=== PATIENT | male | born 1970 | race Caucasian/White ===

== ENCOUNTER 2017-11-28 20:19 | Emergency (ER) | payer OTHER, SELFPAY ==
[2017-11-28 20:21] VITALS: BP 137/86; PULSE 59; RESP 18; TEMP 36.9; O2SAT 98; BMI 33.5
[2017-11-28] MEDS: Ondansetron 4 MG/2 ML Vial IV (22:06)
[2017-11-28] MEDS: Morphine 4 MG/ML Syringe IV (22:07)
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
[2017-11-29 00:25] VITALS: BP 164/102; PULSE 96; RESP 16; O2SAT 96
== END 2017-11-29 00:26 | disposition home or self-care (01) ==
PROVIDERS: Emergency Provider Emergency Medicine; Family Provider Family Medicine; PCP Family Medicine
DX: S16.1XXA Strain of muscle, fascia and tendon at neck level, initial encounter (principal); S20.219A Contusion of unspecified front wall of thorax, initial encounter; T22.052A Burn of unspecified degree of left shoulder, initial encounter; V89.2XXA Person injured in unspecified motor-vehicle accident, traffic, initial encounter; Y93.9 Activity, unspecified; Y92.9 Unspecified place or not applicable
CPT/HCPCS: 70450; 70498; 71260; 72125; 93005; 96374; 96375; 99283; Q9967

== ENCOUNTER 2020-12-26 15:50 | Outpatient (CLI) | payer BC, SELFPAY ==
[2020-12-26] MEDS: 0.9% Saline Lock 10 ML Syringe IV (16:11)
[2020-12-26 16:13] VITALS: BP 150/84; PULSE 77; RESP 18; TEMP 37.5; O2SAT 97; BMI 36.0
[2020-12-26 16:55] VITALS: BP 147/92; PULSE 73; RESP 16; TEMP 37.9; O2SAT 98
[2020-12-26 17:55] VITALS: BP 151/84; PULSE 75; RESP 16; TEMP 37.4; O2SAT 98
== END 2020-12-26 17:58 | disposition home or self-care (01) ==
LOC: ICUOUT 15:50 → MS2 15:56
PROVIDERS: PCP Family Medicine; Referring Provider Nurse Practitioner Adult Health; Visit Provider Nurse Practitioner Adult Health
DX: Z23 Encounter for immunization (principal); U07.1 COVID-19
CPT/HCPCS: J7050; M0243; A4216; Q0244

== ENCOUNTER 2022-04-03 10:06 | Emergency (ER) | payer BC, SELFPAY ==
[2022-04-03 10:08] VITALS: BP 141/84; PULSE 80; RESP 16; TEMP 36.2; O2SAT 95; BMI 38.0
--- NOTE | 2022-04-03 10:34 | VDLE_ITS ---
Reason For Study: LEG PAIN RIGHT LEFT GSV is normal. CFV is compressible, spontaneous, phasic, CFV is compressible, spontaneous, phasic, competent, and demonstrates normal competent and demonstrates normal augmentation. augmentation. FV is compressible, spontaneous, phasic, competent and demonstrates normal augmentation. POP V is compressible, spontaneous, phasic, competent and demonstrates normal augmentation. T/P Trunk is compressible. PTV is compressible. RT PerV is compressible. Possible hematoma or injury noted in Rt medial gastrocnemius muscle. Procedure This is a venous duplex using B-mode, color flow and spectral Doppler. Exam performed portable in ED. The exam was diagnostic. A preliminary report was called and/or faxed to ED Charge Nurse. VL/Venous Duplex US, Unilateral Interpretation Summary There is no evidence of right lower extremity deep vein thrombosis. Right great saphenous vein appears patent and compressible segmentally. Vague finding right medial gastroc nemius muscle-- undefined, clinical correlation indicated. Normal flow patterns left common femoral vein Ordering Physician: Adolph Saunders Performed By: Yazan Gutierrez RVT
--- NOTE | 2022-04-03 10:35 | ED.VIS.LOWEX ---
HPI History of Present Illness Chief Complaint: Lower Extremity Injury Narrative Narrative: 51-year-old male presenting with right calf pain. He states this started a couple weeks ago. He states there was some bruising in the right medial calf which is slowly getting better. His pain is actually improving, and only hurts sometimes when he is walking.. He does not have any significant edema. Patient has no history of DVT, history of cancer, being bedridden or immobilized, trauma, exogenous hormones. Patient states he is ambulatory. He states his primary care physician wanted him to come to the ER to get an ultrasound to rule out DVT [facility] Medical History HTN (hypertension) Home Medications albuterol sulfate 90 mcg/actuation aerosol inhaler 2 inh inhalation Q4H PRN sob 12/26/20 [History Last Taken Unknown] meloxicam 15 mg tablet 15 mg PO DAILY 12/26/20 [History Last Taken Unknown] Allergy/AdvReac Type Severity Reaction Status Date / Time ampicillin Allergy Rash Verified 04/03/22 10:07 lisinopril AdvReac cough Verified 04/03/22 10:08 Social History Smoking Status: Unknown if ever smoked ROS ROS ED Constitutional Constitutional ED: Denies chills, fever(s) or sweats Eyes Eyes: Denies blurry vision or change in vision ENT ENT ED: Denies ear pain or sore throat Cardiovascular Cardiovascular: Denies chest pain, palpitations or racing heartbeat Respiratory/Chest Respiratory/Chest: Denies cough, dyspnea or sputum Gastrointestinal Gastrointestinal: Denies abdominal pain, constipation, diarrhea, nausea or vomiting Genitourinary Genitourinary ED: Denies dysuria, hematuria or urinary frequency Musculoskeletal Musculoskeletal: Reports other Details: Right medial calf pain ; Denies arthralgias, myalgias or neck pain Integumentary Denies abscess, Abrasions or rash Neurologic Neurologic: Denies headache(s), paresthesias or weakness Psychiatric Psychiatric: Denies anxiety, depression, suicidal ideation or suicidal thoughts Endocrine Endocrinology: Denies polydipsia or polyuria EXAM Physical Exam Const Vital Signs: 04/03/22 10:08 Temperature 97.2 F L Temperature Source Temporal Pulse Rate 80 Respiratory Rate 16 Blood Pressure 141/84 H Blood Pressure Mean 103 Pulse Ox 95 Oxygen Delivery Method Room Air Positive well nourished General Appearance ED: Negative for pallor HEENT Reports normocephalic, head/scalp atraumatic and moist mucous membranes Eyes PERRL and EOMs intact bilaterally Resp normal respiratory effort and no retractions Cardio regular rate and regular rhythm GI normal to inspection, nondistended, normoactive bowel sounds Auscultation: normoactive bowel sounds Palpation: soft Narrative: Deferred Extremity normal to inspection Extremity Narrative: Very mild tenderness right medial calf. No erythema, edema, induration. No cords palpated. General Extremety ED: Negative for edema General Extremity: Negative for edema Neuro oriented x3 and CN's II-XII intact bilaterally Sensorium / Orientation: alert Motor Exam: strength 5/5 throughout Psych mental status grossly normal Attitude: No agitated Skin no rashes or lesions noted and no wounds General Skin Exam: Negative for jaundice or pallor MDM MDM MDM Narrative Medical decision making narrative: Patient presented with right leg pain. He was referred to the emergency room for evaluation of concern for DVT. Venous Doppler was performed today and is negative for acute DVT. Patient counseled on findings. He is to follow-up with his PCP to ensure resolution. Impression: 1. Right leg pain Lab Data Attestation: I reviewed the patient's lab results. Discharge Plan Triage Chief Complaint: Lower Extremity Injury ED Provider: Adolph Saunders Dx/Rx/DC Orders Instructions: ED Leg Spasm Prescriptions: No Action meloxicam 15 mg tablet 15 mg PO DAILY Label Comments: TAKE 1 (ONE) TABLET (15 MG TOTAL) BY MOUTH DAILY . albuterol sulfate 90 mcg/actuation HFA aerosol inhaler 2 inh INHALATION Q4H PRN (Reason: sob) Label Comments: INHALE 2 PUFFS INSTRUCTED EVERY 4 HOURS NEEDED FOR WHEEZING/SHORTNESS OF BREATH. Primary Care Provider: Scooter Esquivel Referrals: Scooter Esquivel MD [Primary Care Provider] - Disposition Disposition: Home, Self Care Discharge Date/Time: 04/03/22 12:06
== END 2022-04-03 12:06 | disposition home or self-care (01) ==
PROVIDERS: Emergency Provider Student in an Organized Health Care Education/Training Program; PCP Family Medicine; Visit Provider Student in an Organized Health Care Education/Training Program
DX: M79.604 Pain in right leg (principal)
CPT/HCPCS: 93971; 99282

== ENCOUNTER → 2022-06-11 | Outpatient (CLI) | payer BC, SELFPAY ==
[2022-06-11 17:44] LABS: Absolute Lymphocyte Count 2.08 X10^3/uL (0.83-4.51); Absolute Neutrophil Count 6.8 X10^3/uL (2.0-7.7); Basophil# 0.06 X10^3/uL; Basophil% 0.6 % (0-1); Eosinophil# 0.16 X10^3/uL; Eosinophils% 1.6 % (0-5); Hematocrit 44.6 % (40-54); Hemoglobin 15.6 g/dL (13.0-16.5); Lymphocyte # 2.08 X10^3/ul (0.83-4.51); Lymphocyte % 21.1 % (19-41); Mean Corpuscular Hgb 30.2 pg (27.0-32.0); Mean Corpuscular Volume 86.4 fL (80-94); Mean Platelet Vol. 9.2 fl (6.2-12.0); Monocyte# 0.69 X10^3/uL; NRBC Flagged by Analyzer 0 % (0-5); Neutrophil # 6.77 X10^3/uL (2.7-7.7); Neutrophil % 68.7 % (47-70); Platelet Count 236 K/mm3 (150-450); RBC Distribution Width CV 12.2 % (11.6-14.6); RBC Distribution Width SD 38.6 fl (35.1-43.9); Red Blood Count 5.16 M/mm3 (4.6-6.2); White Blood Count 9.9 K/mm3 (4.4-11.0)
[2022-06-11 18:13] LABS: ALB/GLOB Ratio 1.1 RATIO (0.9-2.4); AST(SGOT) 23 U/L (15-37); Alanine Aminotransfer ALT/SGPT 47 U/L (16-61); Albumin, Serum 3.9 g/dL (3.2-5.0); Alkaline Phosphatase 85 U/L (45-117); Anion Gap 7 (5-15); BUN 20 mg/dL (7-18); BUN/Creat Ratio 20.8 RATIO (10-20); Calcium,Total 9.1 mg/dL (8.5-10.1); Chloride 105 mmol/L (98-107); Creatinine, Serum 0.96 mg/dL (0.70-1.30); EST Glomerular Filtration Rate 87 mL/min (>60); Est Glom Filt Rate - Afr Amer 106 mL/min (>60); Globulin 3.4 g/dL (2.2-4.2); Glucose 108 mg/dL (74-106); Potassium 3.9 mmol/L (3.5-5.1); Protein, Total 7.3 g/dL (6.4-8.2); Rheumatoid Factor < 10.0 IU/mL (<15); Sodium Level 139 mmol/L (136-145)
[2022-06-11 18:37] LABS: Hepatitis B Surface Antibody Non-Reactive; Hepatitis B Surface Antigen Non-Reactive (Nonreactive); Hepatitis C Antibody Non-Reactive (Nonreactive)
[2022-06-14 18:51] LABS: CCP IgG Antibodies 1 units (0-19)
== END | disposition home or self-care (01) ==
LOC: MTLAB 14:24
PROVIDERS: PCP Family Medicine; Referring Provider Internal Medicine Rheumatology; Visit Provider Internal Medicine Rheumatology
DX: M06.4 Inflammatory polyarthropathy (principal); M79.7 Fibromyalgia; M17.0 Bilateral primary osteoarthritis of knee; M18.0 Bilateral primary osteoarthritis of first carpometacarpal joints
CPT/HCPCS: 36415; 80053; 85025; 86038; 86200; 86431; 86706; 86803; 87340

== ENCOUNTER 2023-05-17 18:48 | Emergency (ER) | payer BC, SELFPAY ==
[2023-05-17 18:49] VITALS: BP 188/96; PULSE 92; RESP 20; TEMP 36.4; O2SAT 96; BMI 42.0
--- NOTE | 2023-05-17 19:35 | US_ITS ---
STUDY: VENOUS DOPPLER ULTRASOUND - RIGHT LOWER EXTREMITY REASON FOR EXAM: Male, 52 years old. RT LEG SWELLING AND ELEV D DIMER TECHNIQUE: Ultrasound evaluation of the deep vein system to include celis-scale imaging and compression was performed. Celis-scale imaging and Doppler sonographic evaluation, including duplex spectral analysis and qualitative color flow sonography, was performed. COMPARISON: None. FINDINGS: Common Femoral Vein: Normal compression, spontaneity and augmentation. Normal color Doppler. Common Femoral Vein/Greater Saphenous Junction: Normal compression, spontaneity and augmentation. Normal color Doppler. Deep Femoral Vein: Normal compression, spontaneity and augmentation. Normal color Doppler. Femoral Proximal: Normal compression, spontaneity and augmentation. Normal color Doppler. Femoral Middle: Normal compression, spontaneity and augmentation. Normal color Doppler. Femoral Distal: Normal compression, spontaneity and augmentation. Normal color Doppler. Popliteal Vein: Normal compression, spontaneity and augmentation. Normal color Doppler. Posterior Tibial Vein: Normal compression, spontaneity and augmentation. Normal color Doppler. Peroneal Vein: Normal compression, spontaneity and augmentation. Normal color Doppler. US/Venous Duplex Imag/Limited/Uni IMPRESSION: No evidence for DVT. Electronically Signed: Asher Reilly MD at 21:17 EST ,
--- OUTSIDE RECORDS SUMMARY | 2023-05-17 20:09 | XMS RPT_ITS | CCD ---
Author Name Unknown Address [address] [place] [address] Organization [facility] Care Team Providers Care Surgical Scrub Technologist Name Role Phone Scooter Esquivel MD Primary Care Provider SCOOTER ESQUIVEL Primary Care Unavailable CORINNE FAIRCHILD Attending Unavailable CORINNE FAIRCHILD Referring Unavailable SCOOTER ESQUIVEL Primary Care Unavailable CORINNE FAIRCHILD Attending Unavailable CORINNE FAIRCHILD Referring Unavailable Scooter Esquivel MD Primary Care Provider Caroline Romo MD Unavailable Scooter Esquivel MD Primary Care Provider Caroline Romo MD Unavailable Scooter Esquivel MD Primary Care Provider Scooter Esquivel MD Primary Care Provider Caroline Romo MD Unavailable Scooter Esquivel MD Primary Care Provider CORINNE FAIRCHILD Admitting Unavailable SCOOTER ESQUIVEL Primary Care Unavailable CORINNE FAIRCHILD Admitting Unavailable CORINNE FAIRCHILD Referring Unavailable SCOOTER ESQUIVEL Primary Care Unavailable SCOOTER ESQUIVEL Primary Care Unavailable CORINNE FAIRCHILD Attending Unavailable SCOOTER ESQUIVEL Primary Care Unavailable CORINNE FAIRCHILD Attending Unavailable KERLINE HANSEN Attending Unavailable SCOOTER ESQUIVEL Primary Care Unavailable CORINNE FAIRCHILD Admitting Unavailable CORINNE FAIRCHILD Referring Unavailable SCOOTER ESQUIVEL Primary Care Unavailable Caroline Romo MD Unavailable SCOOTER ESQUIVEL Primary Care Unavailable TOMASZ WISDOM Attending Unavailable POLIJUAN MELTON Referring Unavailable JUAN, SCOOTER J Primary Care Unavailable TOMASZ WISDOM Attending Unavailable POLITIJUAN Referring Unavailable JUAN, SCOOTER J Primary Care Unavailable TOMASZ WISDOM Attending Unavailable POLITIJUAN Referring Unavailable JUAN, SCOOTER J Primary Care Unavailable TOMASZ WISDOM Attending Unavailable POLITIJUAN Referring Unavailable CAROLINE ROMO M.D. Attending Unavailable JUAN, [facility] Primary Care Unavailable JUAN, [facility] Primary Care Unavailable JUAN, SCOOTER J Referring Unavailable JUAN, [facility] Primary Care Unavailable JUAN, SCOOTER Attending Unavailable JUAN, [facility] Primary Care Unavailable TOMASZ WISDOM Attending Unavailable POLITIJUAN Referring Unavailable JUAN, SCOOTER J Primary Care Unavailable POLITI, JUAN CORTEZ Referring Unavailable JUAN, [facility] Primary Care Unavailable TOMASZ WISDOM Attending Unavailable POLITIJUAN Referring Unavailable JUAN, SCOOTER J Primary Care Unavailable TOMASZ WISDOM Attending Unavailable POLITIJUAN Referring Unavailable JUAN, [facility] Primary Care Unavailable TOMASZ WISDOM Attending Unavailable POLITIJUAN Referring Unavailable JUAN, [facility] Primary Care Unavailable TOMASZ WISDOM Attending Unavailable POLITIJUAN Referring Unavailable JUAN, [facility] Primary Care Unavailable TOMASZ WISDOM Attending Unavailable POLITIJUAN Referring Unavailable JUAN, [facility] Primary Care Unavailable TOMASZ WISDOM Attending Unavailable POLITIJUAN Referring Unavailable JUAN, SCOOTER J Primary Care Unavailable TOMASZ WISDOM Attending Unavailable POLITIJUAN Referring Unavailable JUAN, [facility] Primary Care Unavailable TOMASZ WISDOM Attending Unavailable POLITIJUAN Referring Unavailable JUAN, [facility] Primary Care Unavailable POLITIJUAN Referring Unavailable JUAN, [facility] Primary Care Unavailable TOMASZ WISDOM Attending Unavailable POLITIJUAN Referring Unavailable JUAN, SCOOTER J Primary Care Unavailable JUAN, [facility] Primary Care Unavailable JUAN, SCOOTER J Referring Unavailable JUAN, [facility] Primary Care Unavailable SURAJ KING II Attending Unavailabl e JUAN, S[facility] [place] Primary Care Unavailable JUAN, SCOOTER J Referring Unavailable JUAN, SCOOTER Primary Care Unavailable TOMASZ WISDOM Attending Unavailable POLITIJUAN Referring Unavailable JUAN, [facility] Primary Care Unavailable TOMASZ WISDOM Attending Unavailable POLILINH, JUAN CORTEZ Referring Unavailable JUAN, SCO[place]ER [place] Primary Care Unavailable POLITI, JUAN CORTEZ Referring Unavailable JUAN, S[place] [place] Primary Care Unavailable TOMASZ WISDOM Attending Unavailable POLITI, JUAN CORTEZ Referring Unavailable JUAN, S[place] Primary Care Unavailable TOMASZ WISDOM Attending Unavailable POLITI, JUAN CORTEZ Referring Unavailable JUAN, S[place] [place] Primary Care Unavailable TOMASZ WISDOM Attending Unavailable POLITI, JUAN CORTEZ Referring Unavailable JUAN, S[place] [place] Primary Care Unavailable POLITI, JUAN CORTEZ Referring Unavailable JUAN, SCO[place]ER [place] Primary Care Unavailable POLITI, JUAN CORTEZ Referring Unavailable JUAN, SCO[place]ER [place] Primary Care Unavailable POLITI, JUAN CORTEZ Referring Unavailable JUAN, S[facility] [place] Primary Care Unavailable TOMASZ WISDOM Attending Unavailable POLITI, JUAN CORTEZ Referring Unavailable JUAN, S[place] [place] Primary Care Unavailable TOMASZ WISDOM Attending Unavailable POLITI, JUAN CORTEZ Referring Unavailable JUAN, S[facility] [place] Primary Care Unavailable TOMASZ WISDOM Attending Unavailable POLITI, JUAN CORTEZ Referring Unavailable Allergies Allergy Classification Reported Allergen(s) Allergy Type Date of Onset Reaction(s) Facility Penicillins (antibiotic) (2 sources) Ampicillin; Translations: [AMPICILLIN] Drug Allergy 3 [facility] (20 sources) Ampicillin; Translations: [AMPICILLIN] Drug Allergy 3 [facility] (20 sources) Seasonal allergy; Translations: [SEASONAL ALLERGIES] Propensity to adverse reactions 5 Cough [facility] (20 sources) Lisinopril; Translations: [LISINOPRIL] Drug Allergy 2 Cough, Other (See Comments) [facility] Medications Current Medications Medication Drug Class(es) Dates Sig (Normalized) Sig (Original) cefdinir 300 mg oral capsule (1 source) Cephalosporin Antibacterial Start: 07-23-2021 End: 07-30-2021 take 1 capsule by mouth twice daily cefdinir (OMNICEF) 300 mg capsule Take 1 capsule by mouth twice daily for 7 days. 14 capsule 0 07/23/2021 07/30/2021 Active Completed/Discontinued Medications Medication Drug Class(es) Dates Sig (Normalized) Sig (Original) [id number] 200 actuat albuterol 0.09 mg/actuat metered dose inhaler (20 sources) beta2-Adrenergic Agonist Start: 04-05-2023 take 2 puff(s) by inhalation every four hours as needed for wheezing albuterol HFA (PROVENTIL HFA) 90 mcg/actuation inhaler Indications: Wheezing Inhale 2 Puffs as instructed every 4 hours as needed for wheezing/shortnes s of breath. 8 g 0 04/05/2023 Active Problems Active Problems Problem Classification Problem Date Documented Date Episodic/Chronic Acute myocardial infarction (20 sources) Myocardial infarction; Translations: [Non-ST elevation (NSTEMI) myocardial infarction] Onset: 5 09-24-2020 Chronic Administrative/socia l admission (2 sources) Repeated prescription; Translations: [Encounter for issue of repeat prescription] Episodic Coronary atherosclerosis and other heart disease (20 sources) Coronary arteriosclerosis in [place] artery; Translations: [Atherosclerotic heart disease of [place] coronary artery without angina pectoris] Onset: 5 09-24-2020 Chronic Diabetes mellitus without complication (20 sources) Increased glucose level; Translations: [Other abnormal glucose] Onset: 3 08-05-2012 Episodic Disorders of lipid metabolism (20 sources) Hyperlipidemia; Translations: [Hyperlipidemia, unspecified] Onset: 0 09-24-2020 Chronic Disorders of teeth and jaw (2 sources) Toothache; Translations: [Other specified disorders of teeth and supporting structures] Episodic Esophageal disorders (2 sources) Gastroesophageal reflux disease; Translations: [Gastro-esophageal reflux disease without esophagitis] Chronic Essential hypertension (20 sources) Essential hypertension; Translations: [Essential (primary) hypertension] Onset: 5 09-24-2020 Chronic Osteoarthritis (20 sources) Osteoarthritis of right knee joint; Translations: [Unilateral primary osteoarthritis, right knee] Onset: 2 Chronic Other acquired deformities (20 sources) Equinus contracture of the ankle; Translations: [Contracture, unspecified ankle] Onset: 7 04-28-2016 Chronic Other aftercare (1 source) Other correction (current) drug therapy; Translations: [Long-term (current) use of other medications] Episodic Other connective tissue disease (20 sources) History of total knee arthroplasty; Translations: [Presence of right artificial knee joint] Onset: 3 01-26-2023 Chronic Other connective tissue disease (2 sources) Tendonitis of left wrist; Translations: [Other enthesopathies, not elsewhere classified] Episodic Other connective tissue disease (1 source) Bursitis of unspecified shoulder; Translations: [Disorders of bursae and tendons in shoulder region, unspecified] Episodic Other connective tissue disease (1 source) Capsulitis of metatarsophalangeal joint of right foot; Translations: [Other enthesopathy of right foot and ankle] Episodic Other connective tissue disease (1 source) Foot pain; Translations: [Pain in unspecified foot] Episodic Other connective tissue disease (1 source) Triggering of digit; Translations: [Trigger finger, right middle finger] Episodic Other injuries and conditions due to external causes (1 source) H/O: fracture; Translations: [Personal history of (healed) traumatic fracture] Episodic Other nervous system disorders (1 source) Poor concentration; Translations: [Attention and concentration deficit] Chronic Other non-traumatic joint disorders (1 source) Joint pain; Translations: [Pain in unspecified joint] Episodic Other non-traumatic joint disorders (1 source) Multiple joint pain; Translations: [Pain in unspecified joint] Episodic Other non-traumatic joint disorders (4 sources) Pain in unspecified joint; Translations: [Pain in unspecified joint] Onset: 3 Episodic Other nutritional; endocrine; and metabolic disorders (20 sources) Obesity; Translations: [Obesity, unspecified] Onset: 5 12-06-2014 Chronic Other screening for suspected conditions (not mental disorders or infectious disease) (2 sources) Patient encounter status; Translations: [Encounter for screening for malignant neoplasm of colon] Episodic Other upper respiratory disease (2 sources) Disorder of epiglottis; Translations: [Other diseases of larynx] Episodic Other upper respiratory infections (1 source) Acute frontal sinusitis; Translations: [Acute frontal sinusitis, unspecified] 05-16-2023 Episodic Otitis media and related conditions (1 source) Acute right otitis media; Translations: [Otitis media, unspecified, right ear] Episodic Residual codes; unclassified (20 sources) Obstructive sleep apnea syndrome; Translations: [Obstructive sleep apnea (adult) (pediatric)] Onset: 6 09-24-2020 Chronic Residual codes; unclassified (1 source) Obstructive sleep apnea (adult) (pediatric); Translations: [ANÍBAL (obstructive sleep apnea)] Onset: 7 Chronic Residual codes; unclassified (3 sources) Pain; Translations: [Pain, unspecified] Episodic Residual codes; unclassified (2 sources) Pain, unspecified; Translations: [Pain, unspecified] Onset: 3 Episodic Residual codes; unclassified (1 source) Bilateral lower limb edema; Translations: [Localized edema] 05-16-2023 Episodic Rheumatoid arthritis and related disease (20 sources) Inflammatory polyarthropathy; Translations: [Other specified inflammatory polyarthropathies] Onset: 4 08-05-2003 Chronic Unclassified (20 sources) SUMMARY Onset: 5 02-16-2015 Past or Other Problems Problem Classification Problem Date Documented Da te Episodic/Chronic Blindness and vision defects (20 sources) Presbyopia; Translations: [Presbyopia] Onset: 01-01-2015 01-10-2017 Episodic Immunizations and screening for infectious disease (1 source) Encounter for immunization; Translations: [Encounter for immunization] Onset: 12-27-2022 Episodic Other connective tissue disease (2 sources) Trigger finger, right middle finger; Translations: [Trigger finger, right middle finger] Onset: 09-09-2021 Episodic Other non-traumatic joint disorders (20 sources) Sesamoiditis; Translations: [Other specified joint disorders, unspecified joint] Onset: 12-06-2013 12-06-2013 Episodic Residual codes; unclassified (20 sources) Family history of diabetes mellitus; Translations: [Family history of diabetes mellitus] Onset: 10-24-2009 10-24-2009 Episodic Results Test Name Value Interpretation Reference Range Facil ity Vital Signs Date Time Vital Sign Value Performing Clinician Faci lity 05-16-2023 16:37-0500 Diastolic blood pressure 84 mm[Hg] Catrina Clark APRN.JOINERY MACHINIST Work Phone: [facility] 05-16-2023 16:37-0500 Systolic blood pressure 149 mm[Hg] Catrina Clark APRN.JOINERY MACHINIST Work Phone: [facility] 05-16-2023 16:36-0500 Heart rate 98 /min Catrina Clark APRN.JOINERY MACHINIST Work Phone: [facility] 05-16-2023 16:24-0500 Body temperature 97.81 [degF] Catrina Cabreraan CIGARETTE INSPECTOR.JOINERY MACHINIST Work Phone: [facility] 05-16-2023 16:24-0500 Body weight 114.76 kg Catrina Suppan CIGARETTE INSPECTOR.JOINERY MACHINIST Work Phone: [facility] 05-16-2023 16:24-0500 Respiratory rate 20 /min Catrina Suppan CIGARETTE INSPECTOR.JOINERY MACHINIST Work Phone: [facility] 05-16-2023 16:24-0500 SaO2% (BldA) [Mass fraction] 96 % Catrina Suppan CIGARETTE INSPECTOR.JOINERY MACHINIST Work Phone: [facility] 12-27-2022 17:52-0400 Body weight 110.68 kg Scooter Esquivel MD Work Phone: [facility] 12-27-2022 17:52-0400 Diastolic blood pressure 78 mm[Hg] Scooter Esquivel MD Work Phone: [facility] 12-27-2022 17:52-0400 Heart rate 82 /min Scooter Esquivel MD Work Phone: [facility] 12-27-2022 17:52-0400 SaO2% (BldA) [Mass fraction] 96 % Scooter Esquivel MD Work Phone: [facility] 12-27-2022 17:52-0400 Systolic blood pressure 132 mm[Hg] Scooter Esquivel MD Work Phone: [facility] 10-19-2022 16:19-0400 Body height 168.9 cm Caroline Romo MD Work Phone: [facility] 10-19-2022 16:19-0400 Body weight 108.41 kg Caroline Romo MD Work Phone: [facility] 10-19-2022 16:19-0400 Diastolic blood pressure 88 mm[Hg] Caroline Romo MD Work Phone: [facility] 10-19-2022 16:19-0400 Heart rate 80 /min Caroline Romo MD Work Phone: [facility] 10-19-2022 16:19-0400 Systolic blood pressure 132 mm[Hg] Caroline Romo MD Work Phone: [facility] 10-24-2021 14:25-0400 Body temperature 97.81 [degF] Aime Jansen MD Work Phone: [facility] 10-24-2021 14:25-0400 Body weight 105.69 kg Aime Jansen MD Work Phone: [facility] 10-24-2021 14:25-0400 Diastolic blood pressure 82 mm[Hg] Aime Jansen MD Work Phone: [facility] 10-24-2021 14:25-0400 Heart rate 72 /min Aime Jansen MD Work Phone: [facility] 10-24-2021 14:25-0400 Respiratory rate 16 /min Aime Jansen MD Work Phone: [facility] 10-24-2021 14:25-0400 SaO2% (BldA) [Mass fraction] 96 % Aime Jansen MD Work Phone: [facility] 10-24-2021 14:25-0400 Systolic blood pressure 136 mm[Hg] Aime Jansen MD Work Phone: [facility] 08-25-2021 16:10-0400 Body height 170.2 cm Smiley Tomy PA-C Work Phone: [facility] 08-25-2021 16:10-0400 Body temperature 97.3 [degF] Smiley Hopkins PA-C Work Phone: [facility] 08-25-2021 16:10-0400 Body weight 107.05 kg Smiley Hopkins PA-C Work Phone: [facility] 08-25-2021 16:10-0400 Diastolic blood pressure 82 mm[Hg] Smiley Hopkins PA-C Work Phone: [facility] 08-25-2021 16:10-0400 Heart rate 75 /min Smiley Hopkins PA-C Work Phone: [facility] 08-25-2021 16:10-0400 SaO2% (BldA) [Mass fraction] 96 % Smiley Tomy PA-C Work Phone: [facility] 08-25-2021 16:10-0400 Systolic blood pressure 122 mm[Hg] Smiley Hopkins PA-C Work Phone: [facility] 08-19-2021 11:30-0400 Diastolic blood pressure 72 mm[Hg] Alen Dickerson MD Work Phone: [facility] 08-19-2021 11:30-0400 Heart rate 60 /min Alen Dickerson MD Work Phone: [facility] 08-19-2021 11:30-0400 Respiratory rate 13 /min Alen Dickerson MD Work Phone: [facility] 08-19-2021 11:30-0400 SaO2% (BldA) [Mass fraction] 95 % Alen Dickerson MD Work Phone: [facility] 08-19-2021 11:30-0400 Systolic blood pressure 124 mm[Hg] Alen Dickerson MD Work Phone: [facility] 08-19-2021 11:03-0400 Body temperature 97 [degF] Alen Dickerson MD Work Phone: [facility] 08-14-2021 16:26-0400 Body height 167.6 cm Caroline Romo MD Work Phone: [facility] 08-14-2021 16:26-0400 Body weight 107.96 kg Caroline Romo MD Work Phone: [facility] 08-14-2021 16:26-0400 Diastolic blood pressure 88 mm[Hg] Caroline Romo MD Work Phone: [facility] 08-14-2021 16:26-0400 Heart rate 76 /min Caroline Romo MD Work Phone: [facility] 08-14-2021 16:26-0400 Systolic blood pressure 130 mm[Hg] Caroline Romo MD Work Phone: [facility] 07-23-2021 17:45-0400 Body temperature 97.9 [degF] Malachi Chaudhry CIGARETTE INSPECTOR.SOLE STAPLER WELT Work Phone: [facility] 07-23-2021 17:45-0400 Body weight 110.59 kg Malachi Chaudhry CIGARETTE INSPECTOR.SOLE STAPLER WELT Work Phone: [facility] 07-23-2021 17:45-0400 Diastolic blood pressure 84 mm[Hg] Malachi Chaudhry CIGARETTE INSPECTOR.SOLE STAPLER WELT Work Phone: [facility] 07-23-2021 17:45-0400 Heart rate 76 /min Malachi Chaudhry CIGARETTE INSPECTOR.SOLE STAPLER WELT Work Phone: [facility] 07-23-2021 17:45-0400 Respiratory rate 16 /min Malachi Chaudhry CIGARETTE INSPECTOR.SOLE STAPLER WELT Work Phone: [facility] 07-23-2021 17:45-0400 SaO2% (BldA) [Mass fraction] 97 % Malachi Chaudhry CIGARETTE INSPECTOR.SOLE STAPLER WELT Work Phone: [facility] 07-23-2021 17:45-0400 Systolic blood pressure 138 mm[Hg] Malachi Chaudhry CIGARETTE INSPECTOR.SOLE STAPLER WELT Work Phone: [facility] 09-23-2020 15:16-0400 Body height 170.2 cm Corinne Fairchild SOLE STAPLER WELT Work Phone: [facility] 09-23-2020 15:16-0400 Body mass index (BMI) [Ratio] 35.24 kg/m2 Corinne Fairchild SOLE STAPLER WELT Work Phone: [facility] 09-23-2020 15:16-0400 Body weight 102.06 kg Corinne Fairchild SOLE STAPLER WELT Work Phone: [facility] Encounters Encounter Date Encounter Type Care Provider Facility Start: 05-16-2023 End: 05-16-2023 Office outpatient visit 25 minutes Catrina Clark CIGARETTE INSPECTOR.JOINERY MACHINIST Work Phone: [facility] Procedures Date Procedure Procedure Detail Performing Clinician Start: 12-27-2022 INFLUENZA VACCINE, AGE 6 MO - 64 YR, QUADRIVALENT (AFLURIA, FLULAVAL, FLUZONE) Scooter Esquivel MD Work Phone: Start: 10-19-2022 Ecg routine ecg w/least 12 lds i&r only [facility] Provider Start: 06-01-2022 Arthrocentesis aspir&/inj major jt/bursa w/o us Corinne Fairchild SOLE STAPLER WELT Work Phone: Start: 06-01-2022 Injection 1 tendon sheath/ligament aponeurosis Corinne Fairchild SOLE STAPLER WELT Work Phone: Start: 05-22-2022 Lipid 1996 panel - Serum or Plasma Willi katie Esquivel MD Work Phone: Start: 08-19-2021 Colon ca scrn not hi rsk ind Smiley Huitron PA-C Work Phone: Start: 08-19-2021 Esophagogastroduodenoscopy transoral diagnostic Smiley Huitron PA-C Work Phone: Start: 08-19-2021 Colonoscopy Alen Dickerson MD Work Phone: Start: 09-23-2020 Arthrocentesis aspir&/inj major jt/bursa w/o us Coirnne Fairchild [employer]LE STAP[employer]ER [employer]T Work Phone: Start: 06-08-2018 Adult depression screening assessment Virginia Stevens DPM Work Phone: Plan of Treatment Date Care Activity Detail Author Start: 08-20-2031 Screening for malign ant neoplasm of colon [facility] Start: 05-22-2027 Lipid 1996 panel - S soumya or Plasma Lipid Screening [facility] Start: 05-22-2027 Lipid panel Lipid Screening [facility] Start: 05-22-2027 LIPID SCREEN LIPID SCREEN [facility] Start: 08-19-2026 Colonoscopy COLONOSCOPY [facility] Start: 08-19-2026 COLORECTAL CANCER SCREENING COLORECTAL CANCER SCREENING [facility] Start: 08-19-2026 Screening for malign ant neoplasm of colon [facility] Start: 01-21-2027 LIPID SCREEN LIPID SCREEN [facility] Start: 12-29-2025 Diabetes Screening Diabetes Screenin g [facility] Start: 10-29-2025 Diabetes Screening Diabetes Screenin g [facility] Start: 05-22-2025 DIABETES SCREEN DIABETES SCREEN [facility] Start: 05-01-2024 DIABETES SCREEN DIABETES SCREEN [facility] Start: 02-23-2024 Tetanus vaccination Tetanus: Every 1 0yrs [facility] Start: 02-23-2024 Urine microalbumin profile [facility] Start: 12-28-2023 Annual PCP Team Consultant Internship samuel Disease Visit Annual PCP Team Chronic Disease Visit [facility] Start: 12-28-2023 Covid-19 Vaccine ( season) Covid-19 Vaccine () [facility] Immunizations Immunization Date Immunization Notes Care Provider Angi garza 12-27-2022 influenza, injectabl e, quadrivalent, contains preservative Scooter Esquivel MD Work Phone: [facility] [facility] [place] 02-08-2020 influenza, seasonal, injectable Virginia Hild DPM Work Phone: [facility] [place] 02-20-2019 influenza, injectabl e, quadrivalent, contains preservative Virginia Hild DPM Work Phone: [facility] [place] 02-11-2018 influenza, injectabl e, quadrivalent, contains preservative Virginia Hild DPM Work Phone: [facility] [place] 01-11-2017 influenza, injectabl e, quadrivalent, contains preservative Virginia Hild DPM Work Phone: [facility] [place] 06-01-2016 influenza, injectabl e, quadrivalent, preservative free Virginia Hild DPM Work Phone: [facility] [place] 01-24-2015 influenza, seasonal, injectable Virginia Hild DPM Work Phone: [facility] [place] 02-22-2014 tetanus toxoid, redu marcelino diphtheria toxoid, and acellular pertussis vaccine, adsorbed Virginia Hild DPM Work Phone: [facility] [place] Work Phone: 03-21-2013 influenza virus vaccine, unspecified formulation Virginia Hild DPM Work Phone: [facility] [place] 08-26-2003 tetanus and diphther ia toxoids, adsorbed, preservative free, for adult use (2 Lf of tetanus toxoid and 2 Lf of diphtheria toxoid) Virginia Stevens DPM Work Phone: [facility] [place] Payers Date Payer Category Payer Unknown [id number] 2021 Unknown MIKYDANIELLA ARORA [employer]E SS PPO [id number] 2021-Present [phone] [id number] [place] [address] PPO [id number] 2018 Unknown [id number] 2018 Unknown [id number] 2018 Unknown [id number] 2018 Unknown [id number] 2017 Unknown VISION SERVICE P [facility] VISION [id number] 2017-Present [address] [facility] [id number] [place] [address] Indemnity [id number] 2017 Unknown [id number] 2011 Unknown EYE [employer] PLAN [employer] VISION [id number] 04/11/2011-Present [address] [facility] [id number] [place] [address] Indemnity [id number] 04-11-2011 Unknown [id number] 1970 Unknown [id number] 2 1970 Unknown [id number] 2 1970 Unknown [id number] 3 1970 Unknown [id number] 3 1970 Unknown [id number] 3 1970 Unknown [id number] 3 1970 Unknown [id number] 3 1970 Unknown [id number] 3 Social History Date Type Detail Facility Tobacco smoking stat [facility] Unknown if ever smoked [facility] Start: 1970 Sex Assigned At Not on file O [facility] Start: 07-04-2021 End: 05-31-2022 Exposure to SARS-CoV-2 (event) Not sure [facility] Start: 09-24-2020 End: 12-08-2021 Tobacco smoking status NHIS Former smoker [facility] [place] Start: 09-23-2020 End: 09-24-2020 Tobacco use and exposure Never used [facility] Start: 09-24-2020 End: 05-16-2023 Alcohol intake Current drinker of alcohol (finding) [facility] Start: 09-23-2020 Alcohol Comment 1-4 drinks per week [facility] History of tobacco use Cigarette Smoker [facility] History of tobacco use Current smoker [facility] Start: 12-08-2021 End: 10-19-2022 Cigarettes smoked current (pack per day) - Reported 0.5 [facility] [place] Start: 12-08-2021 Tobacco use and exposure Roseline wright smokeless tobacco user [facility] [place] Start: 03-31-2022 History SDOH Alcohol Frequency 3 [facility] [place] Start: 03-31-2022 History SDOH Alcohol Std Drinks 2 [facility] [place] Start: 03-31-2022 History SDOH Social Connections Phone 5 [facility] [place] Start: 03-31-2022 History SDOH Social Connections Membership 1 [facility] [place] Start: 03-31-2022 History SDOH Physica l Activity MPS 0 [facility] [place] Start: 03-31-2022 History SDOH Financial 4 [facility] [place] Start: 06-01-2022 End: 10-19-2022 Tobacco use panel [facility] [place] Start: 09-23-2020 Gender identity Identifies as male gender (finding) [facility] Start: 09-23-2020 Sexual orientation Heterosexual (fin yessi) [facility] Do you belong to any clubs or organizations such as roman catholic groups, unions, fraternal or athletic groups, or school groups? Yes [facility] [place] Are you now , , , , never or living with a partner? [facility] [place] How often to you hav e a drink containing alcohol? 2-4 times a month [facility] [place] How many standard dr inks containing alcohol do you have on a typical day? 3 or 4 [facility] [place] How often do you hav e 6 or more drinks on 1 occasion? Less than monthly [facility] [place] How hard is it for y ou to pay for the very basics like food, housing, medical care, and heating Not very hard [facility] [place] Adult Depression Scr eening Assessment 0 [facility] [place] Do you feel stress - tense, restless, nervous, or anxious, or unable to sleep at night because your mind is troubled all the time - these days [OSQ] Only a little [facility] [place] (I/We) worried wheth er (my/our) food would run out before (I/we) got money to buy more. Never true [facility] [place] In the past 12 month s, was there a time when you were not able to pay the mortgage or rent on time? No [facility] [place] Clinical Notes 04-28-2016 to 05-16-2023 Patient InstructionsSuCatrina jones APRN.JOINERY MACHINIST - 05/16/2023 4:43 PM Tomasz Godwin, PT - 05/11/2023 5:54 PM Tomasz Godwin, PT - 03/25/2023 1:49 PM ESTPatient Instructions Note Date & Type Note Facility 05-16-2023 Instructions Catrina Clark APRN.JOINERY MACHINIST - 05/16/2023 5:12 PM EST 1) Get labs today 2) No Meloxicam while on steroid 3) Doxycycline 100mg 2 x day for 10 days for sinus infection 4) Keep appt. With Dr. Esquivel next month documented in this encounter [facility] [place] 05-16-2023 History of Present illness Narrative This is a 52 year old male who presents today with: Patient presents with: Edema: Bilateral lower legs Dizziness Shortness of Breath HISTORY OF PRESENT ILLNESS: Gregory Barrera is a 52 year old male. Patient presents with: Edema: Bilateral lower legs Dizziness Shortness of Breath On 6th prescription of dexamethasone to get control of pain. Has not been doing exercises regularly. Back to work as of 05/09/23. Worried about swelling in both lower legs. BP a little elevated. Pain behind knee cap , both sides of patella, and and lateral lower leg. Dizzy this morning for about 5 hours this morning. Short of breath- breathing heavy for awhile. ANÍBAL- wears CPAP every night, using melatonin 30 min before bedtime REVIEW OF SYSTEMS GENERAL: + weight loss of 20 lb since surgery, + tired, no fevers/chills HEENT:More frequent dull headaches, No changes in hearing or vision. Family thinks he can't hear well. NECK: Negative for lumps, goiter, pain and significant neck swelling RESPIRATORY: Negative for cough, hemoptysis, wheezing, some dyspnea or shortness of breath even at rest CARDIOVASCULAR: Negative for chest pain, some sock lines leg swelling, orthopnea, or palpitations GI: No nausea, vomiting, or diarrhea/constipation. No hematochezia/melena. + heartburn or reflux symptoms. : No history of dysuria, frequency or incontinence MUSCULOSKELETAL: Pain in TKA- 04/20, swelling 1+ right, trace left SKIN: Rash medial right leg from ice pack PAST MEDICAL HISTORY: PAST MEDICAL HISTORY Diagnosis Date Acute gastritis Coronary artery disease Hyperlipidemia Hypertension AÍNBAL (obstructive sleep apnea) [facility] in [place] Osteoarthritis of multiple joints Rheumatoid arthritis(714.0) pt states he was misdiagnosed- he has osteoarthritis PAST SURGICAL HISTORY Procedure Laterality Date COLONOSCOPY 08/19/2021 consider repeat in 5 years based on prep EGD W/O [facility] SPEC VARICIES INJ 08/19/2021 epiglottis nodule. GERD and gastritis PAST SURGICAL HISTORY OF Right 04/1994 4th finger repair RPR 1ST INGUN HRNA AGE 6 MO-5 YRS INCARCERATED 09/1975 ALLERGIES Ampicillin, Lisinopril, and Seasonal Allergies MEDICATIONS Current Outpatient Medications Medication Sig albuterol HFA (PROVENTIL HFA) 90 mcg/actuation inhaler Inhale 2 Puffs as instructed every 4 hours as needed for wheezing/shortness of breath. atorvastatin (LIPITOR) 80 mg tablet TAKE ONE TABLET BY MOUTH EVERY NIGHT AT BEDTIME losartan (COZAAR) 50 mg tablet TAKE ONE TABLET BY MOUTH DAILY isosorbide mononitrate ER (IMDUR) 30 mg 24 hr tablet TAKE ONE TABLET BY MOUTH DAILY carvedilol (COREG) 3.125 mg tablet TAKE ONE TABLET BY MOUTH TWICE DAILY WITH MEALS. buPROPion XL (WELLBUTRIN XL) 300 mg 24 hr tablet Take 1 tablet by mouth once daily. omeprazole (PRILOSEC) 20 mg capsule Take 1 capsule by mouth once daily. aspirin 81 mg chewable tablet Take 1 tablet by mouth once daily. CPAP NEW SET UP: Settings 7 - 15 cm H2O, suitable mask per pt preference, chin strap, head gear, humidity, tubing, lifetime supplies. G47.33 ANÍBAL No current facility-administered medications for this visit. FAMILY HISTORY Problem Relation Age of Onset Heart Father other (Heart attack) Father at around 60 years of age Diabetes Mother Hypertension Sister Diabetes Maternal Grandmother Heart Maternal Grandfather several heart attacks Hypertension Paternal Grandfather Social History Tobacco Use Smoking status: Former Packs/day: .5 Types: Cigarettes Smokeless tobacco: Former Vaping Use Vaping Use: Never used Substance Use Topics Alcohol use: Yes Alcohol/week: 2.6 standard drinks of alcohol Types: 2 Mixed Drinks per week Comment: 1 mixed drink a month Drug use: No EXAM: BP 149/84 Pulse 98 Temp 36.6 C (97.8 F) (Left Tympanic) Resp 20 Wt 114.8 kg (253 lb) SpO2 96% BMI 40.23 kg/m PHYSICAL EXAM: General Appearance: Well appearing, alert, in no acute distress, well-hydrated, well nourished. and Obese. Skin: Skin color, texture, turgor normal, no suspicious rashes or lesions, viri red cheks. Head: .normocephalic and atraumatic Nasal: ears buldging, nasal turbinates red & inflamed, right nare w/ erosions Neck: Supple, no adenopathy; thyroid symmetric, normal size, no bruits, thick- full neck. Lungs: Lungs clear to auscultation. No wheezing, rhonchi, rales.. Heart: RRR without murmur, gallop, or rubs. No ectopy. Abdomen: Normal abdominal exam, Abdomen soft, non-tender. Bowel sounds normal. No masses, organomegaly, hypoactive FERNANDEZ. Musculoskeletal: right knee mild swelling, right lower leg with 1+ edema, negative Yusuf's sign; left with trace edema- sock lines. Peripheral Pulses: Normal. Neurologic: Gait normal. Reflexes normal and symmetric. Sensation grossly intact.. ASSESSMENT/PLAN: 1. Status post total knee replacement, right - ICD9: V43.65, ICD10: Z96.651 (primary diagnosis) Patient has been on dexamethasone long tapers since January. His weight has increased by 20 pounds. 2. History of CT (myocardial infarction) - ICD9: 412, ICD10: I25.2 Stable. No chest pain or orthopnea. Blood pressure has increased but patient has been taking high-dose steroids since January. Has an appointment next month, will need blood pressure rechecked. If it remains elevated, medications will need to be adjusted. - COMP METABOLIC PANEL - NT PRO BNP - CBC + DIFF 3. ANÍBAL (obstructive sleep apnea) - ICD9: 327.23, ICD10: G47.33 Wearing CPAP - CBC + DIFF 4. Bilateral lower extremity edema - ICD9: 782.3, ICD10: R60.0 Negative Homans' sign, very doubtful that he has a DVT. Patient has been on long-term steroids and meloxicam. D-dimer as a precaution. If slightly elevated even, will get a venous Doppler. - COMP METABOLIC PANEL - D-DIMER 5. Prediabetes - ICD9: 790.29, ICD10: R73.03 Check hemoglobin A1c. Patient would like to be on Ozempic for weight loss. Discussed the fact that he is not actually diabetic. Although blood sugars may have increase the 20 pound weight gain. - HGB A1C 6. Acute frontal sinusitis, recurrence not specified - ICD9: 461.1, ICD10: J01.10 Likely the source of patient's wheezing as it is upper airway wheezing. - DOXYCYCLINE HYCLATE 100 MG TABLET for 10 days Discussed treatment plan and patient voices understanding. Patient's questions answered appropriately. Medications and potential side effects were discussed and patient voices understanding. Return to the office as scheduled or as needed for worsening/no improvement. The patient indicates understanding of these issues and agrees with the plan. documented in this encounter [facility] [place] 05-11-2023 Note HNO ID: [id number] Author: TOMASZ WISDOM PT Service: ? Author Type: Physical Therapist Type: Progress Notes Filed: 05/12/2023 09:28 Note Text: Episode Visit Count: 7 Therapist That Will Accept/Oversee The Plan Of Care: Tomasz Wisdom PT. Start of Care Date: 01/26/23 Onset Date: 01/24/23 Patient Identified by Name and Date of : Yes REHABILITATION AND SPORTS THERAPY PHYSICAL THERAPY TREATMENT NOTE ASSESSMENT: Gregory Barrera tolerated the session with fatigue and expected muscle soreness. He demonstrated difficulty with compensation of lateral trunk lean with R SLS. The patient will continue to benefit from ongoing skilled physical therapy to progress toward set goals. PLAN FOR NEXT VISIT: Continue LE strengthening, add more core strength. SUBJECTIVE: Pt returned to work this week and states that his knee is swelling due to being on his feet all day. Pt's knee is now back to being sensitive to touch. Pt requests to do some stretching in session due to swelling of his knee. Pain: Pain Pain Level: 3 Pain Location: Knee - Right Description: Tightness (due to swelling) Post Treatment Pain Post Treatment Pain Location: Knee - Right OBJECTIVE MEASURES WITH LEVEL OF FUNCTION: RLE easily fatigued with single leg standing exercises. TREATMENT: Therapeutic Exercise: 1: Stationary Upright Bike Full-Revolutions, Seat Height 5: 6.5 Minutes, level 3.0. (Direct 1:1 throughout, subjective taken.) 2: Prone quad stretch 3x30 seconds 3: Supine hip flexor / quad stretch 3x30 seconds RLE 4: Standing hip stabilization with R SLS with physioball at height of patella against plinth. 2x10 seconds, 2x15 seconds (cues for form) 5: R SLS 5# KB passes 3x5 (difficulty maintaining upright trunk) 6: 1.5 Rep Squats: 2x10. (Half Squats - ascend back up - down to a full squat to chair.) 7: Hoist Pallof Press: 2x[address], 2Plates/2Rounds. 8: Stir the Pot at Hoist 2plates, plus 2 round 1x10 CW and CCW facing each direction 9: Stationary bike at end of session for cool down x 5 minutes Skilled Intervention: Patient was educated in proper exercise technique and purpose for exercises. Skilled judgment was used in selection of appropriate interventions. Correct performance of therapeutic exercises was facilitated with verbal and visual cuing. Billing Therapeutic Exercise Treatment Minutes: 53 Skilled Treatment Time Minutes (timed and untimed codes): 53 Total Session Time (minutes): 53 Session Start Time : 1752 Session Stop Time : 1845 Sidra Yates, GODWIN Wisdom, PT, DPT. [facility] 05-11-2023 History of Present illness Narrative Episode Visit Count: 7 Therapist That Will Accept/Oversee The Plan Of Care: Tomasz Wisdom PT. Start of Care Date: 01/26/23 Onset Date: 01/24/23 Patient Identified by Name and Date of : Yes REHABILITATION AND SPORTS THERAPY PHYSICAL THERAPY TREATMENT NOTE ASSESSMENT: Gregory Barrera tolerated the session with fatigue and expected muscle soreness. He demonstrated difficulty with compensation of lateral trunk lean with R SLS. The patient will continue to benefit from ongoing skilled physical therapy to progress toward set goals. PLAN FOR NEXT VISIT: Continue LE strengthening, add more core strength. SUBJECTIVE: Pt returned to work this week and states that his knee is swelling due to being on his feet all day. Pt's knee is now back to being sensitive to touch. Pt requests to do some stretching in session due to swelling of his knee. Pain: Pain Pain Level: 3 Pain Location: Knee - Right Description: Tightness (due to swelling) Post Treatment Pain Post Treatment Pain Location: Knee - Right OBJECTIVE MEASURES WITH LEVEL OF FUNCTION: RLE easily fatigued with single leg standing exercises. TREATMENT: Therapeutic Exercise: 1: Stationary Upright Bike Full-Revolutions, Seat Height 5: 6.5 Minutes, level 3.0. (Direct 1:1 throughout, subjective taken.) 2: Prone quad stretch 3x30 seconds 3: Supine hip flexor / quad stretch 3x30 seconds RLE 4: Standing hip stabilization with R SLS with physioball at height of patella against plinth. 2x10 seconds, 2x15 seconds (cues for form) 5: R SLS 5# KB passes 3x5 (difficulty maintaining upright trunk) 6: 1.5 Rep Squats: 2x10. (Half Squats - ascend back up - down to a full squat to chair.) 7: Hoist Pallof Press: 2x[address], 2Plates/2Rounds. 8: Stir the Pot at Hoist 2plates, plus 2 round 1x10 CW and CCW facing each direction 9: Stationary bike at end of session for cool down x 5 minutes Skilled Intervention: Patient was educated in proper exercise technique and purpose for exercises. Skilled judgment was used in selection of appropriate interventions. Correct performance of therapeutic exercises was facilitated with verbal and visual cuing. Billing Therapeutic Exercise Treatment Minutes: 53 Skilled Treatment Time Minutes (timed and untimed codes): 53 Total Session Time (minutes): 53 Session Start Time : 175 Session Stop Time : 1845 Sidra Yates, GODWIN Wisdom PT, DPT. documented in this encounter [facility] [place] 05-06-2023 Note HNO ID: [id number] Author: TOMASZ WISDOM PT Service: ? Author Type: Physical Therapist Type: Progress Notes Filed: 05/06/2023 09:58 Note Text: Episode Visit Count: 6 Therapist That Will Accept/Oversee The Plan Of Care: Tomasz Wisdom PT. Start of Care Date: 01/26/23 Onset Date: 01/24/23 Patient Identified by Name and Date of : Yes REHABILITATION AND SPORTS THERAPY PHYSICAL THERAPY TREATMENT NOTE ASSESSMENT: Gregory Barrera tolerated the session with fatigue and expected muscle soreness. He demonstrated improvements in SL control during Hip 4-Way on airex. The patient will continue to benefit from ongoing skilled physical therapy to progress toward set goals. PLAN FOR NEXT VISIT: Continue LE strengthening, trial SL stance KB passes; add more core strength. SUBJECTIVE: Patient states two days of soreness following last session; was more yesterday than Tuesday; arrives with some soreness today but better overall. Pain: Pain Pain Level: 4 Pain Location: Knee - Right Description: Sore Post Treatment Pain Post Treatment Pain Location: Knee - Right Post Treatment Pain Description: Sore OBJECTIVE MEASURES WITH LEVEL OF FUNCTION: Good form demonstrated throughout session. Fatigued with Pallof Press and Deficit Calf Raises. TREATMENT: Therapeutic Exercise: 1: Stationary Upright Bike Full-Revolutions, Seat Height 5: 6.5 Minutes, level 3.0. (Direct 1:1 throughout, subjective taken.) 2: R Prostretch: 3x30 . 3: Dynamic HS Stretch w/ Toes on Elevated Slant: 2x15, 5-sec hold. 4: Hip 4-way on Airex: 2x10 each leg. 5: Hoist Pallof Press: 1x[address], 2Plates/2Rounds. 6: 1.5 Rep Squats: 2x10. (Half Squats - ascend back up - down to a full squat to chair.) 7: DBL Deficit Calf Raise off 4in box: 2x20. Skilled Intervention: Patient was educated in proper exercise technique and purpose for exercises. Reviewed and educated patient on additions/changes for home exercise program as above (*). Skilled judgment was used in selection of appropriate interventions. Provided written instruction for home exercise program to facilitate proper performance and compliance. Correct performance of therapeutic exercises was facilitated with verbal, visual, and tactile cuing. Billing Therapeutic Exercise Treatment Minutes: 40 Skilled Treatment Time Minutes (timed and untimed codes): 40 Total Session Time (minutes): 40 Session Start Time : 916 Session Stop Time : 956 Tomasz Wisdom PT [facility] 05-03-2023 Note HNO ID: [id number] Author: TOMASZ WISDOM PT Service: ? Author Type: Physical Therapist Type: Progress Notes Filed: 05/03/2023 10:13 Note Text: Episode Visit Count: 5 Therapist That Will Accept/Oversee The Plan Of Care: Tomasz Wisdom PT. Start of Care Date: 01/26/23 Onset Date: 01/24/23 Patient Identified by Name and Date of : Yes REHABILITATION AND SPORTS THERAPY PHYSICAL THERAPY TREATMENT NOTE ASSESSMENT: Gregory Barrera tolerated the session with fatigue and expected muscle soreness. He demonstrated difficulty with fatigue from lateral walkouts and reduced tightness in the R Calf. The patient will continue to benefit from ongoing skilled physical therapy to progress toward set goals and to continue with post-operative protocol. PLAN FOR NEXT VISIT: Progress LE ther-ex; add core strengthening. SUBJECTIVE: Patient reports best he felt after in awhile after last session . 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 Pain: Pain Pain Level: 1 Pain Location: Knee - Right Description: Sore Post Treatment Pain Post Treatment Pain Location: Knee - Right Post Treatment Pain Description: Sore Post Treatment Symptoms: Legs Fatigued. OBJECTIVE MEASURES WITH LEVEL OF FUNCTION: Difficulty with L Lateral Lunge on Slideboard compared to R. TREATMENT: Therapeutic Exercise: 1: Stationary Upright Bike Full-Revolutions, Seat Height 5: 7 Minutes, level 3.0. (Direct 1:1 throughout, subjective taken.) 2: R Prostretch: 3x30 . 3: 2-1 R Ankle Deficit Calf Raise Eccentrics: 2x15, 3-5sec decline. 4: DBL Leg Press 80#: 3x15. 5: SL Leg Press: 2x15, 50#. 6: Hip 4-way on Airex: 1x10 each leg. 7: Stool pulls: 2x30 ft. with RLE 8: DBL Leg Hip Thrust off table: 2x10. 9: Slide Board Lateral Lunge w/ Pullback: 2x[address] e[address]. 10: Lateral Walking from Hoist: 1x10, each way. Skilled Intervention: Patient was educated in proper exercise technique and purpose for exercises. Skilled judgment was used in selection of appropriate interventions. Correct performance of therapeutic exercises was facilitated with verbal, visual, and tactile cuing. Manual Therapy: 1: IaSTM to R Distal Quads, and Calf: Push to tolerance. Skilled Intervention: Manual skills to improve joint mobility, ROM, and decrease pain. Utilized anatomy knowledge of the therapist, and assessment of patient's response to intervention. Billing Therapeutic Exercise Treatment Minutes: 47 Manual TherapyTreatment Minutes: 10 Skilled Treatment Time Minutes (timed and untimed codes): 57 Total Session Time (minutes): 57 Session Start Time : 856 Session Stop Time : 09 Tomasz Wisdom PT [facility] 04-29-2023 Note HNO ID: [id number] Author: TOMASZ WISDOM PT Service: ? Author Type: Physical Therapist Type: Progress Notes Filed: 04/29/2023 10:53 Note Text: Episode Visit Count: 4 Therapist That Will Accept/Oversee The Plan Of Care: Tomasz Wisdom PT. Start of Care Date: 01/26/23 Onset Date: 01/24/23 Patient Identified by Name and Date of : Yes REHABILITATION AND SPORTS THERAPY PHYSICAL THERAPY TREATMENT NOTE ASSESSMENT: Gregory Barrera tolerated the session with expected muscle soreness. He demonstrated difficulty with eccentric control of the R Quad. The patient will continue to benefit from ongoing skilled physical therapy to progress toward set goals. PLAN FOR NEXT VISIT: Hip 4-way series on Airex; add core exercises. SUBJECTIVE: Pt. reports he saw Dr. Craig two days ago; surgeon gave steroid taper and NSAID rx; surgeon continues to tell patient to keep working at overall Knee Strength + Motion as tolerated. Goes back to work on the of this month. Pain: Pain Pain Level: 2 Pain Location: Knee - Right Description: Stiffness, Sore Post Treatment Pain Post Treatment Pain Location: Knee - Right Post Treatment Pain Description: Sore Post Treatment Symptoms: B LE Fatigue OBJECTIVE MEASURES WITH LEVEL OF FUNCTION: Decreased SL R Quad control during descend of SL leg press. TREATMENT: Therapeutic Exercise: 1: Stationary Upright Bike Full-Revolutions, Seat Height 5: 6.5 Minutes, level 3.0. (Direct 1:1 throughout, subjective taken.) 2: R FWD Stepup w/ TKE: 2x15, BTB. 3: R Curtsy Step-Down from 10-inch box: 2x15. 4: 1.5 Rep Squats: 2x8. (Half Squats - ascend back up - down to a full squat to chair.) 5: DBL Leg Press 80#: 2x15. 6: SL Leg Press: 2x10, 50#. 7: 2-1 RLE Eccentric Lower 5-sec: 2x10, 40#. 8: DBL Leg Hip Thrust off table: 2x10. 9: Slide Board Lateral Lunge w/ Pullback: 2x[address]. 10: *Education on Hip clocks for addition to HEP. Skilled Intervention: Patient was educated in proper exercise technique and purpose for exercises. Reviewed and educated patient on additions/changes for home exercise program as above (*). Skilled judgment was used in selection of appropriate interventions. Provided written instruction for home exercise program to facilitate proper performance and compliance. Correct performance of therapeutic exercises was facilitated with verbal, visual, and tactile cuing. Billing Therapeutic Exercise Treatment Minutes: 55 Skilled Treatment Time Minutes (timed and untimed codes): 55 Total Session Time (minutes): 55 Session Start Time : 954 Session Stop Time : 1050 Tomasz Widsom PT [facility] 04-26-2023 Note HNO ID: [id number] Author: TOMASZ WISDOM PT Service: ? Author Type: Physical Therapist Type: Progress Notes Filed: 04/26/2023 11:06 Note Text: Episode Visit Count: 3 Therapist That Will Accept/Oversee The Plan Of Care: Tomasz Wisdom PT. Start of Care Date: 01/26/23 Onset Date: 01/24/23 Patient Identified by Name and Date of : Yes REHABILITATION AND SPORTS THERAPY PHYSICAL THERAPY TREATMENT NOTE ASSESSMENT: Gregory Barrera tolerated the session with fatigue and expected muscle soreness. He demonstrated improvements in R knee flexion AAROM. The patient will continue to benefit from ongoing skilled physical therapy to progress toward set goals. PLAN FOR NEXT VISIT: Assess response to leg press and consider single leg. SUBJECTIVE: Pt reports that his knee is stiff today. Pt states soreness after last session. Pt states only being able to stand for 5 minutes before his knee gets really tight and uncomfortable. Pain: Pain Pain Level: 2 Pain Location: Knee - Right Description: Stiffness Post Treatment Pain Post Treatment Pain Location: Knee - Right Post Treatment Symptoms: fatigue OBJECTIVE MEASURES WITH LEVEL OF FUNCTION: LE AROM R Knee Extension: 0 Degrees R Knee Flexion: 121 Degrees (AAROM in supine with strap assist) TREATMENT: Therapeutic Exercise: 1: Stationary Upright Bike Full-Revolutions, Seat Height 5: 6.5 Minutes, level 3.0. (Seated lowered for Knee Motion; Direct 1:1 throughout, subjective taken.) 2: heel slides with strap 2x10 3: Quad sets 1x5 4: Step downs on 4 inch step 1x10 RLE, on 6 inch step 1x15 5: Step ups on 10 inch step 2x15 RLE 6: Standing hip abduction 2x15 B 7: Standing hip extension 2x10 B Skilled Intervention: Patient was educated in proper exercise technique and purpose for exercises. Skilled judgment was used in selection of appropriate interventions. Correct performance of therapeutic exercises was facilitated with verbal and visual cuing. Billing Therapeutic Exercise Treatment Minutes: 40 Skilled Treatment Time Minutes (timed and untimed codes): 40 Total Session Time (minutes): 40 Session Start Time : 929 Session Stop Time : 1010 Sidra YatesGODWIN, PT, DPT. [facility] 04-22-2023 Note HNO ID: [id number] Author: TOMASZ WISDOM PT Service: ? Author Type: Physical Therapist Type: Progress Notes Filed: 04/22/2023 15:32 Note Text: Episode Visit Count: 2 Therapist That Will Accept/Oversee The Plan Of Care: Tomasz Wisdom PT. Start of Care Date: 01/26/23 Onset Date: 01/24/23 Patient Identified by Name and Date of : Yes REHABILITATION AND SPORTS THERAPY PHYSICAL THERAPY TREATMENT NOTE ASSESSMENT: Gregory Barrera tolerated the session with fatigue and expected muscle soreness. He demonstrated difficulty with standing on RLE to perform exercises on LLE. The patient will continue to benefit from ongoing skilled physical therapy to progress toward set goals. PLAN FOR NEXT VISIT: Take measurements for follow up. Continue with strengthening and stabilization of R knee. SUBJECTIVE: Pt reports that a few days ago he knelt down on his R knee for a brief period and now his knee is really hurting. Pt states that he stood for 25 minutes and his knee and hips really hurt. Pain: Pain Pain Level: 4 Pain Location: Knee - Right Description: Stiffness Post Treatment Pain Post Treatment Pain Level: No Change Post Treatment Pain Location: Knee - Right OBJECTIVE MEASURES WITH LEVEL OF FUNCTION: Increased swelling of R knee with exercise TREATMENT: Therapeutic Exercise: 1: Stationary Upright Bike Full-Revolutions, Seat Height 5: 6.5 Minutes, level 3.0. (Seated lowered for Knee Motion; Direct 1:1 throughout, subjective taken.) 2: Wall squats 2x10 3: Lunges on FERNANDEZ 2x10 B 4: *Standing hip abduction 2x15 B (for increased stability in R knee) 5: *Standing hip extension 2x10 B (for increased stability in R knee) 6: *Standing HS curls 7: Stool pulls x 30 ft. with RLE Skilled Intervention: Patient was educated in proper exercise technique and purpose for exercises. Reviewed and educated patient on additions/changes for home exercise program as above (*). Skilled judgment was used in selection of appropriate interventions. Provided written instruction for home exercise program to facilitate proper performance and compliance. Correct performance of therapeutic exercises was facilitated with verbal and visual cuing. Billing Therapeutic Exercise Treatment Minutes: 43 Skilled Treatment Time Minutes (timed and untimed codes): 43 Total Session Time (minutes): 43 Session Start Time : 1354 Session Stop Time : 1437 Sidra Yates, GODWIN Tomasz Wisdom, PT, DPT. [facility] 04-13-2023 Note HNO ID: [id number] Author: TOMASZ WISDOM PT Service: ? Author Type: Physical Therapist Type: Progress Notes Filed: 04/22/2023 15:30 Note Text: Episode Visit Count: 1 Therapist That Will Accept/Oversee The Plan Of Care: Tomasz Wisdom PT. Start of Care Date: 01/26/23 Onset Date: 01/24/23 Patient Identified by Name and Date of : Yes REHABILITATION AND SPORTS THERAPY PHYSICAL THERAPY PROGRESS REPORT PLAN OF CARE UPDATE: Assessment: Gregory Barrera demonstrates improvements in R Knee Strength and Stability, continued progression in R Knee Motion, and improvements in ambulation ability without assistive device. He has progressed toward goals. Patient continues to present with impairments in ADL's, gait, joint mobility, overall function, range of motion, strength, and knee stiffness that interfere with walking in the community, physical activities (Descending Stairs; Knee Flexion Mobility; antalgic gait.) .Current prognosis is Good due to: current objective clinical presentation, positive past response to therapy, within-session changes, good support system/ coping skills .He will benefit from continued skilled therapy services to meet the updated goals for this plan of care as noted below. Goals for Episode of Care: Updated on 02/18/23 AND 04/13/23. Goals for Episode of Care: created on 01/26/23 through 06/08/23/ [place] in home exercise program (MET) 2.Patient will decrease pain rating by 2 points to meet minimal clinical important difference for numeric pain rating scale. (Progressing Towards) Patient will increase active ROM of R knee to 0-135 degrees to allow the patient to improve walking in the community, stair navigation as well as performance of occupation demands. (Progressing Towards, ranges 1116-120 past couple of visits) Patient will demonstrate increase in RLE strength to 5/5 during manual muscle testing in order to improve function for home management tasks, leisure/recreation skills, light to heavy functional tasks, job demands and prior functional tasks. (Progressing Towards) Normal gait without use of an assistive device (Progressing Towards) Reciprocal stair negotiation. (Progressing Towards) Patient will report no pain/symptoms with walking. (Progressing Towards) Patient Goals: Improve motion and strength, decrease pain and return to PLOF. Be able to begin exercising. Planned Interventions, Frequency, and Duration: 1x/week, 10 weeks Total Number of Visits Planned: 10 Patient to be seen for Therapeutic exercise ([id number]), Neuromuscular re-education (52659), Manual therapy (35286), Therapeutic activities (51704), Self-assisted management (98391), Gait Training (17970), Patient/Family/Caregiver Education, Body Mechanics Training, Functional training PLAN FOR NEXT VISIT: Assess how Dr. Craig follow-up went with patient; Knee flexion increases; return to strengthening exercises (wall sits, begin lunge progressions). SUBJECTIVE: Patient sees Dr. Craig tomorrow for procedure follow-up; states continued R Knee Stiffness consistently. Functional Limitations: walking in the community, physical activities (Descending Stairs; Knee Flexion Mobility; antalgic gait.) Pain: Pain Pain Level: 2 Pain Location: Knee - Right Description: Stiffness Post Treatment Pain Post Treatment Pain Level: No Change Post Treatment Pain Location: Knee - Right Post Treatment Pain Description: Sore PROMIS Scales Higher is Better 04/22/2023 03/22/2023 02/11/2023 Phys Func - Score 40 (mild dysfunction) 44 (mild dysfunction) 38 (moderate dysfunction) Phys Func - Percentile 16% 27% 12% Self-Eff Symptom - Score 39 (Low) 48 (Average) 43 (Average) Self-Eff Symptom - Percentile 14% 42% 24% T-scores: mean of general population = 50. 5 points is clinically meaningfully difference Percentiles provide an indication of how the patient's score ranks in relation to the general population. Higher percentile rankings indicate better function/quality of life. 50th percentile is the average of the general population and indicates half of respondents had a worse score. OBJECTIVE MEASURES WITH LEVEL OF FUNCTION: LE AROM R Knee Extension: -1 Degrees R Knee Flexion: 119 Degrees (Wall Slides) LE PROM R Knee Extension: 0 Degrees R Knee Flexion: 121 Degrees LE Strength Lower Extremity Dynamometer Testing : Yes Dynamometer Strength Right Quadriceps Strength (lbs): 34.9 Left Quadriceps Strength (lbs): 39.1 Quad Strength Limb Symmetry Index (%): 89.26 Right Hamstring Strength (lbs): 30.2 Left Hamstring Strength (lbs): 35.1 Hamstring Strength Limb Symmetry Index(%): 86.04 TREATMENT: Therapeutic Exercise: 1: Stationary Upright Bike Full-Revolutions, Seat Height 5: 6.5 Minutes, level 3.0. (Seated lowered for Knee Motion; Direct 1:1 throughout, subjective taken.) 2: R Wall Flexion Slides: 3x12, 1-2 hold. 3: R ProStretch: 3x30 . 4: *Progress Check AND (more content not included)... [facility] 04-08-2023 Note HNO ID: [id number] Author: Tomasz Wisdom PT Service: ? Author Type: Physical Therapist Type: Progress Notes Filed: 04/08/2023 11:04 AM Note Text: Episode Visit Count: 21 Therapist That Will Accept/Oversee The Plan Of Care: Tomasz Wisdom PT. Start of Care Date: 01/26/23 Onset Date: 01/24/23 Patient Identified by Name and Date of : Yes REHABILITATION AND SPORTS THERAPY PHYSICAL THERAPY TREATMENT NOTE ASSESSMENT: Gregory Barrera tolerated the session with expected muscle soreness. He demonstrated difficulty with progressing past measured Knee Flexion ROM due to subjective tightness behind the knee cap. The patient will continue to benefit from ongoing skilled physical therapy to progress toward set goals and to continue with post-operative protocol. PLAN FOR NEXT VISIT: Continue R Knee Flexion Motion Increases; Wall Sits, Lunging. SUBJECTIVE: Pt. reports light stiffness today; had to cancel Surgeons follow-up appt on the due to dealing with sickness; rescheduled for next week. Pain: Pain Pain Level: 1 Pain Location: Knee - Right Description: Stiffness Post Treatment Pain Post Treatment Pain Level: No Change Post Treatment Pain Location: Knee - Right Post Treatment Pain Description: Sore OBJECTIVE MEASURES WITH LEVEL OF FUNCTION: Tenderness at distal quad musculature. LE AROM R Knee Flexion: 117 Degrees LE PROM R Knee Flexion: 119 Degrees TREATMENT: Therapeutic Exercise: 1: Stationary Upright Bike Full-Revolutions, Seat Height 7: 7.5 Minutes, level 3.0. (Seated lowered for Knee Motion; Direct 1:1 throughout, subjective taken.) 2: Prone R HS Curls: 2x10 3: Seated R Knee Flexion w/ LLE assist AAROM: 2x10, 3-5 sec hold. 4: R Heel Slides AAROM w/ Strap: 2x15, 1-3 hold. Skilled Intervention: Patient was educated in proper exercise technique and purpose for exercises. Skilled judgment was used in selection of appropriate interventions. Correct performance of therapeutic exercises was facilitated with verbal, visual, and tactile cuing. Manual Therapy: 1: R Knee Flexion PROM with patient in semi-reclined position w/ PTs arm laced through legs as a lever: 3x10. 2: Prone R Knee Flexion PROM w/ PT Overpressure at end-feel x20. 3: STM w/ Lacrosse Ball to R distal quads and w/ foam roller to R Hamstring. 4: Manual R knee extension w/ tibial external rotation OP: x15. 5: R Patella Med-Lat Mobs: x20. Skilled Intervention: Manual skills to improve joint mobility, ROM, and decrease pain. Utilized anatomy knowledge of the therapist, and assessment of patient's response to intervention. Billing Therapeutic Exercise Treatment Minutes: 15 Manual TherapyTreatment Minutes: 25 Skilled Treatment Time Minutes (timed and untimed codes): 40 Total Session Time (minutes): 40 Session Start Time : 0955 Session Stop Time : 1035 Tomasz Wisdom, PT [facility] 04-05-2023 Note HNO ID: [id number] Author: Aime Jansen MD Service: ? Author Type: Physician Type: Progress Notes Filed: 04/05/2023 9:28 AM Note Text: Patient presents with: Cough: Cough, congestion, KRUGER and diarrhea x 2 days HPI: Feeling sick for 3 days. Positive symptoms: Cough, Headache, sinusitis, Diarrhea, bloated, fever, wheezing, fatigue, vertigo the last week Negative symptoms: Shortness of breath, Sore throat, Vomiting, rhinorrhea OTC: Tylenol PAST MEDICAL HISTORY Diagnosis Date Acute gastritis Coronary artery disease Hyperlipidemia Hypertension ANÍBAL (obstructive sleep apnea) [facility] in [place] Osteoarthritis of multiple joints Rheumatoid arthritis(714.0) pt states he was misdiagnosed- he has osteoarthritis MEDICATIONS: Current Outpatient Medications Medication Sig atorvastatin (LIPITOR) 80 mg tablet TAKE ONE TABLET BY MOUTH EVERY NIGHT AT BEDTIME losartan (COZAAR) 50 mg tablet TAKE ONE TABLET BY MOUTH DAILY isosorbide mononitrate ER (IMDUR) 30 mg 24 hr tablet TAKE ONE TABLET BY MOUTH DAILY carvedilol (COREG) 3.125 mg tablet TAKE ONE TABLET BY MOUTH TWICE DAILY WITH MEALS. buPROPion XL (WELLBUTRIN XL) 300 mg 24 hr tablet Take 1 tablet by mouth once daily. omeprazole (PRILOSEC) 20 mg capsule Take 1 capsule by mouth once daily. CPAP NEW SET UP: Settings 7 - 15 cm H2O, suitable mask per pt preference, chin strap, head gear, humidity, tubing, lifetime supplies. G47.33 ANÍBAL aspirin 81 mg chewable tablet Take 1 tablet by mouth once daily. albuterol HFA (PROVENTIL HFA) 90 mcg/actuation inhaler Inhale 2 Puffs as instructed every 4 hours as needed for wheezing/shortness of breath. (Patient not taking: Reported on 12/30/2022) No current facility-administered medications for this visit. ALLERGIES: ALLERGIES Allergen Reactions Ampicillin hives Lisinopril Cough Seasonal Allergies Cough Patient takes Zyrtec as needed. VITALS: BP 128/84 Pulse 89 Temp 37.1 ?C (98.8 ?F) (Tympanic) Resp 16 Wt 112.9 kg (249 lb) SpO2 96% BMI 39.59 kg/m? PHYSICAL EXAM: GEN: mildly ill appearing HEENT: PERRL, EOMI, conjunctiva lightly injected Ears: canals clear. TMs without erythema, bulge, or effusion. Dull left TM. Sinuses: pressure over sinuses Throat: moist mucous membranes, mild erythema, no exudate Neck: supple, no thyromegaly, no lymphadenopathy HEART: regular rate and rhythm, no murmurs LUNGS: clear to auscultation, no wheezes or crackles, no increased WOB EXT: RAVEN wrap on left wrist after CTS procedure. ASSESSMENT/PLAN: 1. Acute cough - ICD9: 786.2, ICD10: R05.1 (primary diagnosis) 2. Wheezing - ICD9: 786.07, ICD10: R06.2 - suspect viral URI, differential includes COVID-19 and influenza. - Discussed supportive care treatment with home isolation, rest, hydration, cold medicine, and analgesia. Advise canceling physical therapy and orthopedic follow-up tomorrow because of fever today. - Red flags to seek further treatment include chest pain, shortness of breath, and lethargy; in the ER if severe. - COVID AND INFLUENZA A/B NAAT, ROUTINE Refill - ALBUTEROL SULFATE HFA 90 MCG/ACTUATION AEROSOL INHALER Aime Jansen MD [facility] 04-01-2023 Note HNO ID: [id number] Author: Tomasz Wisdom, CESIA Service: ? Author Type: Physical Therapist Type: Progress Notes Filed: 04/01/2023 1:53 PM Note Text: Episode Visit Count: 20 Therapist That Will Accept/Oversee The Plan Of Care: Tomasz Wisdom PT. Start of Care Date: 01/26/23 Onset Date: 01/24/23 Patient Identified by Name and Date of : Yes REHABILITATION AND SPORTS THERAPY PHYSICAL THERAPY TREATMENT NOTE ASSESSMENT: Gregory Barrera tolerated the session with expected muscle soreness. He demonstrated challenged with R Knee Flexion motion ranging between 116-119 actively. Patient with no issues and tolerance to added Knee Flexion exercises. The patient will continue to benefit from ongoing skilled physical therapy to progress toward set goals and to continue with post-operative protocol. PLAN FOR NEXT VISIT: Continue R Knee Flexion Motion Increases; Wall Sits, Lunging. SUBJECTIVE: Patient reports slight stiffness today; felt good following last session; just got his upright stationary at home. Pain: Pain Pain Level: 2 Pain Location: Knee - Right Description: Stiffness Post Treatment Pain Post Treatment Pain Location: Knee - Right Post Treatment Pain Description: Sore OBJECTIVE MEASURES WITH LEVEL OF FUNCTION: LE AROM R Knee Flexion: 119 Degrees (w/ Strap Prone Knee Flexion AAROM.) LE PROM R Knee Flexion: 120 Degrees TREATMENT: Therapeutic Exercise: 1: Stationary Upright Bike Full-Revolutions, Seat Height 7: 7.5 Minutes, level 3.0. (Seated lowered for Knee Motion; Direct 1:1 throughout, subjective taken.) 2: Tibial IR w/ R Knee Flexion on Chair: 2x10. 3: Gapping Knee Flexion from Tall Kneeling: (Mobility Band Behind Knee: 2x10, 3-5 hold.) 4: R Knee Flexion Couch Stretch: 3x30 . 5: *Body Weight on R Knee Flexion PROM from table: 2x10, 5-10 Hold. Skilled Intervention: Patient was educated in proper exercise technique and purpose for exercises. Reviewed and educated patient on additions/changes for home exercise program as above (*). Skilled judgment was used in selection of appropriate interventions. Provided written instruction for home exercise program to facilitate proper performance and compliance. Correct performance of therapeutic exercises was facilitated with verbal, visual, and tactile cuing. Billing Therapeutic Exercise Treatment Minutes: 45 Skilled Treatment Time Minutes (timed and untimed codes): 45 Total Session Time (minutes): 45 Session Start Time : 1300 Session Stop Time : 1345 Tomasz Wisdom PT [facility] 03-29-2023 Note HNO ID: [id number] Author: Tomasz Wisdom PT Service: ? Author Type: Physical Therapist Type: Progress Notes Filed: 03/29/2023 3:43 PM Note Text: Episode Visit Count: 19 Therapist That Will Accept/Oversee The Plan Of Care: Tomasz Wisdom PT. Start of Care Date: 01/26/23 Onset Date: 01/24/23 Patient Identified by Name and Date of : Yes REHABILITATION AND SPORTS THERAPY PHYSICAL THERAPY TREATMENT NOTE ASSESSMENT: Gregory Barrera tolerated the session with expected muscle soreness. He demonstrated improvements in R Knee Flexion motion - was able to achieve a consistent 118-120 w/ AAROM AND PROM. The patient will continue to benefit from ongoing skilled physical therapy to progress toward set goals and to continue with post-operative protocol. PLAN FOR NEXT VISIT: Progress Knee Flexion Motion Interventions as Tolerable; Wall Sits, Lunging. SUBJECTIVE: Patient reports continued stiffness in the Knee; states he felt good after last session, feels good for about 2-3 hours and then the R Knee just gets stiff. States it is the same at home when he works it, after a couples hours it feels stiff again. Pain: Pain Pain Level: 2 Pain Location: Knee - Right Description: Stiffness Post Treatment Pain Post Treatment Pain Location: Knee - Right Post Treatment Pain Description: Sore OBJECTIVE MEASURES WITH LEVEL OF FUNCTION: LE AROM R Knee Flexion: 119 Degrees (w/ Strap Prone Knee Flexion AAROM.) LE PROM R Knee Flexion: 121 Degrees TREATMENT: Therapeutic Exercise: 1: Stationary Upright Bike Full-Revolutions, Seat Height 8: 6 Minutes, level 3.0. (Direct 1:1 throughout, subjective taken.) 2: Prone R Knee Bends w/ Strap Assist: 2x15, 1-2 hold. 3: TRX Squat Holds: 1x10, 15-sec hold. 4: TRX Squats:2x10. 5: Prostretch Gastroc: 3x30 . 6: Heels Elevated Squat Iso Holds: 2x30 . Skilled Intervention: Patient was educated in proper exercise technique and purpose for exercises. Skilled judgment was used in selection of appropriate interventions. Correct performance of therapeutic exercises was facilitated with verbal, visual, and tactile cuing. Manual Therapy: 1: R Knee Flexion PROM with patient in semi-reclined position w/ PTs arm laced through legs as a lever: 2x10. 2: Prone R Knee PROM w/ Tibial IR: x15. 3: Prone R AAROM w/ Strap + PT Overpressure x10. 4: Manual R knee flexion PROM overpressure in [id number]. Skilled Intervention: Manual skills to improve joint mobility, ROM, and decrease pain. Utilized anatomy knowledge of the therapist, and assessment of patient's response to intervention. Billing Therapeutic Exercise Treatment Minutes: 38 Manual TherapyTreatment Minutes: 15 Skilled Treatment Time Minutes (timed and untimed codes): 53 Total Session Time (minutes): 53 Session Start Time : 1445 Session Stop Time : 1538 Tomasz Wisdom PT [facility] 03-25-2023 Note HNO ID: [id number] Author: Tomasz Wisdom PT Service: ? Author Type: Physical Therapist Type: Progress Notes Filed: 03/25/2023 2:54 PM Note Text: Episode Visit Count: 18 Therapist That Will Accept/Oversee The Plan Of Care: Tomasz Wisdom PT. Start of Care Date: 01/26/23 Onset Date: 01/24/23 Patient Identified by Name and Date of : Yes REHABILITATION AND SPORTS THERAPY PHYSICAL THERAPY TREATMENT NOTE ASSESSMENT: Gregory Barrera tolerated the session with expected muscle soreness. He demonstrated difficulty with R Knee Flexion Motion compared to last visit. The patient will continue to benefit from ongoing skilled physical therapy to progress toward set goals and to continue with post-operative protocol. PLAN FOR NEXT VISIT: Progress Knee Flexion Motion Interventions as Tolerable; Wall Sits; Squat Heel Elevated Iso Holds. SUBJECTIVE: Patient reports good session last visit; notes completing the new interventions recently to assist with Knee Flexion gains. Pain: Pain Pain Level: 3 Pain Location: Knee - Right Description: Stiffness Post Treatment Pain Post Treatment Pain Location: Knee - Right Post Treatment Pain Description: Sore OBJECTIVE MEASURES WITH LEVEL OF FUNCTION: Localized Twitch Response appreciated with DN of R Quads. LE AROM R Knee Flexion: 114 Degrees (Wall Slides) TREATMENT: Therapeutic Exercise: 1: Stationary Upright Bike Full-Revolutions, Seat Height 8: 6 Minutes, level 3.0. (Direct 1:1 throughout, subjective taken.) 2: R Wall Flexion Slides: 3x15, 1-2 hold. 3: Prone R Knee Bends w/ Strap Assist: 2x15, 1-2 hold. 4: Quadruped Rock Backs: 2x10, 2-3 hold. 5: R Side Lunge Knee Flexion Mobilization: 2x10, 1-2 hold. 6: Prostretch Gastroc: 2x30 . 7: TRX Squat Holds: 1x10, 10-sec hold. Skilled Intervention: Patient was educated in proper exercise technique and purpose for exercises. Skilled judgment was used in selection of appropriate interventions. Correct performance of therapeutic exercises was facilitated with verbal, visual, and tactile cuing. Manual Therapy: 1: R Knee Flexion PROM with patient in semi-reclined position w/ PTs arm laced through legs as a lever: 2x10. Dry Needling: (1) 50 mm needles to R Vatus Intermedius with pistoning and fanning; (1) 50 mm needle R Vatus Lateralis with pistoning and fanning (pt consent gained, 2 needles in, 2 needles out) Skilled Intervention: Manual skills to improve joint mobility, ROM, and decrease pain. Utilized anatomy knowledge of the therapist, and assessment of patient's response to intervention. Billing Therapeutic Exercise Treatment Minutes: 42 Manual TherapyTreatment Minutes: 12 Skilled Treatment Time Minutes (timed and untimed codes): 54 Total Session Time (minutes): 54 Session Start Time : 1347 Session Stop Time : 1441 Tomasz Wisdom, PT [facility] 03-25-2023 History of Present illness Narrative Episode Visit Count: 18 Therapist That Will Accept/Oversee The Plan Of Care: Tomasz Wisdom PT. Start of Care Date: 01/26/23 Onset Date: 01/24/23 Patient Identified by Name and Date of : Yes REHABILITATION AND SPORTS THERAPY PHYSICAL THERAPY TREATMENT NOTE ASSESSMENT: Gregory Barrera tolerated the session with expected muscle soreness. He demonstrated difficulty with R Knee Flexion Motion compared to last visit. The patient will continue to benefit from ongoing skilled physical therapy to progress toward set goals and to continue with post-operative protocol. PLAN FOR NEXT VISIT: Progress Knee Flexion Motion Interventions as Tolerable; Wall Sits; Squat Heel Elevated Iso Holds. SUBJECTIVE: Patient reports good session last visit; notes completing the new interventions recently to assist with Knee Flexion gains. Pain: Pain Pain Level: 3 Pain Location: Knee - Right Description: Stiffness Post Treatment Pain Post Treatment Pain Location: Knee - Right Post Treatment Pain Description: Sore OBJECTIVE MEASURES WITH LEVEL OF FUNCTION: Localized Twitch Response appreciated with DN of R Quads. LE AROM R Knee Flexion: 114 Degrees (Wall Slides) TREATMENT: Therapeutic Exercise: 1: Stationary Upright Bike Full-Revolutions, Seat Height 8: 6 Minutes, level 3.0. (Direct 1:1 throughout, subjective taken.) 2: R Wall Flexion Slides: 3x15, 1-2 hold. 3: Prone R Knee Bends w/ Strap Assist: 2x15, 1-2 hold. 4: Quadruped Rock Backs: 2x10, 2-3 hold. 5: R Side Lunge Knee Flexion Mobilization: 2x10, 1-2 hold. 6: Prostretch Gastroc: 2x30 . 7: TRX Squat Holds: 1x10, 10-sec hold. Skilled Intervention: Patient was educated in proper exercise technique and purpose for exercises. Skilled judgment was used in selection of appropriate interventions. Correct performance of therapeutic exercises was facilitated with verbal, visual, and tactile cuing. Manual Therapy: 1: R Knee Flexion PROM with patient in semi-reclined position w/ PTs arm laced through legs as a lever: 2x10. Dry Needling: (1) 50 mm needles to R Vatus Intermedius with pistoning and fanning; (1) 50 mm needle R Vatus Lateralis with pistoning and fanning (pt consent gained, 2 needles in, 2 needles out) Skilled Intervention: Manual skills to improve joint mobility, ROM, and decrease pain. Utilized anatomy knowledge of the therapist, and assessment of patient's response to intervention. Billing Therapeutic Exercise Treatment Minutes: 42 Manual TherapyTreatment Minutes: 12 Skilled Treatment Time Minutes (timed and untimed codes): 54 Total Session Time (minutes): 54 Session Start Time : 1347 Session Stop Time : 1441 Tomasz Wisdom, PT documented in this encounter [facility] [place] 03-22-2023 Note HNO ID: [id number] Author: Tomasz Wisdom PT Service: ? Author Type: Physical Therapist Type: Progress Notes Filed: 03/22/2023 10:07 AM Note Text: Episode Visit Count: 17 Therapist That Will Accept/Oversee The Plan Of Care: Tomasz Wisdom PT. Start of Care Date: 01/26/23 Onset Date: 01/24/23 Patient Identified by Name and Date of : Yes REHABILITATION AND SPORTS THERAPY PHYSICAL THERAPY TREATMENT NOTE ASSESSMENT: Gregory Barrera tolerated the session with expected muscle soreness. He demonstrated improvements in R Knee Flexion motion and tolerance to new added flexion interventions. The patient will continue to benefit from ongoing skilled physical therapy to progress toward set goals and to continue with post-operative protocol. PLAN FOR NEXT VISIT: Continue Knee Flexion Motion Routine; Add HeroSquats w/ UE assist. SUBJECTIVE: Pt. reports feeling a little more loose in the R Knee following DN session to Quads; notes slight stiffness this a.m. Follow-up w/ surgeon on 04/06. Pain: Pain Pain Level: 2 Pain Location: Knee - Right Description: Stiffness Post Treatment Pain Post Treatment Pain Location: Knee - Right Post Treatment Symptoms: Less tight, feels good per patient. OBJECTIVE MEASURES WITH LEVEL OF FUNCTION: LE AROM R Knee Flexion: 116 Degrees (Wall Slides.) TREATMENT: Therapeutic Exercise: 1: Stationary Upright Bike Full-Revolutions, Seat Height 10: 6 Minutes. (Direct 1:1 throughout, subjective taken.) 2: R Wall Flexion Slides: 2x15, 1-2 hold. 3: Prone R Knee Bends w/ Strap Assist: 2x10, 1-2 hold. 4: *Quadruped Rock Backs: 2x10, 2-3 hold. 5: R Side Lunge Knee Flexion Mobilization: 2x10, 1-2 hold. 6: TRX Squat Holds: 2x10, 5-sec hold. Skilled Intervention: Patient was educated in proper exercise technique and purpose for exercises. Reviewed and educated patient on additions/changes for home exercise program as above (*). Skilled judgment was used in selection of appropriate interventions. Provided written instruction for home exercise program to facilitate proper performance and compliance. Correct performance of therapeutic exercises was facilitated with verbal, visual, and tactile cuing. Manual Therapy: 1: R Knee Flexion PROM with patient in semi-reclined position w/ PTs arm laced through legs as a lever: 2x10. 2: R Knee A-P Grade III-IV Mobs: x10. Skilled Intervention: Manual skills to improve joint mobility, ROM, and decrease pain. Utilized anatomy knowledge of the therapist, and assessment of patient's response to intervention. Billing Therapeutic Exercise Treatment Minutes: 40 Manual TherapyTreatment Minutes: 6 Skilled Treatment Time Minutes (timed and untimed codes): 46 Total Session Time (minutes): 46 Session Start Time : 725 Session Stop Time : 811 Tomasz Wisdom PT [facility] 03-22-2023 History of Present illness Narrative Program_ID:[id number] Access Code: [email or web address] URL: [email or web address] Date: 03-22-2023 Prepared By: Tomasz Wisdom Program Notes Exercises - Quadruped Rock Back (BKA) - 2 x daily - 7 x weekly - 2 sets - 10 reps Episode Visit Count: 17 Therapist That Will Accept/Oversee The Plan Of Care: Tomasz Wisdom PT. Start of Care Date: 01/26/23 Onset Date: 01/24/23 Patient Identified by Name and Date of : Yes REHABILITATION AND SPORTS THERAPY PHYSICAL THERAPY TREATMENT NOTE ASSESSMENT: Gregory Barrera tolerated the session with expected muscle soreness. He demonstrated improvements in R Knee Flexion motion and tolerance to new added flexion interventions. The patient will continue to benefit from ongoing skilled physical therapy to progress toward set goals and to continue with post-operative protocol. PLAN FOR NEXT VISIT: Continue Knee Flexion Motion Routine; Add HeroSquats w/ UE assist. SUBJECTIVE: Pt. reports feeling a little more loose in the R Knee following DN session to Quads; notes slight stiffness this a.m. Follow-up w/ surgeon on 04/06. Pain: Pain Pain Level: 2 Pain Location: Knee - Right Description: Stiffness Post Treatment Pain Post Treatment Pain Location: Knee - Right Post Treatment Symptoms: Less tight, feels good per patient. OBJECTIVE MEASURES WITH LEVEL OF FUNCTION: LE AROM R Knee Flexion: 116 Degrees (Wall Slides.) TREATMENT: Therapeutic Exercise: 1: Stationary Upright Bike Full-Revolutions, Seat Height 10: 6 Minutes. (Direct 1:1 throughout, subjective taken.) 2: R Wall Flexion Slides: 2x15, 1-2 hold. 3: Prone R Knee Bends w/ Strap Assist: 2x10, 1-2 hold. 4: *Quadruped Rock Backs: 2x10, 2-3 hold. 5: R Side Lunge Knee Flexion Mobilization: 2x10, 1-2 hold. 6: TRX Squat Holds: 2x10, 5-sec hold. Skilled Intervention: Patient was educated in proper exercise technique and purpose for exercises. Reviewed and educated patient on additions/changes for home exercise program as above (*). Skilled judgment was used in selection of appropriate interventions. Provided written instruction for home exercise program to facilitate proper performance and compliance. Correct performance of therapeutic exercises was facilitated with verbal, visual, and tactile cuing. Manual Therapy: 1: R Knee Flexion PROM with patient in semi-reclined position w/ PTs arm laced through legs as a lever: 2x10. 2: R Knee A-P Grade III-IV Mobs: x10. Skilled Intervention: Manual skills to improve joint mobility, ROM, and decrease pain. Utilized anatomy knowledge of the therapist, and assessment of patient's response to intervention. Billing Therapeutic Exercise Treatment Minutes: 40 Manual TherapyTreatment Minutes: 6 Skilled Treatment Time Minutes (timed and untimed codes): 46 Total Session Time (minutes): 46 Session Start Time : 725 Session Stop Time : 811 Tomasz Wisdom PT documented in this encounter [facility] [place] 03-18-2023 Note HNO ID: [id number] Author: Tomasz Wisdom PT Service: ? Author Type: Physical Therapist Type: Progress Notes Filed: 03/18/2023 12:33 PM Note Text: Episode Visit Count: 16 Therapist That Will Accept/Oversee The Plan Of Care: Tomasz Wisdom PT. Start of Care Date: 01/26/23 Onset Date: 01/24/23 Patient Identified by Name and Date of : Yes REHABILITATION AND SPORTS THERAPY PHYSICAL THERAPY TREATMENT NOTE ASSESSMENT: Gregory Barrera tolerated the session with expected muscle soreness. He demonstrated improvements in R Knee Motion and tissue restriction following DN. The patient will continue to benefit from ongoing skilled physical therapy to progress toward set goals and to continue with post-operative protocol. PLAN FOR NEXT VISIT: R Knee flexion PROM/AAROM/AROM; closed chain ther-ex promoting knee flexion SUBJECTIVE: Patient reports increased pain today behind the patella; not as much stiffness more pain; states he has been dealing with increased stiffness lately. Pain: Pain Pain Level: 5 Pain Location: Knee - Right Description: Aching Post Treatment Pain Post Treatment Pain Location: Knee - Right Post Treatment Symptoms: More loose per patient. OBJECTIVE MEASURES WITH LEVEL OF FUNCTION: LE AROM R Knee Flexion: 114 Degrees (Wall Slides AND Strap.) TREATMENT: Therapeutic Exercise: 1: Stationary Upright Bike Full-Revolutions, Seat Height 11: 6 Minutes. (Direct 1:1 throughout, subjective taken.) 2: R Wall Flexion Slides: 3x10, 1-2 hold. 3: R Heel Slides AAROM w/ Strap: 2x15, 1 hold. 4: Prone R Knee Bends w/ Strap Assist: 2x15, 1-2 hold. 5: *HEP Handout Given and discussed: Seated R Knee AROM, Wall Flexion Slides, Gastroc and Soleus Stretch. Skilled Intervention: Patient was educated in proper exercise technique and purpose for exercises. Reviewed and educated patient on additions/changes for home exercise program as above (*). Skilled judgment was used in selection of appropriate interventions. Provided written instruction for home exercise program to facilitate proper performance and compliance. Correct performance of therapeutic exercises was facilitated with verbal, visual, and tactile cuing. Manual Therapy: 1: R Knee Flexion PROM with patient in semi-reclined position w/ PTs arm laced through legs as a lever: 2x10, 5 hold. 2: R Hip FLexor Flexibility Off Table: Push to tolerance. 4x30 . 3: *Patient education on purpose, precautions, safety, and risks regarding dry needling. Dry Needling: (1) 50 mm needles to R Vatus Intermedius with pistoning and fanning; (1) 50 mm needle R Vatus Lateralis with pistoning and fanning (pt consent gained, 2 needles in, 2 needles out) Skilled Intervention: Manual skills to improve joint mobility, ROM, and decrease pain. Utilized anatomy knowledge of the therapist, and assessment of patient's response to intervention. Patient education as noted. Billing Therapeutic Exercise Treatment Minutes: 30 Manual TherapyTreatment Minutes: 25 Skilled Treatment Time Minutes (timed and untimed codes): 55 Total Session Time (minutes): 55 Session Start Time : 1111 Session Stop Time : 1206 Tomasz Wisdom, PT [facility] 03-18-2023 History of Present illness Narrative Program_ID:[id number] Access Code: [email or web address] URL: [email or web address] Date: 03-18-2023 Prepared By: Tomasz Wisdom Program Notes Exercises - Supine Heel Slide with Strap - 2 x daily - 7 x weekly - 2-3 sets - 10-20 reps - Long Sitting Quad Set with Towel Roll Under Heel - 2 x daily - 7 x weekly - 3 sets - 10-20 reps - Supine Short Arc Quad - 2 x daily - 7 x weekly - 3 sets - 10 reps - Seated Long Arc Quad - 2 x daily - 7 x weekly - 2 sets - 6-12 reps - Seated Gluteal Sets - x daily - 7 x weekly - sets - reps - Sit to Stand with Resistance Around Legs - 1-2 x daily - 7 x weekly - 1-2 sets - 10 reps - Standing Heel Raise - 1 x daily - 7 x weekly - 3 sets - 10 reps - Modified Miguel Stretch - 1 x daily - 7 x weekly - 2 sets - 10 reps - Squat with Counter Support - 1 x daily - 7 x weekly - 2 sets - 10 reps - Long Sitting Calf Stretch with Strap - 2 x daily - 7 x weekly - 2-3 sets - reps - Supine Knee Flexion AAROM at Wall - 2 x daily - 7 x weekly - 2 sets - 10 reps - Long Sitting Soleus Stretch on Bolster with Strap - 2 x daily - 7 x weekly - 2-3 sets - reps - Seated Knee Flexion Extension AAROM with Overpressure - 2 x daily - 7 x weekly - 2 sets - 10 reps Program_ID:[id number] Access Code: [email or web address] URL: [email or web address] Date: 03-18-2023 Prepared By: Tomasz Wisdom Program Notes Exercises - Supine Heel Slide with Strap - 2 x daily - 7 x weekly - 2-3 sets - 10-20 reps - Long Sitting Quad Set with Towel Roll Under Heel - 2 x daily - 7 x weekly - 3 sets - 10-20 reps - Supine Short Arc Quad - 2 x daily - 7 x weekly - 3 sets - 10 reps - Seated Long Arc Quad - 2 x daily - 7 x weekly - 2 sets - 6-12 reps - Seated Gluteal Sets - x daily - 7 x weekly - sets - reps - Sit to Stand with Resistance Around Legs - 1-2 x daily - 7 x weekly - 1-2 sets - 10 reps - Standing Heel Raise - 1 x daily - 7 x weekly - 3 sets - 10 reps - Prone Knee Flexion - 1-2 x daily - 7 x weekly - 2 sets - 10 reps - Modified Miguel Stretch - 1 x daily - 7 x weekly - 2 sets - 10 reps - Squat with Counter Support - 1 x daily - 7 x weekly - 2 sets - 10 reps - Long Sitting Calf Stretch with Strap - 2 x daily - 7 x weekly - 2-3 sets - reps - Supine Knee Flexion AAROM at Wall - 2 x daily - 7 x weekly - 2 sets - 10 reps - Long Sitting Soleus Stretch on Bolster with Strap - 2 x daily - 7 x weekly - 2-3 sets - reps - Seated Knee Flexion Extension AAROM with Overpressure - 2 x daily - 7 x weekly - 2 sets - 10 reps Episode Visit Count: 16 Therapist That Will Accept/Oversee The Plan Of Care: Tomasz Wisdom PT. Start of Care Date: 01/26/23 Onset Date: 01/24/23 Patient Identified by Name and Date of : Yes REHABILITATION AND SPORTS THERAPY PHYSICAL THERAPY TREATMENT NOTE ASSESSMENT: Gregory Barrera tolerated the session with expected muscle soreness. He demonstrated improvements in R Knee Motion and tissue restriction following DN. The patient will continue to benefit from ongoing skilled physical therapy to progress toward set goals and to continue with post-operative protocol. PLAN FOR NEXT VISIT: R Knee flexion PROM/AAROM/AROM; closed chain ther-ex promoting knee flexion SUBJECTIVE: Patient reports increased pain today behind the patella; not as much stiffness more pain; states he has been dealing with increased stiffness lately. Pain: Pain Pain Level: 5 Pain Location: Knee - Right Description: Aching Post Treatment Pain Post Treatment Pain Location: Knee - Right Post Treatment Symptoms: More loose per patient. OBJECTIVE MEASURES WITH LEVEL OF FUNCTION: LE AROM R Knee Flexion: 114 Degrees (Wall Slides & Strap.) TREATMENT: Therapeutic Exercise: 1: Stationary Upright Bike Full-Revolutions, Seat Height 11: 6 Minutes. (Direct 1:1 throughout, subjective taken.) 2: R Wall Flexion Slides: 3x10, 1-2 hold. 3: R Heel Slides AAROM w/ Strap: 2x15, 1 hold. 4: Prone R Knee Bends w/ Strap Assist: 2x15, 1-2 hold. 5: *HEP Handout Given and discussed: Seated R Knee AROM, Wall Flexion Slides, Gastroc and Soleus Stretch. Skilled Intervention: Patient was educated in proper exercise technique and purpose for exercises. Reviewed and educated patient on additions/changes for home exercise program as above (*). Skilled judgment was used in selection of appropriate interventions. Provided written instruction for home exercise program to facilitate proper performance and compliance. Correct performance of therapeutic exercises was facilitated with verbal, visual, and tactile cuing. Manual Therapy: 1: R Knee Flexion PROM with patient in semi-reclined position w/ PTs arm laced through legs as a lever: 2x10, 5 hold. 2: R Hip FLexor Flexibility Off Table: Push to tolerance. 4x30 . 3: *Patient education on purpose, precautions, safety, and risks regarding dry needling. Dry Needling: (1) 50 mm needles to R Vatus Intermedius with pistoning and fanning; (1) 50 mm needle R Vatus Lateralis with pistoning and fanning (pt consent gained, 2 needles in, 2 needles out) Skilled Intervention: Manual skills to improve joint mobility, ROM, and decrease pain. Utilized anatomy knowledge of the therapist, and assessment of patient's response to intervention. Patient education as noted. Billing Therapeutic Exercise Treatment Minutes: 30 Manual TherapyTreatment Minutes: 25 Skilled Treatment Time Minutes (timed and untimed codes): 55 Total Session Time (minutes): 55 Session Start Time : 1111 Session Stop Time : 1206 Tomasz Wisdom PT documented in this encounter [facility] [place] 03-15-2023 Note HNO ID: [id number] Author: Tomasz Wisdom PT Service: ? Author Type: Physical Therapist Type: Progress Notes Filed: 03/15/2023 12:16 PM Note Text: Episode Visit Count: 15 Therapist That Will Accept/Oversee The Plan Of Care: Tomasz Wisdom PT. Start of Care Date: 01/26/23 Onset Date: 01/24/23 Patient Identified by Name and Date of : Yes REHABILITATION AND SPORTS THERAPY PHYSICAL THERAPY TREATMENT NOTE ASSESSMENT: Gregory Barrera tolerated the session with fatigue and expected muscle soreness. He demonstrated improvements in R knee flexion AAROM and PROM. The patient will continue to benefit from ongoing skilled physical therapy to progress toward set goals. PLAN FOR NEXT VISIT: Continue with closed chain knee flexion SUBJECTIVE: Pt reports that his L knee is stiff today. Pain: Pain Pain Location: Knee - Right Description: Stiffness Post Treatment Pain Post Treatment Pain Location: Knee - Right Post Treatment Symptoms: At end of session, pt stated I feel like i stretched it, but not painful . OBJECTIVE MEASURES WITH LEVEL OF FUNCTION: LE AROM R Knee Flexion: 110 Degrees (with strap in supine hip flexor stretch) LE PROM R Ankle Dorsiflexion: 114 Degrees TREATMENT: Therapeutic Exercise: 1: Stationary Upright Bike Full-Revolutions, Seat Height 11: 6 Minutes. (Direct 1:1 throughout, subjective taken.) 2: Step stretch 3x30 seconds 3: Stair R Knee Flexion Mobility: 2x10, 2-3 hold. 4: *Supine hip flexor stretch with RLE off edge of table with strap to pull on knee for flexion ROM 5: *Squats at // bars x 5 rounds with 15 second holds 6: R Wall Flexion Slides: 3x12, 1-2 hold. 7: PROM knee flexion at edgeof table x 3 reps Skilled Intervention: Patient was educated in proper exercise technique and purpose for exercises. Reviewed and educated patient on additions/changes for home exercise program as above (*). Skilled judgment was used in selection of appropriate interventions. Provided written instruction for home exercise program to facilitate proper performance and compliance. Correct performance of therapeutic exercises was facilitated with verbal and visual cuing. Billing Therapeutic Exercise Treatment Minutes: 45 Skilled Treatment Time Minutes (timed and untimed codes): 45 Total Session Time (minutes): 45 Session Start Time : 1015 Session Stop Time : 1100 GODWIN Castro, PT, DPT. [facility] 03-15-2023 History of Present illness Narrative Program_ID:[id number] Access Code: [email or web address] URL: [email or web address] Date: 03-15-2023 Prepared By: Tomasz Wisdom Program Notes Exercises - Supine Heel Slide with Strap - 2 x daily - 7 x weekly - 2-3 - 10-20 - Long Sitting Quad Set with Towel Roll Under Heel - 2 x daily - 7 x weekly - 3 - 10-20 - Supine Short Arc Quad - 2 x daily - 7 x weekly - 3 - 10 - Seated Long Arc Quad - 2 x daily - 7 x weekly - 2 - 6-12 - Seated Gluteal Sets - x daily - 7 x weekly - - - Sit to Stand with Resistance Around Legs - 1-2 x daily - 7 x weekly - 1-2 - 10 - Standing Heel Raise - 1 x daily - 7 x weekly - 3 - 10 - Prone Knee Flexion - 1-2 x daily - 7 x weekly - 2 - 10 - Modified Miguel Stretch - 1 x daily - 7 x weekly - 2 - 10 - Squat with Counter Support - 1 x daily - 7 x weekly - 2 - 10 Episode Visit Count: 15 Therapist That Will Accept/Oversee The Plan Of Care: Tomasz Wisdom PT. Start of Care Date: 01/26/23 Onset Date: 01/24/23 Patient Identified by Name and Date of : Yes REHABILITATION AND SPORTS THERAPY PHYSICAL THERAPY TREATMENT NOTE ASSESSMENT: Gregory Barrera tolerated the session with fatigue and expected muscle soreness. He demonstrated improvements in R knee flexion AAROM and PROM. The patient will continue to benefit from ongoing skilled physical therapy to progress toward set goals. PLAN FOR NEXT VISIT: Continue with closed chain knee flexion SUBJECTIVE: Pt reports that his L knee is stiff today. Pain: Pain Pain Location: Knee - Right Description: Stiffness Post Treatment Pain Post Treatment Pain Location: Knee - Right Post Treatment Symptoms: At end of session, pt stated I feel like i stretched it, but not painful . OBJECTIVE MEASURES WITH LEVEL OF FUNCTION: LE AROM R Knee Flexion: 110 Degrees (with strap in supine hip flexor stretch) LE PROM R Ankle Dorsiflexion: 114 Degrees TREATMENT: Therapeutic Exercise: 1: Stationary Upright Bike Full-Revolutions, Seat Height 11: 6 Minutes. (Direct 1:1 throughout, subjective taken.) 2: Step stretch 3x30 seconds 3: Stair R Knee Flexion Mobility: 2x10, 2-3 hold. 4: *Supine hip flexor stretch with RLE off edge of table with strap to pull on knee for flexion ROM 5: *Squats at // bars x 5 rounds with 15 second holds 6: R Wall Flexion Slides: 3x12, 1-2 hold. 7: PROM knee flexion at edgeof table x 3 reps Skilled Intervention: Patient was educated in proper exercise technique and purpose for exercises. Reviewed and educated patient on additions/changes for home exercise program as above (*). Skilled judgment was used in selection of appropriate interventions. Provided written instruction for home exercise program to facilitate proper performance and compliance. Correct performance of therapeutic exercises was facilitated with verbal and visual cuing. Billing Therapeutic Exercise Treatment Minutes: 45 Skilled Treatment Time Minutes (timed and untimed codes): 45 Total Session Time (minutes): 45 Session Start Time : 1015 Session Stop Time : 1100 [facility] Tomasz Wisdom PT, DPT. documented in this encounter [facility] [place] 03-11-2023 Note HNO ID: [id number] Author: Tomasz Wisdom PT Service: ? Author Type: Physical Therapist Type: Progress Notes Filed: 03/11/2023 11:05 AM Note Text: Episode Visit Count: 14 Therapist That Will Accept/Oversee The Plan Of Care: Tomasz Wisdom PT. Start of Care Date: 01/26/23 Onset Date: 01/24/23 Patient Identified by Name and Date of : Yes REHABILITATION AND SPORTS THERAPY PHYSICAL THERAPY TREATMENT NOTE ASSESSMENT: Gregory E Wiltrout tolerated the session with expected muscle soreness. He demonstrated improvements in R Knee Flexion Motion. The patient will continue to benefit from ongoing skilled physical therapy to progress toward set goals and to continue with post-operative protocol. PLAN FOR NEXT VISIT: Progress knee flexion PROM/AAROM/AROM; work on gait without cane; work on closed chain ther-ex promoting knee flexion SUBJECTIVE: Patient reports seeing surgeon yesterday, stated he wanted him to work the bending a little more, he is happy where straightening is currently. Pain: Pain Pain Level: 2 Pain Location: Knee - Right Description: Stiffness Post Treatment Pain Post Treatment Pain Location: Knee - Right Post Treatment Pain Description: Sore OBJECTIVE MEASURES WITH LEVEL OF FUNCTION: LE AROM R Knee Flexion: 109 Degrees (Wall flexion slides.) TREATMENT: Therapeutic Exercise: 1: Stationary Upright Bike Full-Revolutions, Seat Height 11: 6 Minutes. (Direct 1:1 throughout, subjective taken.) 2: Stair R Knee Flexion Mobility: 3x10, 2-3 hold. 3: R Wall Flexion Slides: 3x12, 1-2 hold. 4: R Calf Prostretch: 4x30 . 5: Physioball Wall Squats: 1x12. Skilled Intervention: Patient was educated in proper exercise technique and purpose for exercises. Skilled judgment was used in selection of appropriate interventions. Correct performance of therapeutic exercises was facilitated with verbal, visual, and tactile cuing. Manual Therapy: 1: R Knee Flexion PROM with patient in semi-reclined position w/ PTs arm laced through legs as a lever: 2x10, 5 hold. Skilled Intervention: Manual skills to improve joint mobility, ROM, and decrease pain. Utilized anatomy knowledge of the therapist, and assessment of patient's response to intervention. Billing Therapeutic Exercise Treatment Minutes: 38 Manual TherapyTreatment Minutes: 6 Skilled Treatment Time Minutes (timed and untimed codes): 44 Total Session Time (minutes): 44 Session Start Time : 1001 Session Stop Time : 1045 Tomasz Wisdom PT [facility] 03-11-2023 History of Present illness Narrative Episode Visit Count: 14 Therapist That Will Accept/Oversee The Plan Of Care: Tomasz Wisdom PT. Start of Care Date: 01/26/23 Onset Date: 01/24/23 Patient Identified by Name and Date of : Yes REHABILITATION AND SPORTS THERAPY PHYSICAL THERAPY TREATMENT NOTE ASSESSMENT: Gregory Barrera tolerated the session with expected muscle soreness. He demonstrated improvements in R Knee Flexion Motion. The patient will continue to benefit from ongoing skilled physical therapy to progress toward set goals and to continue with post-operative protocol. PLAN FOR NEXT VISIT: Progress knee flexion PROM/AAROM/AROM; work on gait without cane; work on closed chain ther-ex promoting knee flexion SUBJECTIVE: Patient reports seeing surgeon yesterday, stated he wanted him to work the bending a little more, he is happy where straightening is currently. Pain: Pain Pain Level: 2 Pain Location: Knee - Right Description: Stiffness Post Treatment Pain Post Treatment Pain Location: Knee - Right Post Treatment Pain Description: Sore OBJECTIVE MEASURES WITH LEVEL OF FUNCTION: LE AROM R Knee Flexion: 109 Degrees (Wall flexion slides.) TREATMENT: Therapeutic Exercise: 1: Stationary Upright Bike Full-Revolutions, Seat Height 11: 6 Minutes. (Direct 1:1 throughout, subjective taken.) 2: Stair R Knee Flexion Mobility: 3x10, 2-3 hold. 3: R Wall Flexion Slides: 3x12, 1-2 hold. 4: R Calf Prostretch: 4x30 . 5: Physioball Wall Squats: 1x12. Skilled Intervention: Patient was educated in proper exercise technique and purpose for exercises. Skilled judgment was used in selection of appropriate interventions. Correct performance of therapeutic exercises was facilitated with verbal, visual, and tactile cuing. Manual Therapy: 1: R Knee Flexion PROM with patient in semi-reclined position w/ PTs arm laced through legs as a lever: 2x10, 5 hold. Skilled Intervention: Manual skills to improve joint mobility, ROM, and decrease pain. Utilized anatomy knowledge of the therapist, and assessment of patient's response to intervention. Billing Therapeutic Exercise Treatment Minutes: 38 Manual TherapyTreatment Minutes: 6 Skilled Treatment Time Minutes (timed and untimed codes): 44 Total Session Time (minutes): 44 Session Start Time : 1001 Session Stop Time : 1045 Tomasz Wisdom PT documented in this encounter [facility] [place] 03-08-2023 Note HNO ID: [id number] Author: Tomasz Wisdom PT Service: ? Author Type: Physical Therapist Type: Progress Notes Filed: 03/08/2023 12:24 PM Note Text: Episode Visit Count: 13 Therapist That Will Accept/Oversee The Plan Of Care: Tomasz Wisdom PT. Start of Care Date: 01/26/23 Onset Date: 01/24/23 Patient Identified by Name and Date of : Yes REHABILITATION AND SPORTS THERAPY PHYSICAL THERAPY TREATMENT NOTE ASSESSMENT: Gregory Barrera tolerated the session with fatigue and expected muscle soreness. He demonstrated improvements in R knee flexion AAROM. The patient will continue to benefit from ongoing skilled physical therapy to progress toward set goals. PLAN FOR NEXT VISIT: Progress knee flexion; joint mobs for knee flexion; progress quad and glute strength as able. SUBJECTIVE: Pt reports that his knee is stiff today. Pain: Pain Pain Level: 3 Pain Location: Knee - Right Post Treatment Pain Post Treatment Pain Location: Knee - Right Post Treatment Symptoms: sore OBJECTIVE MEASURES WITH LEVEL OF FUNCTION: LE AROM R Knee Flexion: 106 Degrees (AAROM with strap, 100 without strap) TREATMENT: Therapeutic Exercise: 1: Stationary Upright Bike Rockers/Half-Revolutions, Seat Height 11: 7.5 Minutes. (Direct 1:1 throughout, subjective taken.) 2: R knee flexion stretch on step 5x30 seconds 3: [place] assited knee flexion wiht therapist arm laced throught legs x 3 minutes 4: R Heel Slides AAROM w/ Strap: 2x15, 1 hold. 5: R Fwd Step-ups: 2x10, Green+Blue Box. Skilled Intervention: Patient was educated in proper exercise technique and purpose for exercises. Skilled judgment was used in selection of appropriate interventions. Correct performance of therapeutic exercises was facilitated with verbal and visual cuing. Billing Therapeutic Exercise Treatment Minutes: 44 Skilled Treatment Time Minutes (timed and untimed codes): 44 Total Session Time (minutes): 44 Session Start Time : 1015 Session Stop Time : 1059 GODWIN Castro, PT, DPT. [facility] 03-04-2023 Note HNO ID: [id number] Author: Tomasz Wisdom PT Service: ? Author Type: Physical Therapist Type: Progress Notes Filed: 03/04/2023 11:02 AM Note Text: Episode Visit Count: 12 Therapist That Will Accept/Oversee The Plan Of Care: Tomasz Wisdom PT. Start of Care Date: 01/26/23 Onset Date: 01/24/23 Patient Identified by Name and Date of : Yes REHABILITATION AND SPORTS THERAPY PHYSICAL THERAPY TREATMENT NOTE ASSESSMENT: Gregroy Barrera tolerated the session with expected muscle soreness. He demonstrated trunk compensation with lateral step-ups - control and form improved following verbal and tactile cues. The patient will continue to benefit from ongoing skilled physical therapy to progress toward set goals and to continue with post-operative protocol. PLAN FOR NEXT VISIT: Progress knee flexion; joint mobs for knee flexion; progress quad and glute strength as able. SUBJECTIVE: Patient reports slight ache in the anterior knee; still reports stiffness in the overall knee. [place] good after last visit. Pain: Pain Pain Level: 2 Pain Location: Knee - Right Description: Aching, Stiffness Post Treatment Pain Post Treatment Pain Level: Better Post Treatment Pain Location: Knee - Right Post Treatment Symptoms: Less Stiff. OBJECTIVE MEASURES WITH LEVEL OF FUNCTION: LE AROM R Knee Flexion: 104 Degrees (w/ Stair Mobility.) TREATMENT: Therapeutic Exercise: 1: Stationary Upright Bike Rockers/Half-Revolutions, Seat Height 11: 7.5 Minutes. (Direct 1:1 throughout, subjective taken.) 2: R Fwd Step-ups: 2x15, Green+Blue Box. 3: R Lateral Step-ups: 2x15, Blue Box. 4: Stair Knee Flexion Mobility: 3x10. Skilled Intervention: Patient was educated in proper exercise technique and purpose for exercises. Reviewed and educated patient on additions/changes for home exercise program as above (*). Skilled judgment was used in selection of appropriate interventions. Provided written instruction for home exercise program to facilitate proper performance and compliance. Correct performance of therapeutic exercises was facilitated with verbal, visual, and tactile cuing. Manual Therapy: 1: Passive Tibial IR with patient lunging into R Knee Flexion on stairs: 2x10. 2: Manual prone knee flexion PROM w/ gentle overpressure: 2x10. 3: Anterior AND Posterior Tibial Translations to patient tolerance. (Used to promote knee flexion/extension) Skilled Intervention: Manual skills to improve joint mobility, ROM, and decrease pain. Utilized anatomy knowledge of the therapist, and assessment of patient's response to intervention. Billing Therapeutic Exercise Treatment Minutes: 30 Manual TherapyTreatment Minutes: 13 Skilled Treatment Time Minutes (timed and untimed codes): 43 Total Session Time (minutes): 43 Session Start Time : 914 Session Stop Time : 957 Tomasz Alyx, PT [facility] 03-04-2023 History of Present illness Narrative Episode Visit Count: 12 Therapist That Will Accept/Oversee The Plan Of Care: Tomasz Wisdom PT. Start of Care Date: 01/26/23 Onset Date: 01/24/23 Patient Identified by Name and Date of : Yes REHABILITATION AND SPORTS THERAPY PHYSICAL THERAPY TREATMENT NOTE ASSESSMENT: Gregory Barrera tolerated the session with expected muscle soreness. He demonstrated trunk compensation with lateral step-ups - control and form improved following verbal and tactile cues. The patient will continue to benefit from ongoing skilled physical therapy to progress toward set goals and to continue with post-operative protocol. PLAN FOR NEXT VISIT: Progress knee flexion; joint mobs for knee flexion; progress quad and glute strength as able. SUBJECTIVE: Patient reports slight ache in the anterior knee; still reports stiffness in the overall knee. [place] good after last visit. Pain: Pain Pain Level: 2 Pain Location: Knee - Right Description: Aching, Stiffness Post Treatment Pain Post Treatment Pain Level: Better Post Treatment Pain Location: Knee - Right Post Treatment Symptoms: Less Stiff. OBJECTIVE MEASURES WITH LEVEL OF FUNCTION: LE AROM R Knee Flexion: 104 Degrees (w/ Stair Mobility.) TREATMENT: Therapeutic Exercise: 1: Stationary Upright Bike Rockers/Half-Revolutions, Seat Height 11: 7.5 Minutes. (Direct 1:1 throughout, subjective taken.) 2: R Fwd Step-ups: 2x15, Green+Blue Box. 3: R Lateral Step-ups: 2x15, Blue Box. 4: Stair Knee Flexion Mobility: 3x10. Skilled Intervention: Patient was educated in proper exercise technique and purpose for exercises. Reviewed and educated patient on additions/changes for home exercise program as above (*). Skilled judgment was used in selection of appropriate interventions. Provided written instruction for home exercise program to facilitate proper performance and compliance. Correct performance of therapeutic exercises was facilitated with verbal, visual, and tactile cuing. Manual Therapy: 1: Passive Tibial IR with patient lunging into R Knee Flexion on stairs: 2x10. 2: Manual prone knee flexion PROM w/ gentle overpressure: 2x10. 3: Anterior & Posterior Tibial Translations to patient tolerance. (Used to promote knee flexion/extension) Skilled Intervention: Manual skills to improve joint mobility, ROM, and decrease pain. Utilized anatomy knowledge of the therapist, and assessment of patient's response to intervention. Billing Therapeutic Exercise Treatment Minutes: 30 Manual TherapyTreatment Minutes: 13 Skilled Treatment Time Minutes (timed and untimed codes): 43 Total Session Time (minutes): 43 Session Start Time : 914 Session Stop Time : 957 Tomasz Wisdom PT documented in this encounter [facility] [place] 03-01-2023 Note HNO ID: [id number] Author: Tomasz Wisdom PT Service: ? Author Type: Physical Therapist Type: Progress Notes Filed: 03/01/2023 12:10 PM Note Text: Episode Visit Count: 11 Therapist That Will Accept/Oversee The Plan Of Care: Tomasz Wisdom PT. Start of Care Date: 01/26/23 Onset Date: 01/24/23 Patient Identified by Name and Date of : Yes REHABILITATION AND SPORTS THERAPY PHYSICAL THERAPY TREATMENT NOTE ASSESSMENT: Gregory Barrera tolerated the session with decreased symptoms and expected muscle soreness. He demonstrated understanding of education provided and listed below. Patient with difficulty in right lower extremity Knee Flexion this date. The patient will continue to benefit from ongoing skilled physical therapy to progress toward set goals and to continue with post-operative protocol. PLAN FOR NEXT VISIT: AROM/AAROM/PROM for knee flexion and extension; progress quad and glute strength as able. SUBJECTIVE: Patient reports he was walking in a store not even an hour ago, made a slight turn and felt a pop/sharp ache in the R Knee. Reports he thinks he is doing too much/on his feet to much at home. Pain: Pain Pain Level: 3 Pain Location: Knee - Right Description: Aching, Stiffness Post Treatment Pain Post Treatment Pain Level: Better Post Treatment Pain Location: Knee - Right OBJECTIVE MEASURES WITH LEVEL OF FUNCTION: LE AROM R Knee Flexion: 100 Degrees (w/ strap.) TREATMENT: Therapeutic Exercise: 1: Stationary Upright Bike Rockers/Half-Revolutions, Seat Height 11: 6 Minutes. (Direct 1:1 throughout; subjective taken.) 2: R Knee-Extension Holds: 3 Minutes, 7.5lbs. 3: R Heel Slides AAROM w/ Strap: 3x15, 1 hold. 4: R Quad Sets: 2x15, w/ 4#cuff assist, 5 holds. 5: *Education and discussion throughout completion of ther-ex interventions regarding the patient doing too much at home leading to increased stiffness/pain; education and advised patient on proper recovery and activity reduction for home. Skilled Intervention: Patient was educated in proper exercise technique and purpose for exercises. Skilled judgment was used in selection of appropriate interventions. Correct performance of therapeutic exercises was facilitated with verbal, visual, and tactile cuing. Manual Therapy: 1: Manual prone knee flexion PROM w/ gentle overpressure: 3x10. 2: Manual Tibial Internal/External Rotations: to patient tolerance. (Used to promote knee flexion/extension) 3: Anterior AND Posterior Tibial Translations to patient tolerance. (Used to promote knee flexion/extension) Skilled Intervention: Manual skills to improve joint mobility, ROM, and decrease pain. Utilized anatomy knowledge of the therapist, and assessment of patient's response to intervention. Billing Therapeutic Exercise Treatment Minutes: 30 Manual TherapyTreatment Minutes: 13 Skilled Treatment Time Minutes (timed and untimed codes): 43 Total Session Time (minutes): 43 Session Start Time : 944 Session Stop Time : 1027 Tomasz Wisdom, PT [facility] 03-01-2023 History of Present illness Narrative Episode Visit Count: 11 Therapist That Will Accept/Oversee The Plan Of Care: Tomasz Wisdom PT. Start of Care Date: 01/26/23 Onset Date: 01/24/23 Patient Identified by Name and Date of : Yes REHABILITATION AND SPORTS THERAPY PHYSICAL THERAPY TREATMENT NOTE ASSESSMENT: Gregory Barrera tolerated the session with decreased symptoms and expected muscle soreness. He demonstrated understanding of education provided and listed below. Patient with difficulty in right lower extremity Knee Flexion this date. The patient will continue to benefit from ongoing skilled physical therapy to progress toward set goals and to continue with post-operative protocol. PLAN FOR NEXT VISIT: AROM/AAROM/PROM for knee flexion and extension; progress quad and glute strength as able. SUBJECTIVE: Patient reports he was walking in a store not even an hour ago, made a slight turn and felt a pop/sharp ache in the R Knee. Reports he thinks he is doing too much/on his feet to much at home. Pain: Pain Pain Level: 3 Pain Location: Knee - Right Description: Aching, Stiffness Post Treatment Pain Post Treatment Pain Level: Better Post Treatment Pain Location: Knee - Right OBJECTIVE MEASURES WITH LEVEL OF FUNCTION: LE AROM R Knee Flexion: 100 Degrees (w/ strap.) TREATMENT: Therapeutic Exercise: 1: Stationary Upright Bike Rockers/Half-Revolutions, Seat Height 11: 6 Minutes. (Direct 1:1 throughout; subjective taken.) 2: R Knee-Extension Holds: 3 Minutes, 7.5lbs. 3: R Heel Slides AAROM w/ Strap: 3x15, 1 hold. 4: R Quad Sets: 2x15, w/ 4#cuff assist, 5 holds. 5: *Education and discussion throughout completion of ther-ex interventions regarding the patient doing too much at home leading to increased stiffness/pain; education and advised patient on proper recovery and activity reduction for home. Skilled Intervention: Patient was educated in proper exercise technique and purpose for exercises. Skilled judgment was used in selection of appropriate interventions. Correct performance of therapeutic exercises was facilitated with verbal, visual, and tactile cuing. Manual Therapy: 1: Manual prone knee flexion PROM w/ gentle overpressure: 3x10. 2: Manual Tibial Internal/External Rotations: to patient tolerance. (Used to promote knee flexion/extension) 3: Anterior & Posterior Tibial Translations to patient tolerance. (Used to promote knee flexion/extension) Skilled Intervention: Manual skills to improve joint mobility, ROM, and decrease pain. Utilized anatomy knowledge of the therapist, and assessment of patient's response to intervention. Billing Therapeutic Exercise Treatment Minutes: 30 Manual TherapyTreatment Minutes: 13 Skilled Treatment Time Minutes (timed and untimed codes): 43 Total Session Time (minutes): 43 Session Start Time : 944 Session Stop Time : 1027 Tomasz Wisdom PT documented in this encounter [facility] [place] 02-25-2023 Note HNO ID: [id number] Author: Tomasz Wisdom PT Service: ? Author Type: Physical Therapist Type: Progress Notes Filed: 02/25/2023 10:08 AM Note Text: Episode Visit Count: 10 Therapist That Will Accept/Oversee The Plan Of Care: Tomasz Wisdom PT. Start of Care Date: 01/26/23 Onset Date: 01/24/23 Patient Identified by Name and Date of : Yes REHABILITATION AND SPORTS THERAPY PHYSICAL THERAPY TREATMENT NOTE ASSESSMENT: Gregory Barrera tolerated the session with expected muscle soreness and no issues. He demonstrated difficulty with R Knee Flexion due to stiffness. The patient will continue to benefit from ongoing skilled physical therapy to progress toward set goals. PLAN FOR NEXT VISIT: AROM/AAROM/PROM for knee flexion and extension; progress quad and glute strength as able. SUBJECTIVE: Patient reports soreness following last session; reports working outside yesterday for 1 hour and 45 minutes. Pain: Pain Pain Level: 3 Pain Location: Knee - Right Description: Stiffness Post Treatment Pain Post Treatment Pain Location: Knee - Right Post Treatment Symptoms: Less stiffness and expected soreness in the R Knee. OBJECTIVE MEASURES WITH LEVEL OF FUNCTION: LE AROM R Knee Flexion: 104 Degrees (104 deg w/ strap.) TREATMENT: Therapeutic Exercise: 1: Stationary Upright Bike Rockers/Half-Revolutions, Seat Height 11: 6 Minutes. (Direct 1:1 throughout; subjective taken.) 2: R Knee-Extension Holds: 3 Minutes, 7.5lbs. 3: R Heel Slides AAROM w/ Strap: 3x15, 1 hold. 4: R SLR: 2x15. 5: R SLR over object: 3x8. 6: Prone R HS Curls: 4x10, 3#cuff. 7: R LAQ: 2x15. Skilled Intervention: Patient was educated in proper exercise technique and purpose for exercises. Skilled judgment was used in selection of appropriate interventions. Correct performance of therapeutic exercises was facilitated with verbal, visual, and tactile cuing. Manual Therapy: 1: Manual prone knee flexion PROM w/ gentle overpressure: 3x10. Skilled Intervention: Manual skills to improve joint mobility, ROM, and decrease pain. Utilized anatomy knowledge of the therapist, and assessment of patient's response to intervention. Billing Therapeutic Exercise Treatment Minutes: 40 Manual TherapyTreatment Minutes: 7 Skilled Treatment Time Minutes (timed and untimed codes): 47 Total Session Time (minutes): 47 Session Start Time : 0915 Session Stop Time : 1002 Tomasz Wisdom PT [facility] 02-25-2023 History of Present illness Narrative Episode Visit Count: 10 Therapist That Will Accept/Oversee The Plan Of Care: Tomasz Wisdom PT. Start of Care Date: 01/26/23 Onset Date: 01/24/23 Patient Identified by Name and Date of : Yes REHABILITATION AND SPORTS THERAPY PHYSICAL THERAPY TREATMENT NOTE ASSESSMENT: Gregory Barrera tolerated the session with expected muscle soreness and no issues. He demonstrated difficulty with R Knee Flexion due to stiffness. The patient will continue to benefit from ongoing skilled physical therapy to progress toward set goals. PLAN FOR NEXT VISIT: AROM/AAROM/PROM for knee flexion and extension; progress quad and glute strength as able. SUBJECTIVE: Patient reports soreness following last session; reports working outside yesterday for 1 hour and 45 minutes. Pain: Pain Pain Level: 3 Pain Location: Knee - Right Description: Stiffness Post Treatment Pain Post Treatment Pain Location: Knee - Right Post Treatment Symptoms: Less stiffness and expected soreness in the R Knee. OBJECTIVE MEASURES WITH LEVEL OF FUNCTION: LE AROM R Knee Flexion: 104 Degrees (104 deg w/ strap.) TREATMENT: Therapeutic Exercise: 1: Stationary Upright Bike Rockers/Half-Revolutions, Seat Height 11: 6 Minutes. (Direct 1:1 throughout; subjective taken.) 2: R Knee-Extension Holds: 3 Minutes, 7.5lbs. 3: R Heel Slides AAROM w/ Strap: 3x15, 1 hold. 4: R SLR: 2x15. 5: R SLR over object: 3x8. 6: Prone R HS Curls: 4x10, 3#cuff. 7: R LAQ: 2x15. Skilled Intervention: Patient was educated in proper exercise technique and purpose for exercises. Skilled judgment was used in selection of appropriate interventions. Correct performance of therapeutic exercises was facilitated with verbal, visual, and tactile cuing. Manual Therapy: 1: Manual prone knee flexion PROM w/ gentle overpressure: 3x10. Skilled Intervention: Manual skills to improve joint mobility, ROM, and decrease pain. Utilized anatomy knowledge of the therapist, and assessment of patient's response to intervention. Billing Therapeutic Exercise Treatment Minutes: 40 Manual TherapyTreatment Minutes: 7 Skilled Treatment Time Minutes (timed and untimed codes): 47 Total Session Time (minutes): 47 Session Start Time : 914 Session Stop Time : 1001 Tomasz Wisdom PT documented in this encounter [facility] [place] 02-23-2023 Note HNO ID: [id number] Author: Tomasz Wisdom PT Service: ? Author Type: Physical Therapist Type: Progress Notes Filed: 02/25/2023 9:21 AM Note Text: Episode Visit Count: 9 Therapist That Will Accept/Oversee The Plan Of Care: Tomasz Wisdom PT. Start of Care Date: 01/26/23 Onset Date: 01/24/23 Patient Identified by Name and Date of : Yes REHABILITATION AND SPORTS THERAPY PHYSICAL THERAPY TREATMENT NOTE ASSESSMENT: Gregory Barrera tolerated the session with expected muscle soreness. He demonstrated improvements in R Knee Flexion AROM and decreased quad lag with SLR. The patient will continue to benefit from ongoing skilled physical therapy to progress toward set goals. PLAN FOR NEXT VISIT: Continue upright bike revolutions; manual PROM for knee flexion and extension; progress quad and glute strength as able. SUBJECTIVE: Patient reports feeling good after last session; has been working the R Knee at home, was on and off his feet yesterday for about 6 hours. Pain: Pain Pain Level: 3 Pain Location: Knee - Right Description: Stiffness Post Treatment Pain Post Treatment Pain Location: Knee - Right Post Treatment Symptoms: Good workout per patient. OBJECTIVE MEASURES WITH LEVEL OF FUNCTION: LE AROM R Knee Flexion: 105 Degrees (100 deg. wall slides; 105deg w/ strap.) TREATMENT: Therapeutic Exercise: 1: Stationary Upright Bike Rockers/Half-Revolutions, Seat Height 11: 6 Minutes. (Direct 1:1 throughout; subjective taken.) 2: R Heel Slides AAROM w/ Strap: 2x20, 1 hold. 3: RLE Wall Flexion Slides: 2x20. 4: R SLR: 3x12. 5: *Prone R Knee Curls: 2x10. 6: R Fwd Step-ups: 2x10, Blue Box. 7: R Lateral Step-ups: 2x10, Blue Box. Skilled Intervention: Patient was educated in proper exercise technique and purpose for exercises. Reviewed and educated patient on additions/changes for home exercise program as above (*). Skilled judgment was used in selection of appropriate interventions. Provided written instruction for home exercise program to facilitate proper performance and compliance. Correct performance of therapeutic exercises was facilitated with verbal, visual, and tactile cuing. Manual Therapy: 1: Manual prone knee flexion PROM w/ gentle overpressure: 3x10. Skilled Intervention: Manual skills to improve joint mobility, ROM, and decrease pain. Utilized anatomy knowledge of the therapist, and assessment of patient's response to intervention. Billing Therapeutic Exercise Treatment Minutes: 35 Manual TherapyTreatment Minutes: 8 Skilled Treatment Time Minutes (timed and untimed codes): 43 Total Session Time (minutes): 43 Session Start Time : 1302 Session Stop Time : 1345 Tomasz Wisdom PT [facility] 02-23-2023 History of Present illness Narrative Program_ID:[id number] Access Code: [email or web address] URL: [email or web address] Date: 02-23-2023 Prepared By: Tomasz Wisdom Program Notes Exercises - Supine Heel Slide with Strap - 2 x daily - 7 x weekly - 2-3 - 10-20 - Long Sitting Quad Set with Towel Roll Under Heel - 2 x daily - 7 x weekly - 3 - 10-20 - Supine Short Arc Quad - 2 x daily - 7 x weekly - 3 - 10 - Seated Long Arc Quad - 2 x daily - 7 x weekly - 2 - 6-12 - Seated Gluteal Sets - x daily - 7 x weekly - - - Sit to Stand with Resistance Around Legs - 1-2 x daily - 7 x weekly - 1-2 - 10 - Standing Heel Raise - 1 x daily - 7 x weekly - 3 - 10 - Prone Knee Flexion - 1-2 x daily - 7 x weekly - 2 - 10 Episode Visit Count: 9 Therapist That Will Accept/Oversee The Plan Of Care: Tomasz Wisdom PT. Start of Care Date: 01/26/23 Onset Date: 01/24/23 Patient Identified by Name and Date of : Yes REHABILITATION AND SPORTS THERAPY PHYSICAL THERAPY TREATMENT NOTE ASSESSMENT: Gregory Barrera tolerated the session with expected muscle soreness. He demonstrated improvements in R Knee Flexion AROM and decreased quad lag with SLR. The patient will continue to benefit from ongoing skilled physical therapy to progress toward set goals. PLAN FOR NEXT VISIT: Continue upright bike revolutions; manual PROM for knee flexion and extension; progress quad and glute strength as able. SUBJECTIVE: Patient reports feeling good after last session; has been working the R Knee at home, was on and off his feet yesterday for about 6 hours. Pain: Pain Pain Location: Knee - Right Post Treatment Pain Post Treatment Pain Location: Knee - Right Post Treatment Symptoms: Good workout per patient. OBJECTIVE MEASURES WITH LEVEL OF FUNCTION: LE AROM R Knee Flexion: 105 Degrees (100 deg. wall slides; 105deg w/ strap.) TREATMENT: Therapeutic Exercise: 1: Stationary Upright Bike Rockers/Half-Revolutions, Seat Height 11: 6 Minutes. (Direct 1:1 throughout; subjective taken.) 2: R Heel Slides AAROM w/ Strap: 2x20, 1 hold. 3: RLE Wall Flexion Slides: 2x20. 4: R SLR: 3x12. 5: *Prone R Knee Curls: 2x10. 6: R Fwd Step-ups: 2x10, Blue Box. 7: R Lateral Step-ups: 2x10, Blue Box. Skilled Intervention: Patient was educated in proper exercise technique and purpose for exercises. Reviewed and educated patient on additions/changes for home exercise program as above (*). Skilled judgment was used in selection of appropriate interventions. Provided written instruction for home exercise program to facilitate proper performance and compliance. Correct performance of therapeutic exercises was facilitated with verbal, visual, and tactile cuing. Manual Therapy: 1: Manual prone knee flexion PROM w/ gentle overpressure: 3x10. Skilled Intervention: Manual skills to improve joint mobility, ROM, and decrease pain. Utilized anatomy knowledge of the therapist, and assessment of patient's response to intervention. Billing Therapeutic Exercise Treatment Minutes: 35 Manual TherapyTreatment Minutes: 8 Skilled Treatment Time Minutes (timed and untimed codes): 43 Total Session Time (minutes): 43 Session Start Time : 1302 Session Stop Time : 1345 Tomasz Wisdom PT documented in this encounter [facility] [place] 02-18-2023 Note HNO ID: [id number] Author: Tomasz Wisdom PT Service: ? Author Type: Physical Therapist Type: Progress Notes Filed: 02/18/2023 3:17 PM Note Text: Episode Visit Count: 8 Therapist That Will Accept/Oversee The Plan Of Care: Tomasz Wisdom PT. Start of Care Date: 01/26/23 Onset Date: 01/24/23 Patient Identified by Name and Date of : Yes REHABILITATION AND SPORTS THERAPY PHYSICAL THERAPY PROGRESS REPORT PLAN OF CARE UPDATE: Assessment: Gregory Barrera demonstrates continued improvement in R Knee range of motion, strength, stability, and ambulation ability and reduction of gait deviations. He has progressed toward goals. Patient continues to present with impairments in ADL's, gait, joint mobility, overall function, range of motion, strength, symptom management, and tissue tenderness that interfere with . Current prognosis is Good due to: current objective clinical presentation, positive past response to therapy, within-session changes, good support system/ coping skills .He will benefit from continued skilled therapy services to meet the updated goals for this plan of care as noted below. Goals for Episode of Care: Updated on 02/18/23. Goals for Episode of Care: created on 01/26/23 through 04/06/23 [place] in home exercise program (MET) 2.Patient will decrease pain rating by 2 points to meet minimal clinical important difference for numeric pain rating scale. (Progressing Towards) Patient will increase active ROM of R knee to 0-135 degrees to allow the patient to improve walking in the community, stair navigation as well as performance of occupation demands. (Progressing Towards) Patient will demonstrate increase in RLE strength to 5/5 during manual muscle testing in order to improve function for home management tasks, leisure/recreation skills, light to heavy functional tasks, job demands and prior functional tasks. (Progressing Towards) Normal gait without use of an assistive device (Progressing Towards) Reciprocal stair negotiation. (Progressing Towards) Patient will report no pain/symptoms with walking. (Progressing Towards) Patient Goals: Improve motion and strength, decrease pain and return to PLOF. Be able to begin exercising. Planned Interventions, Frequency, and Duration: 2x/week, 4 weeks Total Number of Visits Planned: 8 (Patient with 8 scheduled visits currently left in POC. Will update and add more after progression through the scheduled visits.) Patient to be seen for Therapeutic exercise (90942), Neuromuscular re-education ([id number]), Manual therapy (78002), Therapeutic activities (21246), Self-assisted management (75991), Gait Training (64524), Patient/Family/Caregiver Education, Body Mechanics Training, Functional training SUBJECTIVE: Patient reports R Knee Stiffness today; was doing really good following last session and the day after. Patient reports continued improvement overall, every time following PT patient reports feeling the best, notes continued progress. Pain: Pain Pain Level: 4 Pain Location: Knee - Right Description: Stiffness Post Treatment Pain Post Treatment Pain Location: Knee - Right Post Treatment Symptoms: Less stiffness, RLE sore following. PROMIS Scales Higher is Better 02/11/2023 Phys Func - Score 38 (moderate dysfunction) Phys Func - Percentile 12 % Self-Eff Symptom - Score 43 (Average) Self-Eff Symptom - Percentile 24 % T-scores: mean of general population = 50. 5 points is clinically meaningfully difference Percentiles provide an indication of how the patient's score ranks in relation to the general population. Higher percentile rankings indicate better function/quality of life. 50th percentile is the average of the general population and indicates half of respondents had a worse score. OBJECTIVE MEASURES WITH LEVEL OF FUNCTION: LE AROM R Knee Flexion: 103 Degrees (103 during wall slides; 102 w/ strap.) LE PROM R Knee Flexion: 106 Degrees LE Strength R LE Strength: Grossly 4/5. (Will objectively assess handheld dynamomter strength at a later date.) TREATMENT: Therapeutic Exercise: 1: Stationary Upright Bike Rockers/Half-Revolutions, Seat Height 11: 6 Minutes. (Direct 1:1 throughout; subjective taken.) 2: R Heel Slides AAROM w/ Strap: 2x20, 1 hold. 3: R Wall Flexion Slides: 2x20. 4: R LAQ: 2x15. 5: R Fwd Step-ups: 3x10, Blue Box. 6: R Lateral Step-ups: 2x10, Blue Box. Skilled Intervention: Patient was educated in proper exercise technique and purpose for exercises. Skilled judgment was used in selection of appropriate interventions. Correct performance of therapeutic exercises was facilitated with verbal, visual, and tactile cuing. Billing Therapeutic Exercise Treatment Minutes: 42 Skilled Treatment Time Minutes (timed and untimed codes): 42 Total Session Time (minutes): 42 Session Start Time : 1430 Session Stop Time : 1512 Tomasz Wisdom PT [facility] 02-15-2023 Note HNO ID: [id number] Author: Tomasz Wisdom PT Service: ? Author Type: Physical Therapist Type: Progress Notes Filed: 02/23/2023 1:12 PM Note Text: Episode Visit Count: 7 Therapist That Will Accept/Oversee The Plan Of Care: Tomasz Wisdom PT. Start of Care Date: 01/26/23 Onset Date: 01/24/23 Patient Identified by Name and Date of : Yes REHABILITATION AND SPORTS THERAPY PHYSICAL THERAPY TREATMENT NOTE ASSESSMENT: Gregory Barrera tolerated the session with expected muscle soreness. He demonstrated improvements in R Knee AAROM. The patient will continue to benefit from ongoing skilled physical therapy to progress toward set goals and to continue with post-operative protocol. PLAN FOR NEXT VISIT: Continue upright bike revolutions; Trial step-ups; progress ther-ex as able. SUBJECTIVE: Patient reports less soreness in the R Knee; stiffness continues; felt good following last session. Continued compliance with HEP. Pain: Pain Pain Level: 5 Pain Location: Knee - Right Description: Stiffness Post Treatment Pain Post Treatment Pain Location: Knee - Right Post Treatment Pain Description: Sore OBJECTIVE MEASURES WITH LEVEL OF FUNCTION: LE AROM R Knee Flexion: 104 Degrees (AAROM w/ strap 104.) TREATMENT: Therapeutic Exercise: 1: Stationary Upright Bike Rockers/Half-Revolutions, Seat Height 11: 10 Minutes. (Subjective taken, direct 1:1 throughout, answered questions about sleeping position and elevation of RLE.) 2: R Heel Slides AAROM w/ Strap: 2x15, 1 hold. 3: R Quad Sets: 2x10, 10 hold. 4: Bench Bridge w/ slight knee flexion: 3x10 5: DBL Calf Raise: 2x15. 6: [id number]-zrmnpf: 2x8, GTB arounds knees. 7: Seated R Knee Flexion Foot Slide: 2x10. Skilled Intervention: Patient was educated in proper exercise technique and purpose for exercises. Reviewed and educated patient on additions/changes for home exercise program as above (*). Skilled judgment was used in selection of appropriate interventions. Provided written instruction for home exercise program to facilitate proper performance and compliance. Correct performance of therapeutic exercises was facilitated with verbal, visual, and tactile cuing. Manual Therapy: 1: Manual knee flexion/extension PROM gentle overpressure in sittin Sets of 12 w/ light overpressure. Skilled Intervention: Manual skills to improve joint mobility, ROM, and decrease pain. Utilized anatomy knowledge of the therapist, and assessment of patient's response to intervention. Billing Therapeutic Exercise Treatment Minutes: 38 Manual TherapyTreatment Minutes: 6 Skilled Treatment Time Minutes (timed and untimed codes): 44 Total Session Time (minutes): 44 Session Start Time : 1313 Session Stop Time : 1357 Tomasz Wisdom PT [facility] 02-11-2023 Note HNO ID: [id number] Author: Tomasz Wisdom, CESIA Service: ? Author Type: Physical Therapist Type: Progress Notes Filed: 02/11/2023 2:30 PM Note Text: Episode Visit Count: 6 Therapist That Will Accept/Oversee The Plan Of Care: Tomasz Wisdom PT. Start of Care Date: 01/26/23 Onset Date: 01/24/23 Patient Identified by Name and Date of : Yes REHABILITATION AND SPORTS THERAPY PHYSICAL THERAPY TREATMENT NOTE ASSESSMENT: Gregory Barrera tolerated the session with expected muscle soreness and no issues. He demonstrated difficulty with R Knee flexion. The patient will continue to benefit from ongoing skilled physical therapy to progress toward set goals and to continue with post-operative protocol. PLAN FOR NEXT VISIT: Continue R Knee ROM; progress ther-ex as able. SUBJECTIVE: Patient reports increased stiffness and pain today; walked a lot yesterday and RLE was in dependent position for an hour for carpal tunnel PT; had follow-up with PA-C of surgeon, no more ICD and compression stockings. [place] good following last session. Pain: Pain Pain Level: 6 Pain Location: Knee - Right Description: Stiffness Post Treatment Pain Post Treatment Pain Location: Knee - Right Post Treatment Pain Description: Sore Post Treatment Symptoms: Feels a lot better . OBJECTIVE MEASURES WITH LEVEL OF FUNCTION: LE AROM R Knee Flexion: 90 Degrees (AAROM w/ Strap.) LE PROM R Knee Flexion: 95 Degrees TREATMENT: Therapeutic Exercise: 1: Sci-Fit x 5 minutes. (Direct 1:1 throughout; subjective taken.) 2: R Heel Slides AAROM w/ Strap: 2x15, 1 hold. 3: R Quad Sets: 2x15, 5 holds. 4: *Education on completing home incisional cross-friction massage as able for incision elasticity. Skilled Intervention: Patient was educated in proper exercise technique and purpose for exercises. Skilled judgment was used in selection of appropriate interventions. Correct performance of therapeutic exercises was facilitated with verbal, visual, and tactile cuing. Manual Therapy: 1: Manual knee flexion/extension PROM gentle overpressure in sittinx15 w/ 3-5 sec hold. 2: Manual CFM to R Knee Incision. 3: Manual Med-Lateral Patella Mobs. Skilled Intervention: Manual skills to improve joint mobility, ROM, and decrease pain. Utilized anatomy knowledge of the therapist, and assessment of patient's response to intervention. Billing Therapeutic Exercise Treatment Minutes: 18 Manual TherapyTreatment Minutes: 23 Skilled Treatment Time Minutes (timed and untimed codes): 41 Total Session Time (minutes): 41 Session Start Time : 1300 Session Stop Time : 1341 Tomasz Wisdom PT [facility] 02-11-2023 History of Present illness Narrative Episode Visit Count: 6 Therapist That Will Accept/Oversee The Plan Of Care: Tomasz Wisdom PT. Start of Care Date: 01/26/23 Onset Date: 01/24/23 Patient Identified by Name and Date of : Yes REHABILITATION AND SPORTS THERAPY PHYSICAL THERAPY TREATMENT NOTE ASSESSMENT: Gregory Barrera tolerated the session with expected muscle soreness and no issues. He demonstrated difficulty with R Knee flexion. The patient will continue to benefit from ongoing skilled physical therapy to progress toward set goals and to continue with post-operative protocol. PLAN FOR NEXT VISIT: Continue R Knee ROM; progress ther-ex as able. SUBJECTIVE: Patient reports increased stiffness and pain today; walked a lot yesterday and RLE was in dependent position for an hour for carpal tunnel PT; had follow-up with [place] of surgeon, no more ICD and compression stockings. [place] good following last session. Pain: Pain Pain Level: 6 Pain Location: Knee - Right Description: Stiffness Post Treatment Pain Post Treatment Pain Location: Knee - Right Post Treatment Pain Description: Sore Post Treatment Symptoms: Feels a lot better . OBJECTIVE MEASURES WITH LEVEL OF FUNCTION: LE AROM R Knee Flexion: 90 Degrees (AAROM w/ Strap.) LE PROM R Knee Flexion: 95 Degrees TREATMENT: Therapeutic Exercise: 1: Sci-Fit x 5 minutes. (Direct 1:1 throughout; subjective taken.) 2: R Heel Slides AAROM w/ Strap: 2x15, 1 hold. 3: R Quad Sets: 2x15, 5 holds. 4: *Education on completing home incisional cross-friction massage as able for incision elasticity. Skilled Intervention: Patient was educated in proper exercise technique and purpose for exercises. Skilled judgment was used in selection of appropriate interventions. Correct performance of therapeutic exercises was facilitated with verbal, visual, and tactile cuing. Manual Therapy: 1: Manual knee flexion/extension PROM gentle overpressure in sittinx15 w/ 3-5 sec hold. 2: Manual CFM to R Knee Incision. 3: Manual Med-Lateral Patella Mobs. Skilled Intervention: Manual skills to improve joint mobility, ROM, and decrease pain. Utilized anatomy knowledge of the therapist, and assessment of patient's response to intervention. Billing Therapeutic Exercise Treatment Minutes: 18 Manual TherapyTreatment Minutes: 23 Skilled Treatment Time Minutes (timed and untimed codes): 41 Total Session Time (minutes): 41 Session Start Time : 1300 Session Stop Time : 1341 Tomasz Wisdom PT documented in this encounter [facility] [place] 02-08-2023 Note HNO ID: [id number] Author: Tomasz Wisdom PT Service: ? Author Type: Physical Therapist Type: Progress Notes Filed: 02/08/2023 9:11 AM Note Text: Episode Visit Count: 5 Therapist That Will Accept/Oversee The Plan Of Care: Tomasz Wisdom PT. Start of Care Date: 01/26/23 Onset Date: 01/24/23 Patient Identified by Name and Date of : Yes REHABILITATION AND SPORTS THERAPY PHYSICAL THERAPY TREATMENT NOTE ASSESSMENT: Gregory Barrera tolerated the session with expected muscle soreness and no issues. He demonstrated improvements in R Knee AAROM. The patient will continue to benefit from ongoing skilled physical therapy to progress toward set goals and to continue with post-operative protocol. PLAN FOR NEXT VISIT: Continue R Knee ROM; possibly add seated knee flex/ext iso's. SUBJECTIVE: Pt. reports stiffness in the incision and quad with supine heel slides at home; post-op appointment 02/10/23 and before next PT session. Pain: Pain Pain Level: 8 Pain Location: Knee - Right Description: Sore, Stiffness Post Treatment Pain Post Treatment Pain Location: Knee - Right Post Treatment Pain Description: Sore OBJECTIVE MEASURES WITH LEVEL OF FUNCTION: LE AROM R Knee Flexion: 98 Degrees (AAROM w/ Strap.) TREATMENT: Therapeutic Exercise: 1: Seated stepper x 5 minutes. (1:1 throughout and subjective taken.) 2: R Heel Slides AAROM w/ Strap: 2x15, 1 hold. 3: R Quad Sets: 2x15, 5 holds. 4: *Seated Hip ABD, GTB: 1x10, 5 hold. 5: *Seated Hip ADD Ball Squeeze: 1x10, 5 hold. 6: R SAQ: 2x15. Skilled Intervention: Patient was educated in proper exercise technique and purpose for exercises. Reviewed and educated patient on additions/changes for home exercise program as above (*). Skilled judgment was used in selection of appropriate interventions. Provided written instruction for home exercise program to facilitate proper performance and compliance. Correct performance of therapeutic exercises was facilitated with verbal, visual, and tactile cuing. Gait Trainin: 4 Laps of 40 Feet Gait/Standard Cane Training with step-to pattern, cane in LUE opposite of involved RLE/Knee. Emphasis on safe angelic and stability throughout gait pattern. Skilled Intervention: Patient was provided supervision during pre-gait/gait training to prevent falls and insure safety. Facilitated proper gait cycle with the use of verbal and visual cues for correction of gait deviations identified in the objective section above. Skilled judgment used to assess selection, proper sizing, and proper use of assistive device. Billing Therapeutic Exercise Treatment Minutes: 36 Gait Training Treatment Minutes: 8 Skilled Treatment Time Minutes (timed and untimed codes): 44 Total Session Time (minutes): 44 Session Start Time : 814 Session Stop Time : 0859 Tomasz Wisdom, PT [facility] 02-08-2023 History of Present illness Narrative Episode Visit Count: 5 Therapist That Will Accept/Oversee The Plan Of Care: Tomasz Wisdom PT. Start of Care Date: 01/26/23 Onset Date: 01/24/23 Patient Identified by Name and Date of : Yes REHABILITATION AND SPORTS THERAPY PHYSICAL THERAPY TREATMENT NOTE ASSESSMENT: Gregory Leo Bruce tolerated the session with expected muscle soreness and no issues. He demonstrated improvements in R Knee AAROM. The patient will continue to benefit from ongoing skilled physical therapy to progress toward set goals and to continue with post-operative protocol. PLAN FOR NEXT VISIT: Continue R Knee ROM; possibly add seated knee flex/ext iso's. SUBJECTIVE: Pt. reports stiffness in the incision and quad with supine heel slides at home; post-op appointment 02/10/23 and before next PT session. Pain: Pain Pain Level: 8 Pain Location: Knee - Right Description: Sore, Stiffness Post Treatment Pain Post Treatment Pain Location: Knee - Right Post Treatment Pain Description: Sore OBJECTIVE MEASURES WITH LEVEL OF FUNCTION: LE AROM R Knee Flexion: 98 Degrees (AAROM w/ Strap.) TREATMENT: Therapeutic Exercise: 1: Seated stepper x 5 minutes. (1:1 throughout and subjective taken.) 2: R Heel Slides AAROM w/ Strap: 2x15, 1 hold. 3: R Quad Sets: 2x15, 5 holds. 4: *Seated Hip ABD, GTB: 1x10, 5 hold. 5: *Seated Hip ADD Ball Squeeze: 1x10, 5 hold. 6: R SAQ: 2x15. Skilled Intervention: Patient was educated in proper exercise technique and purpose for exercises. Reviewed and educated patient on additions/changes for home exercise program as above (*). Skilled judgment was used in selection of appropriate interventions. Provided written instruction for home exercise program to facilitate proper performance and compliance. Correct performance of therapeutic exercises was facilitated with verbal, visual, and tactile cuing. Gait Trainin: 4 Laps of 40 Feet Gait/Standard Cane Training with step-to pattern, cane in LUE opposite of involved RLE/Knee. Emphasis on safe angelic and stability throughout gait pattern. Skilled Intervention: Patient was provided supervision during pre-gait/gait training to prevent falls and insure safety. Facilitated proper gait cycle with the use of verbal and visual cues for correction of gait deviations identified in the objective section above. Skilled judgment used to assess selection, proper sizing, and proper use of assistive device. Billing Therapeutic Exercise Treatment Minutes: 36 Gait Training Treatment Minutes: 8 Skilled Treatment Time Minutes (timed and untimed codes): 44 Total Session Time (minutes): 44 Session Start Time : 814 Session Stop Time : 858 Tomasz Wisdom PT documented in this encounter [facility] [place] 02-04-2023 Note HNO ID: [id number] Author: Tomasz Wisdom PT Service: ? Author Type: Physical Therapist Type: Progress Notes Filed: 02/07/2023 9:06 AM Note Text: Episode Visit Count: 4 Therapist That Will Accept/Oversee The Plan Of Care: Tomasz Wisdom PT. Start of Care Date: 01/26/23 Onset Date: 01/24/23 Patient Identified by Name and Date of : Yes REHABILITATION AND SPORTS THERAPY PHYSICAL THERAPY TREATMENT NOTE ASSESSMENT: Gregory Leo Chavaheidiyovany tolerated the session with fatigue and expected muscle soreness. He demonstrated improvements in R knee AAROM flexion and AROM extension. The patient will continue to benefit from ongoing skilled physical therapy to progress toward set goals. PLAN FOR NEXT VISIT: Continue with R knee ROM. SUBJECTIVE: Pt reports that his pain is different intervals at different times of the day. Pt reports that his knee stiffened up the other day. Pt pushed himself with exercises ysterday. Pain: Pain Pain Level: 7 Pain Location: Knee - Right Description: Sore Post Treatment Pain Post Treatment Pain Location: Knee - Right OBJECTIVE MEASURES WITH LEVEL OF FUNCTION: LE AROM R Knee Extension: -2 Degrees R Knee Flexion: 94 Degrees (AAROM with strap) Decreased toe off on RLE with ambulation. TREATMENT: Therapeutic Exercise: 1: Seated stepper x 5 minutes. (1:1 throughout, discussed current HEP and keeping ahead of the pain.) 2: R heel slides with strap 2x10 3: R Quad Sets: 2x10, 5 holds. 4: R heel slides in sitting 1x10 Skilled Intervention: Patient was educated in proper exercise technique and purpose for exercises. Skilled judgment was used in selection of appropriate interventions. Correct performance of therapeutic exercises was facilitated with verbal and visual cuing. Gait Trainin: Gait trainging with emphasis on heel to toe pattern to normalize gait pattern. Skilled Intervention: Patient was provided stand by assist during pre-gait/gait training to prevent falls and insure safety. Facilitated proper gait cycle with the use of verbal and visual cues for correction of gait deviations identified in the objective section above. Billing Therapeutic Exercise Treatment Minutes: 38 Gait Training Treatment Minutes: 8 Skilled Treatment Time Minutes (timed and untimed codes): 46 Total Session Time (minutes): 46 Session Start Time : 1314 Session Stop Time : 1400 Sidra Yates, GODWIN Wisdom, CESIA [facility] 02-04-2023 History of Present illness Narrative Episode Visit Count: 4 Therapist That Will Accept/Oversee The Plan Of Care: Tomasz Wisdom PT. Start of Care Date: 01/26/23 Onset Date: 01/24/23 Patient Identified by Name and Date of : Yes REHABILITATION AND SPORTS THERAPY PHYSICAL THERAPY TREATMENT NOTE ASSESSMENT: Gregory Barrera tolerated the session with fatigue and expected muscle soreness. He demonstrated improvements in R knee AAROM flexion and AROM extension. The patient will continue to benefit from ongoing skilled physical therapy to progress toward set goals. PLAN FOR NEXT VISIT: Continue with R knee ROM. SUBJECTIVE: Pt reports that his pain is different intervals at different times of the day. Pt reports that his knee stiffened up the other day. Pt pushed himself with exercises ysterday. Pain: Pain Pain Level: 7 Pain Location: Knee - Right Description: Sore Post Treatment Pain Post Treatment Pain Location: Knee - Right OBJECTIVE MEASURES WITH LEVEL OF FUNCTION: LE AROM R Knee Extension: -2 Degrees R Knee Flexion: 94 Degrees (AAROM with strap) Decreased toe off on RLE with ambulation. TREATMENT: Therapeutic Exercise: 1: Seated stepper x 5 minutes. (1:1 throughout, discussed current HEP and keeping ahead of the pain.) 2: R heel slides with strap 2x10 3: R Quad Sets: 2x10, 5 holds. 4: R heel slides in sitting 1x10 Skilled Intervention: Patient was educated in proper exercise technique and purpose for exercises. Skilled judgment was used in selection of appropriate interventions. Correct performance of therapeutic exercises was facilitated with verbal and visual cuing. Gait Trainin: Gait trainging with emphasis on heel to toe pattern to normalize gait pattern. Skilled Intervention: Patient was provided stand by assist during pre-gait/gait training to prevent falls and insure safety. Facilitated proper gait cycle with the use of verbal and visual cues for correction of gait deviations identified in the objective section above. Billing Therapeutic Exercise Treatment Minutes: 38 Gait Training Treatment Minutes: 8 Skilled Treatment Time Minutes (timed and untimed codes): 46 Total Session Time (minutes): 46 Session Start Time : 1314 Session Stop Time : 1400 GODWIN Castro PT documented in this encounter [facility] [place] 01-31-2023 Note HNO ID: [id number] Author: Tomasz Wisdom PT Service: ? Author Type: Physical Therapist Type: Progress Notes Filed: 01/31/2023 1:39 PM Note Text: Episode Visit Count: 3 Therapist That Will Accept/Oversee The Plan Of Care: Tomasz Wisdom PT. Start of Care Date: 01/26/23 Onset Date: 01/24/23 Patient Identified by Name and Date of : Yes REHABILITATION AND SPORTS THERAPY PHYSICAL THERAPY TREATMENT NOTE ASSESSMENT: Gregory Barrera tolerated the session with fatigue, expected muscle soreness, and no issues. He demonstrated improvements in R Knee Flexion AAROM AND PROM. The patient will continue to benefit from ongoing skilled physical therapy to progress toward set goals and to continue with post-operative protocol. PLAN FOR NEXT VISIT: Knee Flexion and Extension AROM/AAROM/PROM; quad strengthening. Continued ther-ex progression as able. SUBJECTIVE: Patient reports feeling good after last visit, however soreness a couple hours after. States it was hard to bend yesterday due to soreness; feels stiff today. Pain: Pain Pain Level: 6 Pain Location: Knee - Right Description: Sore Post Treatment Pain Post Treatment Pain Location: Knee - Right Post Treatment Pain Description: Sore OBJECTIVE MEASURES WITH LEVEL OF FUNCTION: Knee Observations R Swelling: RLE Pitting Edema R Ecchymosis : Posterior thigh brusing; decreased Lateral R Knee Bruising R Incision: Appropriate healing, well-approximated, no drainage. LE AROM R Knee Extension: -4 Degrees R Knee Flexion: 90 Degrees (AAROM w/ strap.) LE PROM R Knee Extension: -2 Degrees R Knee Flexion: 93 Degrees TREATMENT: Therapeutic Exercise: 1: R Quad Sets: 3x10, 5 holds. 2: R Heel Slides AAROM w/ Strap: 2x15, 1 hold. 3: R SAQ: 3x10. 4: R Knee-Extension Holds: 4 Minutes, with prop under ankle. 5: *Educated patient regarding his concern on R posterior thigh bruising following TKA; discussed how he is still very acute from procedure, gradually the bruising should improve as blood is reabsorbed and how the extent of bruising is unique for each patient. Discussed how structually his R TKA is fine; advised on continued elevation and ice application as well as to reach out to surgical team if continued concerns. Skilled Intervention: Patient was educated in proper exercise technique and purpose for exercises. Skilled judgment was used in selection of appropriate interventions. Correct performance of therapeutic exercises was facilitated with verbal, visual, and tactile cuing. Patient education as noted * Manual Therapy: 1: Manual knee flexion/extension PROM gentle overpressure in sittinx15 w/ 3-5 sec hold. 2: Supine R Knee Ext OP PROM: 1x10 3: Manual Med-Lateral Patella Mobs. Skilled Intervention: Manual skills to improve joint mobility, ROM, and decrease pain. Utilized anatomy knowledge of the therapist, and assessment of patient's response to intervention. Billing Therapeutic Exercise Treatment Minutes: 28 Manual TherapyTreatment Minutes: 14 Skilled Treatment Time Minutes (timed and untimed codes): 42 Total Session Time (minutes): 42 Session Start Time : 1018 Session Stop Time : 1100 Tomasz Wisdom PT [facility] 01-28-2023 Note HNO ID: [id number] Author: Tomasz Wisdom PT Service: ? Author Type: Physical Therapist Type: Progress Notes Filed: 01/28/2023 12:08 PM Note Text: Episode Visit Count: 2 Therapist That Will Accept/Oversee The Plan Of Care: Tomasz Wisdom PT. Start of Care Date: 01/26/23 Onset Date: 01/24/23 Patient Identified by Name and Date of : Yes REHABILITATION AND SPORTS THERAPY PHYSICAL THERAPY TREATMENT NOTE ASSESSMENT: Gregory Barrera tolerated the session with fatigue, expected muscle soreness, and decreased R Knee Stiffness. He demonstrated slight improvements in R Knee PROM. The patient will continue to benefit from ongoing skilled physical therapy to progress toward set goals and to continue with post-operative protocol. PLAN FOR NEXT VISIT: Knee Flexion and Extension AROM/AAROM/PROM; quad strengthening. possible manual patella mobs. SUBJECTIVE: Patient reports increased anterior/lateral pain today in R Knee; 4 days post-op today; patient reports really fatigued/sore from HEP, however completing them 1-2x a day. Continued ambulation with FWW. Pain: Pain Pain Level: 10 Pain Location: Knee - Right Description: Aching, Sore Frequency: Continuous Post Treatment Pain Post Treatment Pain Location: Knee - Right Post Treatment Pain Description: Sore Post Treatment Symptoms: Feels less stiff. OBJECTIVE MEASURES WITH LEVEL OF FUNCTION: Knee Observations R Ecchymosis : Lateral R Knee Bruising R Incision: Appropriate healing, well-approximated, no drainage. LE AROM R Knee Extension: -4 Degrees R Knee Flexion: 82 Degrees LE PROM R Knee Extension: -2 Degrees R Knee Flexion: 92 Degrees TREATMENT: Therapeutic Exercise: 1: R Quad Sets: 3x10, 5 holds. 2: R Heel Slides AAROM w/ Strap: 2x15, 1 hold. 3: R Knee-Extension Holds: 4 Minutes, with prop under ankle. 4: R Ankle Circles: 2x10 Cw/Ccw. 5: R Ankle Pumps: 2x20. 6: R Ankle Circles: 2x10 Cw/Ccw. 7: Reviewed HEP; advised patient to lay off LAQ AND SAQ currently till seen Tuesday/in 3 days in PT; patient advised to rest AND recover the rest of the night. Skilled Intervention: Patient was educated in proper exercise technique and purpose for exercises. Skilled judgment was used in selection of appropriate interventions. Correct performance of therapeutic exercises was facilitated with verbal, visual, and tactile cuing. Patient education as noted. Manual Therapy: 1: Manual knee flexion/extension PROM gentle overpressure in sittinx12 w/ 3-5 sec hold. Skilled Intervention: Manual skills to improve joint mobility, ROM, and decrease pain. Utilized anatomy knowledge of the therapist, and assessment of patient's response to intervention. Modalities: E-Stim Attended/TENS (Direct 1:1 contact, educated to patient purpose of modality following his R TKA; edcuated on HEP, and what is considered normal/not normal following his procedure.) Body Region Treated - E-Stim Attended/TENS: L Knee Patient Position: Supine Current: On/Off = 10/50; Frq: 40pps; Phase Duration 250uS; Ramp 2-sec. Channels: 1 Intensity: 20.0mA Minutes: 12 Skilled Intervention: Proper administration and selection of modality based on clinical presentation, deficits, and needs. Patient response monitored throughout treatment. Billing Therapeutic Exercise Treatment Minutes: 34 Manual TherapyTreatment Minutes: 10 E- Stim Attended/TENS Treatment Minutes: 10 Skilled Treatment Time Minutes (timed and untimed codes): 54 Total Session Time (minutes): 54 Session Start Time : 1016 Session Stop Time : 1110 Tomasz Wisdom, PT [facility] 01-28-2023 History of Present illness Narrative Episode Visit Count: 2 Therapist That Will Accept/Oversee The Plan Of Care: Tomasz Wsidom PT. Start of Care Date: 01/26/23 Onset Date: 01/24/23 Patient Identified by Name and Date of : Yes REHABILITATION AND SPORTS THERAPY PHYSICAL THERAPY TREATMENT NOTE ASSESSMENT: Gregory Barrera tolerated the session with fatigue, expected muscle soreness, and decreased R Knee Stiffness. He demonstrated slight improvements in R Knee PROM. The patient will continue to benefit from ongoing skilled physical therapy to progress toward set goals and to continue with post-operative protocol. PLAN FOR NEXT VISIT: Knee Flexion and Extension AROM/AAROM/PROM; quad strengthening. possible manual patella mobs. SUBJECTIVE: Patient reports increased anterior/lateral pain today in R Knee; 4 days post-op today; patient reports really fatigued/sore from HEP, however completing them 1-2x a day. Continued ambulation with FWW. Pain: Pain Pain Level: 10 Pain Location: Knee - Right Description: Aching, Sore Frequency: Continuous Post Treatment Pain Post Treatment Pain Location: Knee - Right Post Treatment Pain Description: Sore Post Treatment Symptoms: Feels less stiff. OBJECTIVE MEASURES WITH LEVEL OF FUNCTION: Knee Observations R Ecchymosis : Lateral R Knee Bruising R Incision: Appropriate healing, well-approximated, no drainage. LE AROM R Knee Extension: -4 Degrees R Knee Flexion: 82 Degrees LE PROM R Knee Extension: -2 Degrees R Knee Flexion: 92 Degrees TREATMENT: Therapeutic Exercise: 1: R Quad Sets: 3x10, 5 holds. 2: R Heel Slides AAROM w/ Strap: 2x15, 1 hold. 3: R Knee-Extension Holds: 4 Minutes, with prop under ankle. 4: R Ankle Circles: 2x10 Cw/Ccw. 5: R Ankle Pumps: 2x20. 6: R Ankle Circles: 2x10 Cw/Ccw. 7: Reviewed HEP; advised patient to lay off LAQ & SAQ currently till seen Tuesday/in 3 days in PT; patient advised to rest & recover the rest of the night. Skilled Intervention: Patient was educated in proper exercise technique and purpose for exercises. Skilled judgment was used in selection of appropriate interventions. Correct performance of therapeutic exercises was facilitated with verbal, visual, and tactile cuing. Patient education as noted. Manual Therapy: 1: Manual knee flexion/extension PROM gentle overpressure in sittinx12 w/ 3-5 sec hold. Skilled Intervention: Manual skills to improve joint mobility, ROM, and decrease pain. Utilized anatomy knowledge of the therapist, and assessment of patient's response to intervention. Modalities: E-Stim Attended/TENS (Direct 1:1 contact, educated to patient purpose of modality following his R TKA; edcuated on HEP, and what is considered normal/not normal following his procedure.) Body Region Treated - E-Stim Attended/TENS: L Knee Patient Position: Supine Current: On/Off = 10/50; Frq: 40pps; Phase Duration 250uS; Ramp 2-sec. Channels: 1 Intensity: 20.0mA Minutes: 12 Skilled Intervention: Proper administration and selection of modality based on clinical presentation, deficits, and needs. Patient response monitored throughout treatment. Billing Therapeutic Exercise Treatment Minutes: 34 Manual TherapyTreatment Minutes: 10 E- Stim Attended/TENS Treatment Minutes: 10 Skilled Treatment Time Minutes (timed and untimed codes): 54 Total Session Time (minutes): 54 Session Start Time : 1016 Session Stop Time : 1110 Tomasz Wisdom PT documented in this encounter [facility] [place] 01-26-2023 Note HNO ID: [id number] Author: Tomasz Wisdom PT Service: ? Author Type: Physical Therapist Type: Progress Notes Filed: 01/26/2023 3:16 PM Note Text: Episode Visit Count: 1 Therapist That Will Accept/Oversee The Plan Of Care: Tomasz Wisdom PT. Start of Care Date: 01/26/23 Onset Date: 01/24/23 Patient Identified by Name and Date of : Yes REHABILITATION AND SPORTS THERAPY PHYSICAL THERAPY EVALUATION PLAN OF CARE: Assessment: Gregory Barrera presents with post-op status of R TKA on 01/24/23 (2 days ago) with surgeon Dr. Craig. Patient with impairments and deficits that currently interfere with rising from a chair, standing, walking, walking in the community, stair negotiation, physical activities, recreational activities, squatting, working .He presents with impairments in ADL's, gait, independence in exercise, joint mobility, overall function, range of motion, soft tissue healing, strength, symptom management, and tissue tenderness. Patient did not complete the PROMIS? (Patient Reported Outcome Measures Information System). Prognosis for therapy is Good due to: current objective clinical presentation, within-session changes, good support system/ coping skills . He will benefit from skilled therapy services to meet the goals established for this plan of care as noted below. Goals for Episode of Care: created on 01/26/23 through 04/06/23 [place] in home exercise program 2.Patient will decrease pain rating by 2 points to meet minimal clinical important difference for numeric pain rating scale. Patient will increase active ROM of R knee to 0-135 degrees to allow the patient to improve walking in the community, stair navigation as well as performance of occupation demands. Patient will demonstrate increase in RLE strength to 5/5 during manual muscle testing in order to improve function for home management tasks, leisure/recreation skills, light to heavy functional tasks, job demands and prior functional tasks. Normal gait without use of an assistive device Reciprocal stair negotiation. Patient will report no pain/symptoms with walking. Patient Goals: Improve motion and strength, decrease pain and return to PLOF. Be able to begin exercising. Planned Interventions, Frequency, and Duration: Current Frequency: 2x/week Duration: 8 weeks Total Number of Visits Planned: 16 Planned Treatment Interventions: Therapeutic exercise (98362), Neuromuscular re-education (85548), Manual therapy (42484), Therapeutic activities (93655), Self-assisted management (38105), Gait Training (63186), Patient/Family/Caregiver Education, Body Mechanics Training, Functional training PLAN FOR NEXT VISIT: Knee Flexion and Extension AROM/AAROM/PROM; quad strengthening. Manual patella mobs. Patient demonstrates good understanding of plan of care and treatment. The above goals and plan of care were discussed and agreed upon by patient/family. SUBJECTIVE: Patient with R TKA [address] Craig; states he has been dealing with pain in the R Knee for the last 20 years, worse in the last 5-6 years; has had multiple injections without relief, denies issue with L Knee; currently has been doing ankle pumps, glute sets, quad set and heel slides. Reports currently pain 6/10 pain in the anterior knee. Post-op appointment on 02/10/23. Patient Goals: Improve motion and strength, decrease pain and return to PLOF. Be able to begin exercising. Functional Limitations: rising from a chair, standing, walking, walking in the community, stair negotiation, physical activities, recreational activities, squatting, working Prior Level of Function: Independent without limitations Relevant History Past Relevant Medical Conditions: Hypertension, Comments Relevant Medical Conditions Comments: CAD, HLD, RA. 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 Recreation / Current Exercise: None currently. Hobbies / Interests: Golfing. Home Environment Patient Lives With: Family Assistance Available: PRN Home Type: [place] Entry To Home: Stairs, With Rail Number Of Stairs Into Home: 3 Tub/Shower Type: Walk-in with seat. Laundry: Spouse to complete. Equipment Owned: Cane, Walker- Wheeled Intake Information: Prescription present Previous Treatment: NSAIDs , Injections Falls Interview: No positive findings with falls interview Pain: Pain Pain Level: 7 Pain Location: Knee - Right Description: Aching, Sore Frequency: Continuous Post Treatment Pain Post Treatment Pain Level: No Change Post Treatment Pain Location: Knee - Right Post Treatment Pain Description: Sore Post Treatment Symptoms: Increased soreness following increased activity. PROMIS Scales T-scores: mean of general population = 50. 5 points is clinically meaningfully difference Percentiles provide an indication of how the patient's score ranks in rel (more content not included)... [facility] 01-26-2023 History of Present illness Narrative Episode Visit Count: 1 Therapist That Will Accept/Oversee The Plan Of Care: Tomasz Wisdom PT. Start of Care Date: 01/26/23 Onset Date: 01/24/23 Patient Identified by Name and Date of : Yes REHABILITATION AND SPORTS THERAPY PHYSICAL THERAPY EVALUATION PLAN OF CARE: Assessment: Gregory Barrera presents with post-op status of R TKA on 01/24/23 (2 days ago) with surgeon Dr. Craig. Patient with impairments and deficits that currently interfere with rising from a chair, standing, walking, walking in the community, stair negotiation, physical activities, recreational activities, squatting, working .He presents with impairments in ADL's, gait, independence in exercise, joint mobility, overall function, range of motion, soft tissue healing, strength, symptom management, and tissue tenderness. Patient did not complete the PROMIS (Patient Reported Outcome Measures Information System). Prognosis for therapy is Good due to: current objective clinical presentation, within-session changes, good support system/ coping skills . He will benefit from skilled therapy services to meet the goals established for this plan of care as noted below. Goals for Episode of Care: created on 01/26/23 through 04/06/23 [place] in home exercise program 2.Patient will decrease pain rating by 2 points to meet minimal clinical important difference for numeric pain rating scale. Patient will increase active ROM of R knee to 0-135 degrees to allow the patient to improve walking in the community, stair navigation as well as performance of occupation demands. Patient will demonstrate increase in RLE strength to 5/5 during manual muscle testing in order to improve function for home management tasks, leisure/recreation skills, light to heavy functional tasks, job demands and prior functional tasks. Normal gait without use of an assistive device Reciprocal stair negotiation. Patient will report no pain/symptoms with walking. Patient Goals: Improve motion and strength, decrease pain and return to PLOF. Be able to begin exercising. Planned Interventions, Frequency, and Duration: Current Frequency: 2x/week Duration: 8 weeks Total Number of Visits Planned: 16 Planned Treatment Interventions: Therapeutic exercise (66152), Neuromuscular re-education (16012), Manual therapy (01445), Therapeutic activities (22741), Self-assisted management (15813), Gait Training (94213), Patient/Family/Caregiver Education, Body Mechanics Training, Functional training PLAN FOR NEXT VISIT: Knee Flexion and Extension AROM/AAROM/PROM; quad strengthening. Manual patella mobs. Patient demonstrates good understanding of plan of care and treatment. The above goals and plan of care were discussed and agreed upon by patient/family. SUBJECTIVE: Patient with R TKA [address] Craig; states he has been dealing with pain in the R Knee for the last 20 years, worse in the last 5-6 years; has had multiple injections without relief, denies issue with L Knee; currently has been doing ankle pumps, glute sets, quad set and heel slides. Reports currently pain 6/10 pain in the anterior knee. Post-op appointment on 02/10/23. Patient Goals: Improve motion and strength, decrease pain and return to PLOF. Be able to begin exercising. Functional Limitations: rising from a chair, standing, walking, walking in the community, stair negotiation, physical activities, recreational activities, squatting, working Prior Level of Function: Independent without limitations Relevant History Past Relevant Medical Conditions: Hypertension, Comments Relevant Medical Conditions Comments: CAD, HLD, RA. 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 Recreation / Current Exercise: None currently. Hobbies / Interests: Golfing. Home Environment Patient Lives With: Family Assistance Available: PRN Home Type: [place] Entry To Home: Stairs, With Rail Number Of Stairs Into Home: 3 Tub/Shower Type: Walk-in with seat. Laundry: Spouse to complete. Equipment Owned: Cane, Walker- Wheeled Intake Information: Prescription present Previous Treatment: NSAIDs , Injections Falls Interview: No positive findings with falls interview Pain: Pain Pain Level: 7 Pain Location: Knee - Right Description: Aching, Sore Frequency: Continuous Post Treatment Pain Post Treatment Pain Level: No Change Post Treatment Pain Location: Knee - Right Post Treatment Pain Description: Sore Post Treatment Symptoms: Increased soreness following increased activity. PROMIS Scales T-scores: mean of general population = 50. 5 points is clinically meaningfully difference Percentiles provide an indication of how the patient's score ranks in relation to the general population. Higher percentile rankings indicate better function/quality of life. 50th percentile is the average of the general population and indicates half of respondents had a worse score. OBJECTIVE MEASURES WITH LEVEL OF FUNCTION: Knee Observations R Knee Presents with: Swelling, Ecchymosis, Incision R Swelling: Global R Knee Swelling due to 2-day post-op status. R Ecchymosis : Lateral R Knee Bruising R Incision: Appropriate healing, well-approximated, no drainage. R Circumference 6 inches above mid-patella (inches): 21.75 inches R Circumference mid patella (inches): 17 inches R Circumference 6 inches below mid-patella (inches): 16 inches L Circumference 6 inches above mid-patella (inches): 21 inches L Circumference mid patella (inches): 16 inches L Circumference 6 inches below mid-patella (inches): 16 inches R Knee Palpation Tenderness: (Anterior Knee.) LE AROM R Knee Extension: -4 Degrees R Knee Flexion: 80 Degrees LE PROM R Knee Extension: -1 Degrees R Knee Flexion: 90 Degrees LE Strength R LE Strength: Not Measured Objectively due to Acute Post-Op status. L LE Strength: Grossly 5/5 Gait Weight Bearing Status: FWB Gait: Independent Gait Device: Wheeled Walker Gait Observation: Patient with antalgic gait, decreased angelic and gait speed, decreased R knee flexion during stance and swing phase, decreased time in stance phase on R. Education: Education Learning/educational needs: Procedure / Surgery, Health promotion, Safety, Home exercise program, Plan of Care, Gait Training TREATMENT: PT Treatment Interventions: Therapeutic Exercise, Self-Detention Management, Manual Therapy Evaluation Therapeutic Exercise: 1: *R Quad Sets: 2x10, 5 holds. (1/2 bolster under ankle) 2: *R Heel Slides AAROM w/ Strap: 1x15, 1 hold. 3: *R SAQ: 1x12. 4: *R LAQ: 1x10. 5: *R Ankle Pumps: 2x20. 6: *Education in ankle circles, ankle alphabets, glute sets for continued circulation and clot prevention. Education in knee-ext gravity holds as well. 7: *Discussed exercises with patient and spouse, educated on positioning during exercises, parameters and purpose of. Handout provided. Skilled Intervention: Patient was educated in proper exercise technique and purpose for exercises. Reviewed and educated patient on additions/changes for home exercise program as above (*). Skilled judgment was used in selection of appropriate interventions. Provided written instruction for home exercise program to facilitate proper performance and compliance. Correct performance of therapeutic exercises was facilitated with verbal, visual, and tactile cuing. Manual Therapy: 1: Manual knee flexion/extension PROM gentle overpressure in [id number] w/ 3-5 sec hold. Skilled Intervention: Manual skills to improve joint mobility, ROM, and decrease pain. Utilized anatomy knowledge of the therapist, and assessment of patient's response to intervention. Self-Detention Management: 1: *Direct education to the patient and his spouse on the plan of care, prognosis, HEP and importance of exercises in helping patient reach his goals. 2: *Education to not prop anything under the R Knee unless completing R SAQ exercise. Explanation of why not to put anything under the knee due to it going against achieving complete extension/felxion contractures. 3: *Discussion and education regarding continued compression and icing of the R Knee for inflammation control. Skilled Intervention: Skilled judgment in the selection of proper modification for activity of daily living/home management based on clinical presentation, deficits, and needs. Reviewed patient specific diagnosis in relation to activities of daily living/home management. Activity progression based on professional judgement. Billing * Evaluation Low Complexity: 1 Unit Therapeutic Exercise Treatment Minutes: 20 Manual TherapyTreatment Minutes: 10 Self-Care/Home Management Treatment Minutes: 10 Skilled Treatment Time Minutes (timed and untimed codes): 55 Total Session Time (minutes): 55 Session Start Time : 1030 Session Stop Time : 1125 Tomasz Wisdom PT documented in this encounter [facility] [place] 12-30-2022 Note HNO ID: [id number] Author: Suraj King II, OD Service: ? 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 Stable glasses power. Recheck in 1 year. I have confirmed and edited as necessary the relevant ophthalmic history, ROS, and the neuro exam findings as obtained by others. I have seen and examined Gregory Barrera. I have discussed the case and the management of this patient's care with the Resident/Fellow, if applicable. I also have reviewed and agree with the assessment and plan as stated above and agree with all of its relevant components. Suraj King II, OD [facility] 12-30-2022 History of Present illness Narrative Assessment and Plan H52.4 Presbyopia (primary encounter diagnosis) H52.222 Regular astigmatism, left eye Comment: Good ocular health. Stable glasses power. Recheck in 1 year. I have confirmed and edited as necessary the relevant ophthalmic history, ROS, and the neuro exam findings as obtained by others. I have seen and examined Gregory Barrera. I have discussed the case and the management of this patient's care with the Resident/Fellow, if applicable. I also have reviewed and agree with the assessment and plan as stated above and agree with all of its relevant components. Suraj King II, OD documented in this encounter [facility] [place] 12-30-2022 Instructions Suraj King II, OD - 12/30/2022 9:49 AM EDT Assessment and Plan H52.4 Presbyopia (primary encounter diagnosis) H52.223 Regular astigmatism, bilateral Comment: Shift in glasses power. Update to maximize visual performance. Otherwise good ocular health. Recheck in one year. I have confirmed and edited as necessary the relevant ophthalmic history, ROS, and the neuro exam findings as obtained by others. I have seen and examined Gregory Barrera. I have discussed the case and the management of this patient's care with the Resident/Fellow, if applicable. I also have reviewed and agree with the assessment and plan as stated above and agree with all of its relevant components. Suraj King II OD documented in this encounter [facility] [place] 12-27-2022 Note HNO ID: [id number] Author: Scooter Esquivel MD Service: ? Author Type: Physician Type: Progress Notes Filed: 12/27/2022 7:45 PM Note Text: Patient presents with: Pre-Op Exam HPI: Patient presents today for office visit for preop clearance. Patient presents for preop clearance. Upcoming surgery for: right total knee. Hx of previous anesthesia problems: No. Family hx of anesthesia problems: No. Current signs of infection: No. Chest pain: No. Was cleared recently by cardiology for surgery. Shortness of breath: No. Known sleep apnea: yes, wears cpap. . Hx of clotting issues: No. Current bleeding or bruising: No. Mobic is stopped. Is still on asa. MEDICATIONS: Current Outpatient Medications Medication Sig atorvastatin (LIPITOR) 80 mg tablet TAKE ONE TABLET BY MOUTH EVERY NIGHT AT BEDTIME losartan (COZAAR) 50 mg tablet TAKE ONE TABLET BY MOUTH DAILY isosorbide mononitrate ER (IMDUR) 30 mg 24 hr tablet TAKE ONE TABLET BY MOUTH DAILY carvedilol (COREG) 3.125 mg tablet TAKE ONE TABLET BY MOUTH TWICE DAILY WITH MEALS. buPROPion XL (WELLBUTRIN XL) 300 mg 24 hr tablet Take 1 tablet by mouth once daily. omeprazole (PRILOSEC) 20 mg capsule Take 1 capsule by mouth once daily. CPAP NEW SET UP: Settings 7 - 15 cm H2O, suitable mask per pt preference, chin strap, head gear, humidity, tubing, lifetime supplies. G47.33 ANÍBAL aspirin 81 mg chewable tablet Take 1 tablet by mouth once daily. meloxicam (MOBIC) 15 mg tablet Take 15 mg by mouth once daily. (Patient not taking: Reported on 12/27/2022) albuterol HFA (PROVENTIL HFA) 90 mcg/actuation inhaler Inhale 2 Puffs as instructed every 4 hours as needed for wheezing/shortness of breath. GLUCOSAM AND CHONDROIT-MV AND MIN3 (GLUCOSAMINE [id number] ORAL) Take 2 tablets by mouth once daily. (Patient not taking: Reported on 12/27/2022) No current facility-administered medications for this visit. ALLERGIES: ALLERGIES Allergen Reactions Ampicillin hives Lisinopril Cough Seasonal Allergies Cough Patient takes Zyrtec as needed. PAST MEDICAL HISTORY Diagnosis Date Acute gastritis Coronary artery disease Hyperlipidemia Hypertension ANÍBAL (obstructive sleep apnea) [facility] in [place] Rheumatoid arthritis([id number]) PAST SURGICAL HISTORY Procedure Laterality Date COLONOSCOPY 08/19/2021 consider repeat in 5 years based on prep EGD W/O [facility] SPEC VARICIES INJ 08/19/2021 epiglottis nodule. GERD and gastritis PAST SURGICAL HISTORY OF Right 04/1994 4th finger repair RPR 1ST INGUN HRNA AGE 6 MO-5 YRS INCARCERATED 09/1975 FAMILY HISTORY Problem Relation Age of Onset Heart Father other (Heart attack) Father at around 60 years of age Diabetes Mother Hypertension Sister Diabetes Maternal Grandmother Heart Maternal Grandfather several heart attacks Hypertension Paternal Grandfather Social History Tobacco Use Smoking status: Former Packs/day: .5 Types: Cigarettes Smokeless tobacco: Former Vaping Use Vaping Use: Never used Substance Use Topics Alcohol use: Yes Alcohol/week: 2.6 standard drinks of alcohol Types: 2 Mixed Drinks per week Comment: 1 mixed drink a month Drug use: No Reviewed current medications, allergies, past medical history, surgical history, family history and social history today. REVIEW OF SYSTEMS All other reviewed and negative other than HPI. HEALTH MAINTENANCE: Reviewed health maintenance issues today and recommended the following in detail. Hepatitis B Vaccine(1 of 3 - 3-dose series) Never done HIV Screening Never done BP Controlled (<130/80) Never done Shingrix Vaccine(1 of 2) Never done Covid-19 Vaccine(3 - Pfizer series) due on 05/22/2021 Depression Assessment Never done Influenza Vaccine(1) due on 12/10/2022 VITALS: Wt 110.7 kg (244 lb) BMI 38.80 kg/m? Last 4 Encounter Wt Readings: Date: Wt: 12/27/2022 110.7 kg (244 lb) 10/19/2022 108.4 kg (239 lb) 04/03/2022 110.2 kg (243 lb) 10/26/2021 106.6 kg (235 lb) PHYSICAL EXAMINATION: General appearance: Well appearing, alert, in no acute distress, well-hydrated, well nourished. Skin: Skin color, texture, turgor normal, no suspicious rashes or lesions Head: Normocephalic, no masses, lesions, tenderness or abnormalities Neck: Supple, no adenopathy; thyroid symmetric, normal size, no bruitsLungs: Lungs clear to auscultation. No wheezing, rhonchi, rales Heart: RRR without murmur, gallop, or rubs. No ectopy Abdomen: Normal abdominal exam, Abdomen soft, non-tender. Bowel sounds normal. No masses, organomegaly Extremities: No deformities, edema, skin discoloration, clubbing or cyanosis. Good capillary refill. ASSESSMENT/PLAN: 1. Primary osteoarthritis of right knee - ICD9: 715.16, ICD10: M17.11 (primary diagnosis) - has already had cardiac clearance and ekg. Check labs. Has aníbal. Dvt prevention per ortho. Medically is maximized for surgery. Ok to have done from my sta (more content not included)... [facility] 12-27-2022 History of Present illness Narrative Patient presents with: Pre-Op Exam HPI: Patient presents today for office visit for preop clearance. Patient presents for preop clearance. Upcoming surgery for: right total knee. Hx of previous anesthesia problems: No. Family hx of anesthesia problems: No. Current signs of infection: No. Chest pain: No. Was cleared recently by cardiology for surgery. Shortness of breath: No. Known sleep apnea: yes, wears cpap. . Hx of clotting issues: No. Current bleeding or bruising: No. Mobic is stopped. Is still on asa. MEDICATIONS: Current Outpatient Medications Medication Sig atorvastatin (LIPITOR) 80 mg tablet TAKE ONE TABLET BY MOUTH EVERY NIGHT AT BEDTIME losartan (COZAAR) 50 mg tablet TAKE ONE TABLET BY MOUTH DAILY isosorbide mononitrate ER (IMDUR) 30 mg 24 hr tablet TAKE ONE TABLET BY MOUTH DAILY carvedilol (COREG) 3.125 mg tablet TAKE ONE TABLET BY MOUTH TWICE DAILY WITH MEALS. buPROPion XL (WELLBUTRIN XL) 300 mg 24 hr tablet Take 1 tablet by mouth once daily. omeprazole (PRILOSEC) 20 mg capsule Take 1 capsule by mouth once daily. CPAP NEW SET UP: Settings 7 - 15 cm H2O, suitable mask per pt preference, chin strap, head gear, humidity, tubing, lifetime supplies. G47.33 ANÍBAL aspirin 81 mg chewable tablet Take 1 tablet by mouth once daily. meloxicam (MOBIC) 15 mg tablet Take 15 mg by mouth once daily. (Patient not taking: Reported on 12/27/2022) albuterol HFA (PROVENTIL HFA) 90 mcg/actuation inhaler Inhale 2 Puffs as instructed every 4 hours as needed for wheezing/shortness of breath. GLUCOSAM & CHONDROIT-MV & MIN3 (GLUCOSAMINE &[id number] ORAL) Take 2 tablets by mouth once daily. (Patient not taking: Reported on 12/27/2022) No current facility-administered medications for this visit. ALLERGIES: ALLERGIES Allergen Reactions Ampicillin hives Lisinopril Cough Seasonal Allergies Cough Patient takes Zyrtec as needed. PAST MEDICAL HISTORY Diagnosis Date Acute gastritis Coronary artery disease Hyperlipidemia Hypertension ANÍBAL (obstructive sleep apnea) [facility] in [place] Rheumatoid arthritis([id number]) PAST SURGICAL HISTORY Procedure Laterality Date COLONOSCOPY 08/19/2021 consider repeat in 5 years based on prep EGD W/O [facility] SPEC VARICIES INJ 08/19/2021 epiglottis nodule. GERD and gastritis PAST SURGICAL HISTORY OF Right 04/1994 4th finger repair RPR 1ST INGUN HRNA AGE 6 MO-5 YRS INCARCERATED 09/1975 FAMILY HISTORY Problem Relation Age of Onset Heart Father other (Heart attack) Father at around 60 years of age Diabetes Mother Hypertension Sister Diabetes Maternal Grandmother Heart Maternal Grandfather several heart attacks Hypertension Paternal Grandfather Social History Tobacco Use Smoking status: Former Packs/day: .5 Types: Cigarettes Smokeless tobacco: Former Vaping Use Vaping Use: Never used Substance Use Topics Alcohol use: Yes Alcohol/week: 2.6 standard drinks of alcohol Types: 2 Mixed Drinks per week Comment: 1 mixed drink a month Drug use: No Reviewed current medications, allergies, past medical history, surgical history, family history and social history today. REVIEW OF SYSTEMS All other reviewed and negative other than HPI. HEALTH MAINTENANCE: Reviewed health maintenance issues today and recommended the following in detail. Hepatitis B Vaccine(1 of 3 - 3-dose series) Never done HIV Screening Never done BP Controlled (<130/80) Never done Shingrix Vaccine(1 of 2) Never done Covid-19 Vaccine(3 - Pfizer series) due on 05/22/2021 Depression Assessment Never done Influenza Vaccine(1) due on 12/10/2022 VITALS: Wt 110.7 kg (244 lb) BMI 38.80 kg/m Last 4 Encounter Wt Readings: Date: Wt: 12/27/2022 110.7 kg (244 lb) 10/19/2022 108.4 kg (239 lb) 04/03/2022 110.2 kg (243 lb) 10/26/2021 106.6 kg (235 lb) PHYSICAL EXAMINATION: General appearance: Well appearing, alert, in no acute distress, well-hydrated, well nourished. Skin: Skin color, texture, turgor normal, no suspicious rashes or lesions Head: Normocephalic, no masses, lesions, tenderness or abnormalities Neck: Supple, no adenopathy; thyroid symmetric, normal size, no bruitsLungs: Lungs clear to auscultation. No wheezing, rhonchi, rales Heart: RRR without murmur, gallop, or rubs. No ectopy Abdomen: Normal abdominal exam, Abdomen soft, non-tender. Bowel sounds normal. No masses, organomegaly Extremities: No deformities, edema, skin discoloration, clubbing or cyanosis. Good capillary refill. ASSESSMENT/PLAN: 1. Primary osteoarthritis of right knee - ICD9: 715.16, ICD10: M17.11 (primary diagnosis) - has already had cardiac clearance and ekg. Check labs. Has aníbal. Dvt prevention per ortho. Medically is maximized for surgery. Ok to have done from my standpoint. - BASIC METABOLIC PNL - CBC + DIFF 2. Encounter for immunization - ICD9: V03.89, ICD10: Z23 - INFLUENZA VACCINE, AGE 6 MO - 64 YR, QUADRIVALENT (AFLURIA, FLULAVAL, FLUZONE) 3. Hyperlipidemia, unspecified hyperlipidemia type - ICD9: 272.4, ICD10: E78.5 - stable. - BASIC METABOLIC PNL - CBC + DIFF 4. Primary hypertension - ICD9: 401.9, ICD10: I10 - Controlled - Continue current medications - BASIC METABOLIC PNL - CBC + DIFF 5. ANÍBAL (obstructive sleep apnea) - ICD9: 327.23, ICD10: G47.33 - continue cpap. 6. Hyperglycemia - ICD9: 790.29, ICD10: R73.9 - recheck labs. - HGB A1C Scooter Esquivel RTO in six months and prn. documented in this encounter [facility] [place] 10-19-2022 Note HNO ID: [id number] Author: Caroline Romo MD Service: ? Author Type: Physician Type: Progress Notes Filed: 10/19/2022 4:46 PM Note Text: SUBJECTIVE: Gregory Barrera is a 51 year old male. Patient presents with: [facility] Follow Up: Stress test Gregory Barrera was referred by Caroline Romo HPI: Mr. Barrera is a 51 year old male with PMH of HTN, Dyslipidemia, Prediabetes, ANÍBAL, presented February 2015, [facility] with chest pain, pressure, tightness, radiated to jaw area, left arm, occurred while exercising on the Ellipitcal, duration of less than an hour, improved with nitro paste, ASA, Associated symptoms of diaphoresis, nausea, difficulty taking a deep breath, Denies palpitations, lightheadedness, dizziness, pre/syncopal episode, MASON, SOB, edema, fever, chills, abnormal bleeding. Patient states chest pain started last week but symptoms were not has significant. He has been experiencing chest pain intermittently while admitted at [facility]. DIAGNOSIS: 1. Chest Pain/R/O ACS: 2. Hypertension: 3. Dyslipidemia: -Lipid panel: 02-01-15: Tri, Chol:205, HDL:46, LDL: 134 4. ANÍBAL 5. Prediabetes: 6. H/O Gastritis: 7. H/O Tobacco Use. Patient evaluated/examined personally. Clinical cardiac exam unremarkable. Classical description of progressive exertional/crescendo angina, progressing to NSTEMI, in 47 year old male with moderate cardiac risk factor profile. Will proceed with catheter based evaluation. All risks, benefits, outcomes, approaches and alternatives discussed - agrees to proceed. Planned Procedure: Left Heart Catheterization with Possible PCI Primary Indication for Procedure: Angina, Unstable and Non-STEMI High Risk Features: History of Prior CABG: No History of Prior PCI: No Cardiomyopathy: No Anti-ischemic Meds in Past 2 Weeks: Beta blockers and Nitrates Ejection Fraction: None Risk Appropriateness: Angina Class in Past 2 Weeks: Class IV - Unable to carry on any physical activity without discomfort Stress Test Results: No stress test performed Cardiogenic Shock: No CHF in Past 2 Weeks: No Informed consent obtained. PROCEDURES: Left heart catheterization, selective coronary arteriogram and left ventriculogram. HEMODYNAMICS: LV pressure: 125/EDP 20. Aortic pressure: 119/72 mean 92. COMMENT: There was no gradient demonstrated from LV to aorta pullback. CORONARY ARTERIES: 1. LEFT MAIN: This is a large caliber, medium length, normal vessel. 2. LEFT ANTERIOR DESCENDING: This is a large caliber normal vessel, advancing to the apex with evidence of minimal intramuscular bridging. 3. CIRCUMFLEX: This is a large caliber vessel with evidence of a long segment of 60-80% stenosis from proximal to mid segment of the second small caliber obtuse marginal branch, with minimal change in segment caliber after 100 mcg of intracoronary nitroglycerin. 4. RIGHT CORONARY ARTERY: This is a large caliber, dominant normal vessel. LEFT VENTRICULOGRAM: This was obtained in the [place] projection only. The left ventricle does not appear dilated. There are no discrete regional wall motion abnormalities. Left ventricular ejection fraction is normal, estimated at 60%. The ascending aorta is normal in caliber. The aortic valve appears trileaflet. There is no evidence of mitral regurgitation. IN SUMMARY: 1. Moderate to severe long segment narrowing of proximal to mid second small obtuse marginal branch with minimal change with intra coronary nitroglycerin. 2. Normal left ventricular function with ejection fraction estimated at 60%. The patient underwent provocative nuclear testing, February 2015, to check the functional significance of the obtuse marginal stenosis. CONCLUSIONS: 1. Perfusion study: Abnormal. 2. There is mild (3% of LV mass) ischemia in the territory of the LCX (mid anterolateral and basal anterolateral segments). 3. No findings to suggest myocardial scar or hibernation. 4. Average functional capacity for age and gender. 5. Left ventricle is normal in size. The left ventricle systolic function is normal. 6. Right ventricle is normal in size. The right ventricle systolic function is normal. 7. The Stress LVEF is 61 %. 8. This is a low risk scan. On this basis, a medical/conservative management strategy was adopted. The patient underwent non-imaging maximal stress test, February 2017 and was able to achieve 12.2 METs, stage IV of the standard Lam protocol, with good functional capacity for age and gender. There were no ischemic electrocardiographic changes noted and the patient experienced no symptoms. Nuclear stress testing, March 2019, there was no evidence for provokable ischemia or previous myocardial scarring, with an ejection fraction of 60%. CARDIAC HISTORY: SYMPTOMS: Chest pain/discomfort: No, Palpitations:No, Arrhythmia: No Dyspnea: No, Dyspnea at rest: No, Nocturnal dyspnea: No Or (more content not included)... [facility] 10-19-2022 History of Present illness Narrative SUBJECTIVE: Gregory Barrera is a 51 year old male. Patient presents with: [facility] Follow Up: Stress test Gregory Barrera was referred by Caroline Romo HPI: Mr. Barrera is a 51 year old male with PMH of HTN, Dyslipidemia, Prediabetes, ANÍBAL, presented February 2015, [facility] with chest pain, pressure, tightness, radiated to jaw area, left arm, occurred while exercising on the Ellipitcal, duration of less than an hour, improved with nitro paste, ASA, Associated symptoms of diaphoresis, nausea, difficulty taking a deep breath, Denies palpitations, lightheadedness, dizziness, pre/syncopal episode, MASON, SOB, edema, fever, chills, abnormal bleeding. Patient states chest pain started last week but symptoms were not has significant. He has been experiencing chest pain intermittently while admitted at [facility]. DIAGNOSIS: 1. Chest Pain/R/O ACS: 2. Hypertension: 3. Dyslipidemia: -Lipid panel: 02-01-15: Tri, Chol:205, HDL:46, LDL: 134 4. ANÍBAL 5. Prediabetes: 6. H/O Gastritis: 7. H/O Tobacco Use. Patient evaluated/examined personally. Clinical cardiac exam unremarkable. Classical description of progressive exertional/crescendo angina, progressing to NSTEMI, in 47 year old male with moderate cardiac risk factor profile. Will proceed with catheter based evaluation. All risks, benefits, outcomes, approaches and alternatives discussed - agrees to proceed. Planned Procedure: Left Heart Catheterization with Possible PCI Primary Indication for Procedure: Angina, Unstable and Non-STEMI High Risk Features: History of Prior CABG: No History of Prior PCI: No Cardiomyopathy: No Anti-ischemic Meds in Past 2 Weeks: Beta blockers and Nitrates Ejection Fraction: None Risk Appropriateness: Angina Class in Past 2 Weeks: Class IV - Unable to carry on any physical activity without discomfort Stress Test Results: No stress test performed Cardiogenic Shock: No CHF in Past 2 Weeks: No Informed consent obtained. PROCEDURES: Left heart catheterization, selective coronary arteriogram and left ventriculogram. HEMODYNAMICS: LV pressure: 125/EDP 20. Aortic pressure: 119/72 mean 92. COMMENT: There was no gradient demonstrated from LV to aorta pullback. CORONARY ARTERIES: 1. LEFT MAIN: This is a large caliber, medium length, normal vessel. 2. LEFT ANTERIOR DESCENDING: This is a large caliber normal vessel, advancing to the apex with evidence of minimal intramuscular bridging. 3. CIRCUMFLEX: This is a large caliber vessel with evidence of a long segment of 60-80% stenosis from proximal to mid segment of the second small caliber obtuse marginal branch, with minimal change in segment caliber after 100 mcg of intracoronary nitroglycerin. 4. RIGHT CORONARY ARTERY: This is a large caliber, dominant normal vessel. LEFT VENTRICULOGRAM: This was obtained in the [place] projection only. The left ventricle does not appear dilated. There are no discrete regional wall motion abnormalities. Left ventricular ejection fraction is normal, estimated at 60%. The ascending aorta is normal in caliber. The aortic valve appears trileaflet. There is no evidence of mitral regurgitation. IN SUMMARY: 1. Moderate to severe long segment narrowing of proximal to mid second small obtuse marginal branch with minimal change with intra coronary nitroglycerin. 2. Normal left ventricular function with ejection fraction estimated at 60%. The patient underwent provocative nuclear testing, February 2015, to check the functional significance of the obtuse marginal stenosis. CONCLUSIONS: 1. Perfusion study: Abnormal. 2. There is mild (3% of LV mass) ischemia in the territory of the LCX (mid anterolateral and basal anterolateral segments). 3. No findings to suggest myocardial scar or hibernation. 4. Average functional capacity for age and gender. 5. Left ventricle is normal in size. The left ventricle systolic function is normal. 6. Right ventricle is normal in size. The right ventricle systolic function is normal. 7. The Stress LVEF is 61 %. 8. This is a low risk scan. On this basis, a medical/conservative management strategy was adopted. The patient underwent non-imaging maximal stress test, February 2017 and was able to achieve 12.2 METs, stage IV of the standard Lam protocol, with good functional capacity for age and gender. There were no ischemic electrocardiographic changes noted and the patient experienced no symptoms. Nuclear stress testing, March 2019, there was no evidence for provokable ischemia or previous myocardial scarring, with an ejection fraction of 60%. CARDIAC HISTORY: SYMPTOMS: Chest pain/discomfort: No, Palpitations:No, Arrhythmia: No Dyspnea: No, Dyspnea at rest: No, Nocturnal dyspnea: No Orthopnea: No, Diaphoresis: No, Dizziness: No, Syncope: No, Edema: No, Nocturia: No, Impaired exercise tolerance: No, Claudication:No CONDITIONS: Hypertension: Yes, Heart failure:No, [place] Heart Association Functional Classification: Class I, Atrial fibrillation:No, History of myocardial infarction/angina: Yes, History of CABG/PCI:No, Valvular heart disease: No, Cardiomyopathy: No, Aortic diseases: No, Peripheral vascular disease: No, History of cerebrovascular accident: No, History of pulmonary embolism No, History of DVT No. History of rheumatic fever: No, History of transient ischemic attacks: No, Congenital heart disease: No, Pericarditis: No, Pericardial Effusion: No CORONARY RISK FACTORS: Family history of coronary artery disease Yes: Family history CAD in a first degree relative father Premature onset: No, Tobacco use Yes:Tobacco use details: / ppd, Sedentary lifestyle Yes, Hypertension Yes, Hyperlipidemia Yes, Diabetes mellitus No, Obesity Yes, Peripheral vascular disease No. HISTORIES: FAMILY HISTORY Mother: Diabetes Father: other (Heart attack; at around 60 years of age) Maternal Grandmother: Diabetes Maternal Grandfather: Heart (several heart attacks) Paternal Grandfather: Hypertension PAST MEDICAL HISTORY Rheumatoid Arthritis(714.0) (Hcc) Acute Gastritis Hypertension Hyperlipidemia Aníbal (Obstructive Sleep Apnea) PAST SURGICAL HISTORY Repair Ing Hernia,6mo-5yr,[place] - 09/1975 Past Surgical History of - 04/1994 (4th finger repair) Tobacco Use: .5 packs/day Types: Cigarettes (wearing patch, quit 12/29/08) Alcohol Use: Yes (1 mixed drink a month) Occupation: [employer] ALLERGIES Ampicillin; Seasonal Allergies REVIEW OF SYSTEMS: Constitutional: Fatigue: No, Weight loss: No, Weight gain: No, Fever: No, Chills: No Eyes: Blurred or Reduced Vision:No Ears: Hearing Loss:No Nose,Throat: Epistaxis:No, Bleeding gums:No Respiratory: Dyspnea:No, Cough:No, Hemoptysis:No, Wheezing:No, Pleuritic pain:No, Sleep Apnea:No, COPD:No, Asthma:No Gastrointestinal: Hematemesis:No, Blood in stool:No, Abdominal pain:No, Nausea and/or vomiting:No Genitourinary: Dysuria:No, Hematuria:No, Renal insufficiency:No, Pregnancies:No, BPH:No Hematologic: Anemia:No, Bruises easily:No, Bleeds easily:No History of Cancer: No Musculoskeletal: Muscle pain:No, Arthritis/Arthralgia:No Skin: Rash:No, Pruritus:No Neurologic: Headache:No, Dizziness:No, Seizures:No, Dementia:No Psychiatric: Anxiety:No, Depression:No, Over the past 2 weeks have you felt down, depressed or hopeless?:No, Over the past 2 weeks have you felt little interest or pleasure in doing things?:No Endocrine: Polyphagia:No, Polydipsia:No, Polyuria:No, Goiter:No, Hyper/hypothyroidism:No, Dyslipidemia:No Allergic, Immunology: Urticaria:No, Collagen vascular disease:No Other: The rest of the review of systems is unremarkable and negative or non-contributory. OBJECTIVE: VITALS: Blood pressure 132/88, pulse 80, height 168.9 cm (5' 6.5 ), weight 108.4 kg (239 lb). PHYSICAL EXAMINATION: Physical examination unchanged from previous, see below. GENERAL APPEARANCE: Appears Healthy:Yes, Obese:Yes, Acute distress:No, Appearance consistent with age:Yes, Responds appropriately: Yes MENTAL STATUS: Alert:Yes, Cooperative:Yes, Pleasant:Yes, Affect: normal EYES: Conjunctiva/corneas normal:Yes, PERRL:Yes, Scleral icterus:No, Xanthelasma:No HEAD, NECK: Good oral hygiene:Yes, Oral mucosa normal:Yes, Jugular venous distention:No, Hepatojugular reflux:No, Thyromegaly:No, Carotid endarterectomy:No,Thyroidectomy :No RESPIRATORY:Chest movement symmetrical:Yes, Respiratory effort normal:Yes, Percussion of chest normal:Yes, Breath sounds normal:Yes, Crackles:No, Rales:No, Rhonchi:No, Wheezing:No, Pleural friction rub:No, Evidence of pacemaker/ICD:No, Median sternotomy scar:No, Sternal instability:No CARDIAC: [place] beat not localized, Cardiac thrill:No, Heart rate normal:Yes, Heart rhythm normal:Yes, S1 normal:Yes, S2 normal:Yes, S3 ausculated:No, S4 ausculated:No, Gallop ausculated:No, Heart murmur:No, Prosthetic valve click:No, Pericardial friction rub:No ABDOMINAL:Abdomen soft, non-tender. BS normal. No masses or organomegaly. and positive findings: Moderate obese VASCULAR/EXTREMITIES:Radial pulse normal:Yes, Carotid pulse normal:Yes, Carotid bruit:No, Abdominal aorta palpable:No, Abdominal aortic bruit:No, Femoral pulse normal:Yes, Femoral bruit:No, Dorsalis pedis pulse present:Yes, Posterior tibial pulse present:Yes, Popliteal pulse:Yes, Varicose veins:No, Leg edema:No, Pedal edema:No NEUROLOGIC: Grossly non-focal:Yes MUSCULOSKELETAL: Muscle strength normal:Yes, Joint range of motion normal:Yes SKIN: Clubbing:No, Cyanosis:No, Pallor:No, Diaphoresis:No, Stasis dermatitis/post phlebitic changes:No, Cutaneous xanthoma:No REVIEWED: ECG: No Echo: No Cath: YES As above Stress: YES as above PREVENTATIVE CARE: GENERAL: Advised to quit smoking. Provided tobacco use smoking cessation counseling. Discussed aspirin treatment. DIET/EXERCISE: Recommended weight loss. Discussed weight management stratagies. Recommended regular physical activity. Discussed low sodium diet. Discussed low cholesterol diet. PATIENT EDUCATION: Continue with medications as directed. Prescription risks and side effects discussed. Instructed on chest pain. ASSESSMENT/PLAN/RECOMMENDATIONS: The patient remained stable at today's visit, from a cardiac standpoint, with no suggestion of recurrent symptomatology. After reviewing his current medication regimen, in the setting of an excellent lipid profile, I see no reason to make any changes. The patient will follow with me in the office in 8 months and then in February 2024. The patient is scheduled to undergo both carpal tunnel surgery and total knee replacement surgery and may proceed with a low cardiac risk. Portions of the encounter note have been copied from a previous note, dated 08/14/2021, which has been updated where appropriate and reflects my current medical decision making from today. I spent a total of 35 minutes on the date of the service which included preparing to see the patient, [id number] patient care, completing clinical documentation, performing a medically appropriate examination, counseling and educating the patient/family/caregiver, and ordering medications, tests, or procedures. Nstemi (non-st elevated myocardial infarction) (hcc) (primary encounter diagnosis) Aníbal (obstructive sleep apnea) Essential hypertension, benign Coronary artery disease involving [place] coronary artery of [place] heart without angina pectoris Pre-op evaluation Caroline Romo MD documented in this encounter [facility] [place] 10-01-2022 Miscellaneous Notes Requested Prescriptions Signed Prescriptions Disp Refills atorvastatin (LIPITOR) 80 mg tablet 90 tablet 3 Sig: TAKE ONE TABLET BY MOUTH EVERY NIGHT AT BEDTIME Authorizing Provider: TIERRA BANEGAS losartan (COZAAR) 50 mg tablet 90 tablet 3 Sig: TAKE ONE TABLET BY MOUTH DAILY Authorizing Provider: TIERRA BANEGAS isosorbide mononitrate ER (IMDUR) 30 mg 24 hr tablet 90 tablet 3 Sig: TAKE ONE TABLET BY MOUTH DAILY Authorizing Provider: TIERRA BANEGAS carvedilol (COREG) 3.125 mg tablet 180 tablet 3 Sig: TAKE ONE TABLET BY MOUTH TWICE DAILY WITH MEALS. Authorizing Provider: TIERRA BANEGAS APRN.CNP October 01, 2022 7:35 AM Received request for refill of the following medications: Requested Prescriptions Pending Prescriptions Disp Refills atorvastatin (LIPITOR) 80 mg tablet [Pharmacy Med Name: Atorvastatin Calcium Oral Tablet 80 MG 80 MG Tablet] 30 tablet 0 Sig: TAKE ONE TABLET BY MOUTH EVERY NIGHT AT BEDTIME losartan (COZAAR) 50 mg tablet [Pharmacy Med Name: Losartan Potassium Oral Tablet 50 MG 50 MG Tablet] 30 tablet 0 Sig: TAKE ONE TABLET BY MOUTH DAILY isosorbide mononitrate ER (IMDUR) 30 mg 24 hr tablet [Pharmacy Med Name: Isosorbide Mononitrate ER Oral 30 MG Tablet Extended Release 24 Hour] 30 tablet 0 Sig: TAKE ONE TABLET BY MOUTH DAILY carvedilol (COREG) 3.125 mg tablet [Pharmacy Med Name: Carvedilol Oral Tablet 3.125 MG 3.125 MG Tablet] 90 tablet 0 Sig: TAKE ONE TABLET BY MOUTH TWICE DAILY WITH MEALS. Patient requested a 90 day refill. Pharmacy verified and updated accordingly. Patient was last seen in cardiology office: 08/14/2021. Upcoming appointment scheduled: 10/19/2022. Labs: Hemoglobin (g/dL) Date Value 05/22/2022 15.9 05/01/2021 15.3 Hematocrit (%) Date Value 05/22/2022 45.2 05/01/2021 43.9 WBC (k/uL) Date Value 05/22/2022 6.22 05/01/2021 6.61 Platelet Count (k/uL) Date Value 05/22/2022 244 05/01/2021 198 Creatinine Date Value Ref Range Status 05/22/2022 1.01 0.73 - 1.22 mg/dL Final 05/01/2021 0.94 0.73 - 1.22 mg/dL Final documented in this encounter [facility] [place] 09-17-2022 Miscellaneous Notes Received form from [facility] (Dr. Craig[facility]) requesting cardiac clearance from Dr. Romo for pt's upcoming total knee R arthroplasty on 11/15/2022. Pt was last seen by Dr. Romo 08/14/2021. Has upcoming appt 10/19/2022. Since it has been over a year since last appt, will present to Dr. Romo on the date of the upcoming appt to be addressed at that time. documented in this encounter [facility] [place] 07-16-2022 History of Present illness Narrative Gregory called today requesting all xray's and office notes. He will be seeing a primary care physician in [place]- Dr John Almodovar at the [facility] on 07-28-22 documented in this encounter [facility] 06-03-2022 History of Present illness Narrative Referral faxed to DR Garcia office in [place] documented in this encounter [facility] 06-01-2022 History of Present illness Narrative Associated Order(s): Tendon Sheath Injection: Flexor Tendon Sheath; LG Jt Injection/Arthrocentesis: R knee Post-Procedure Diagnose(s): Trigger middle finger of right hand; Primary osteoarthritis of right knee [facility] [address] [facility] [address] [facility] [id number] Chief Complaint Patient presents with Right Hand - Pain Right Knee - Pain Gregory Barrera returns to the office today for an injection to the right knee as well as the right hand, middle finger. I last saw him in September 2021 and injected both the middle finger right knee. Today he reports increased pain in the right knee over the last couple of months. He did report the injection did seem to give him good pain relief. He also reports that the injection for the middle finger also provided him with good pain relief. He denies any injury to either of these 2 areas. He is also complaining of multiple joint pains. He reports shoulder pain other joints of the right hand are painful. During discussion he had commented that he had been previously diagnosed with rheumatoid arthritis from the [facility] about 19 years ago. He also states that he was placed on some medications for this but did not like the way that they made him feel so he had stopped taking them. He has not received any type of treatment for this since. He continues to take oral anti-inflammatory medications, OTC pain medications but they are not providing him with adequate relief for his polyarthralgia. The patient's past medical history, surgical history, social history, family history, medications and allergies were reviewed with the patient today and are available in the chart for further review. Allergies Allergen Reactions Ampicillin hives Lisinopril Other (See Comments) Current Outpatient Medications: aspirin 81 mg chewable tablet, Chew and Swallow 1 (one) tablet (81 mg total) daily ., Disp: , Rfl: atorvastatin (LIPITOR) 80 MG tablet, TAKE ONE TABLET BY MOUTH DAILY AT BEDTIME., Disp: , Rfl: carvediloL (COREG) 3.125 MG tablet, Take 1 (one) tablet (3.125 mg total) by mouth 2 (two) times a day with meals ., Disp: , Rfl: isosorbide mononitrate (IMDUR) 30 MG 24 hr tablet, TAKE ONE TABLET BY MOUTH ONCE DAILY., Disp: , Rfl: losartan (COZAAR) 50 MG tablet, Take 1 (one) tablet (50 mg total) by mouth daily ., Disp: , Rfl: meloxicam (MOBIC) 15 MG tablet, Take 1 (one) tablet (15 mg total) by mouth daily ., Disp: 90 tablet, Rfl: 1 nitroGLYCERIN (NITROSTAT) 0.4 MG SL tablet, Place 1 (one) tablet (0.4 mg total) under the tongue every 5 (five) minutes as needed ., Disp: , Rfl: omeprazole (PRILOSEC) 20 MG capsule, Take 1 (one) capsule (20 mg total) by mouth daily ., Disp: , Rfl: Past Medical History: Diagnosis Date GERD (gastroesophageal reflux disease) Heart attack (HCC) High cholesterol Hypertension Past Surgical History: Procedure Laterality Date HERNIA REPAIR Social History Socioeconomic History Marital status: Tobacco Use Smoking status: Former Smokeless tobacco: Never Substance and Sexual Activity Alcohol use: Yes Comment: 1-4 drinks per week Drug use: Not Currently Imaging: R Hand: No acute fracture or dislocation. There is mild to moderate degenerative changes in the middle finger MCP joint. There is also moderate degenerative changes in the ring finger PIP joint spaces. Mild degenerative changes throughout the hand. Right knee: No acute fracture or dislocation. Mild tricompartmental degenerative changes. Assessment/Plan: After reviewing of the patient x-ray images I did offer him injections to both the right knee and the right middle finger which she gladly excepted. I did this without complications and he tolerated this well. I am placing some orders for the some lab work to be done. I am also placing a referral for rheumatology for the patient to be further evaluated for his RA type symptoms and polyarthralgia. He is to continue with his OTC pain medications as needed. I am more than happy to see him back as needed. He does verbalize understanding and is in agreement the treatment plan. Tendon Sheath Injection: Flexor Tendon Sheath Performed by: Corinne Fairchild CNP Authorized by: Corinne Fairchild CNP Consent given by: Patient Time out: Immediately prior to the procedure a time out was called Physician or proceduralist has discussed critical or nonroutine steps, procedure duration and anticipated blood loss: Yes Indications: Diagnostic evaluation and pain Location: Long finger Laterality: Right Prep: patient was prepped and draped in usual sterile fashion Needle size: 25 G Medications: 20 mg triamcinolone acetonide 40 mg/mL Anesthetic used: Lidocaine 1% Anesthetic amount (mL): 1 Patient tolerance: Patient tolerated the procedure well with no immediate complications LG Jt Injection/Arthrocentesis: R knee Performed by: Corinne Fairchild CNP Authorized by: Corinne Fairchild CNP CPT 80954 - Large Joint Arthrocentesis: Consent given by: Patient Time out: Immediately prior to the procedure a time out was called Physician or proceduralist has discussed critical or nonroutine steps, procedure duration and anticipated blood loss: Yes Supporting Documentation: Indications: Pain, joint swelling and diagnostic evaluation Procedure Details: Location: Knee Site: R knee Prep: patient was prepped and draped in usual sterile fashion Needle size: 22 G Approach: Anterolateral Medications: 40 mg triamcinolone acetonide 40 mg/mL Anesthetic used: Lidocaine 1% Anesthetic amount (mL): 2 Patient tolerance: Patient tolerated the procedure well with no immediate complications documented in this encounter [facility] 05-24-2022 Miscellaneous Notes Spoke with David from client lab services @ [phone]. They are able to add on A1c to most recent draw. Patient does not need to come back in. Patient informed of glucose level and informed we were adding on A1c and would call him with results. Thais Sugey Glucose was elevated. Can we please see if lab can add on an A1C. If unable to, he will probably need to return for the additional lab. Jaja Kirby APRN.SAI documented in this encounter [facility] [place] 12-08-2021 Instructions Suraj King II, OD - 12/08/2021 5:12 PM EDT Assessment and Plan H52.4 Presbyopia (primary encounter diagnosis) H52.223 Regular astigmatism, bilateral Comment: Shift in glasses power. Update to maximize visual performance. Otherwise good ocular health. Recheck in one year. I have confirmed and edited as necessary the relevant ophthalmic history, ROS, and the neuro exam findings as obtained by others. I have seen and examined Gregory Barrera. I have discussed the case and the management of this patient's care with the Resident/Fellow, if applicable. I also have reviewed and agree with the assessment and plan as stated above and agree with all of its relevant components. Suraj King II, OD documented in this encounter [facility] [place] 12-08-2021 History of Present illness Narrative Assessment and Plan H52.4 Presbyopia (primary encounter diagnosis) H52.223 Regular astigmatism, bilateral Comment: Shift in glasses power. Update to maximize visual performance. Otherwise good ocular health. Recheck in one year. I have confirmed and edited as necessary the relevant ophthalmic history, ROS, and the neuro exam findings as obtained by others. I have seen and examined Gregory Barrera. I have discussed the case and the management of this patient's care with the Resident/Fellow, if applicable. I also have reviewed and agree with the assessment and plan as stated above and agree with all of its relevant components. Suraj King II, OD documented in this encounter [facility] [place] 10-24-2021 History of Present illness Narrative Patient presents with: Ear Pain: right side ear and jaw pain, right side gland and teeth pain x 2 days HPI: Right ear/jaw pain: Duration: Right lower molars were hurting 2 days ago; now jaw, ear, and teeth Location: Right jaw Character: Mostly aching, intense at times, has been waxing and waning Radiation: No. Aggravating: Touching. Not bothered by chewing or biting. Not bothered by exertion or neck movement. Relieving: nothing Pain relievers: Advil Positive symptoms: Earache, tinnitus last night, uses qtips after showers, salivating while waiting to be seen. Negative symptoms: Cough, Shortness of breath, Chest pain, Sore throat, Nasal Congestion, Rhinorrhea, Fever, Body Aches, Headache, dizziness, palpations PAST MEDICAL HISTORY Diagnosis Date Acute gastritis Coronary artery disease Hyperlipidemia Hypertension ANÍBAL (obstructive sleep apnea) [facility] in [place] Rheumatoid arthritis(684.0) MEDICATIONS: Current Outpatient Medications Medication Sig atorvastatin (LIPITOR) 80 mg tablet Take 1 tablet by mouth daily at bedtime. isosorbide mononitrate ER (IMDUR) 30 mg 24 hr tablet Take 1 tablet by mouth once daily. losartan (COZAAR) 50 mg tablet Take 1 tablet by mouth once daily. carvedilol (COREG) 3.125 mg tablet Take 1 tablet by mouth twice daily with meals. buPROPion XL (WELLBUTRIN XL) 300 mg 24 hr tablet Take 1 tablet by mouth once daily. omeprazole (PRILOSEC) 20 mg capsule Take 1 capsule by mouth once daily. meloxicam (MOBIC) 15 mg tablet Take 15 mg by mouth once daily. albuterol HFA (PROVENTIL HFA) 90 mcg/actuation inhaler Inhale 2 Puffs as instructed every 4 hours as needed for wheezing/shortness of breath. CPAP Pressure change: CPAP 8 cmH2O, mask, tubing, filters, heated humidity, lifetime supplies. Please fax 30 day compliance download to [phone] (Nikunj). Dx: ANÍBAL, [facility] aspirin 81 mg chewable tablet Take 1 tablet by mouth once daily. GLUCOSAM & CHONDROIT-MV & MIN3 (GLUCOSAMINE &[id number] ORAL) Take 2 tablets by mouth once daily. No current facility-administered medications for this visit. ALLERGIES: ALLERGIES Allergen Reactions Ampicillin hives Seasonal Allergies Cough Patient takes Zyrtec as needed. VITALS: BP 136/82 Pulse 72 Temp 36.6 C (97.8 F) Resp 16 Wt 105.7 kg (233 lb) SpO2 96% BMI 36.49 kg/m PHYSICAL EXAM: GEN: Pleasant, in no acute distress. HEENT: PERRL, EOMI, conjunctiva clear Ears: Right ear uncomfortable with exam. canals clear. TMs without erythema, bulge, or effusion. No TMJ pain with ROM Sinuses: non-tender frontal sinus, non-tender maxillary sinuses JAW: Tender entire right lateral mandible, most tender near the angle of the jaw. Trace swelling over the right jaw compared to the left. Throat: moist mucous membranes, no erythema, no exudate, right lower molars are non-tender to palpation. Neck: supple, no thyromegaly, no lymphadenopathy, tender below the lateral right mandible HEART: regular rate and rhythm, no murmurs LUNGS: clear to auscultation, no wheezes or crackles, no increased WOB ASSESSMENT/PLAN: 1. Jaw pain, non-TMJ - ICD9: 784.92, ICD10: R68.84 Parotid area swelling and tenderness. Parotitis/duct obstruction vs mandibular dental pain. TMJ movement does not induce pain and ear exam is normal aside from pain with manipulation for exam. Tenderness of the jaw would not be a symptom of angina. Start Keflex to cover infection. Use warm compress and OTC analgesia. Follow up with ENT if not improving by Tuesday. He admits to having a laryngoscope this year for plugged salivary gland. Has dentist appointment in 2 weeks for filling on a right lower tooth. Aime Jansen MD documented in this encounter [facility] [place] 09-04-2021 History of Present illness Narrative Images from the original note were not included. NEW PODIATRIC OFFICE VISIT Chief Complaint: This 50 year old male who presents for follow up: capsulitis and chronic foot pain. Orthotics really help her. Patient has been doing the following since last visit: custom insoles. Has been over 3 years since we last saw him. PAIN EVALUATION 09/03/2021 1508 Pain Level: 3 Pain Location: bilateral foot Duration Units: Years Frequency: Intermittent Hemoglobin A1C Date Value Ref Range Status 05/01/2021 5.6 4.3 - 5.6 % Final Comment: [place] [employer] guidelines indicate that patients with HgbA1c in the range 5.7-6.4% are at increased risk for development of diabetes, and intervention by lifestyle modification may be beneficial. HgbA1c greater or equal to 6.5% is considered diagnostic of diabetes. PCP: Scooter Esquivel MD PAST MEDICAL HISTORY Diagnosis Date Acute gastritis Coronary artery disease Hyperlipidemia Hypertension ANÍBAL (obstructive sleep apnea) [facility] in [place] Rheumatoid arthritis(714.0) Current Outpatient Medications Medication Sig atorvastatin (LIPITOR) 80 mg tablet Take 1 tablet by mouth daily at bedtime. isosorbide mononitrate ER (IMDUR) 30 mg 24 hr tablet Take 1 tablet by mouth once daily. losartan (COZAAR) 50 mg tablet Take 1 tablet by mouth once daily. carvedilol (COREG) 3.125 mg tablet Take 1 tablet by mouth twice daily with meals. buPROPion XL (WELLBUTRIN XL) 300 mg 24 hr tablet Take 1 tablet by mouth once daily. omeprazole (PRILOSEC) 20 mg capsule Take 1 capsule by mouth once daily. meloxicam (MOBIC) 15 mg tablet Take 15 mg by mouth once daily. albuterol HFA (PROVENTIL HFA) 90 mcg/actuation inhaler Inhale 2 Puffs as instructed every 4 hours as needed for wheezing/shortness of breath. CPAP Pressure change: CPAP 8 cmH2O, mask, tubing, filters, heated humidity, lifetime supplies. Please fax 30 day compliance download to [phone] ([place]). Dx: ANÍBAL, [facility] aspirin 81 mg chewable tablet Take 1 tablet by mouth once daily. GLUCOSAM & CHONDROIT-MV & MIN3 (GLUCOSAMINE &[id number] ORAL) Take 2 tablets by mouth once daily. No current facility-administered medications for this visit. ALLERGIES Allergen Reactions Ampicillin hives Seasonal Allergies Cough Patient takes Zyrtec as needed. PAST SURGICAL HISTORY Procedure Laterality Date COLONOSCOPY 08/19/2021 consider repeat in 5 years based on prep EGD W/O [facility] SPEC VARICIES INJ 08/19/2021 epiglottis nodule. GERD and gastritis PAST SURGICAL HISTORY OF Right 04/1994 4th finger repair RPR 1ST INGUN HRNA AGE 6 MO-5 YRS INCARCERATED 09/1975 Physical Exam: OBJECTIVE: Constitutional: Pt is a well developed 50 year old male who is alert, oriented, cooperative and in no apparent distress. Eyes: Following during examination. No redness or drainage. Respiratory: RR normal and nonlabored. Even breathing. No evidence of distress. Psychology: Patient is engaged during conversation. Normal affect and mood. Does not appear depressed or anxious. NVSI unchanged from previous visit. Dermatological: Nails 1-5 b/l are normal. Webspaces clean and dry 1-4 b/l. Skin appears well hydrated and supple. good color, texture, turgor. No open lesions present. No callosities present. Musculoskeletal/Orthopaedic: Patient has pain to palpation of sub 2,3 forefoto ASSESSMENT: Capsulitis of metatarsophalangeal (mtp) joint of right foot (primary encounter diagnosis) History of fracture of foot Chronic foot pain, unspecified laterality PLAN: 1. History and physical examination completed today. 2. New RX custom insoles today. 3. RTC PRN Virginia Stevens DPM, DABMELCHOR, FACFAS Pager: [phone] [facility] [place] [facility] and [facility] [place] locations documented in this encounter [facility] [place] 08-27-2021 Miscellaneous Notes Patient scheduled with ENT [place], Dr Aime Fernández, for 09/04/21 at 4:15 pm [phone] Updated patient. Kusum Gentile LPN Patient recently had EGD completed by Dr. Dickerson with incidental finding of a round lesion on the epiglottis. Dr. Dickerson has recommended consult to ENT for further evaluation. Patient requests to see ENT specialist in [place] and appt as late in day as possible. Please facilitate appointment with [place] [facility] and fax copy of EGD report. documented in this encounter [facility] [place] 08-25-2021 Instructions Smiley Huitron PA-C - 08/25/2021 4:30 PM EDT -Refer to ENT for incidental finding of nodule on epiglottis. Please call office if you have not been called with an appointment by the end of the week -Repeat EGD in 3-5 years for surveillance due to long-term PPI use -Per Dr. Dickerson recommend repeat colonoscopy in 5-10 years due to bowel prep The following instructions are important for you related to your office visit today with the [facility]. INSTRUCTIONS FOLLOWING A NORMAL COLONOSCOPY I discussed with you the findings of your colonoscopy. Since there were no worrisome abnormalities, we recommend repeat colonoscopy in 5-10 years with different bowel preparation at that time. If you note bleeding, change in bowel habits, or other suspicious colon related symptoms before that time, those symptoms should be evaluated as necessary. INSTRUCTIONS FOR PEPTIC ULCER DISEASE - ESOPHAGITIS I discussed with you the findings of your upper endoscopy. Your upper endoscopy demonstrated esophagitis Esophagitis may be a form of peptic irritation, with acid moving from the stomach to the esophagus (gastroesophageal reflux) Factors that increase acid production include smoking and stress. If you smoke, stopping smoking will often cure these issues without needing other medications. Over the counter medications including antiacids and acid reducing medications including H2 blockers (Zantac and the like) and proton pump inhibitors (prilosec, prevacid and the like) neutralize or prevent acid production. Prescription strength proton pump inhibitors (PPIs) may be necessary if your symptoms persist. Carafate may be added to PPI treatment in refractory cases. Avoiding smoking, alcohol and antiinflammatory medications are important in the successful treatment of reflux esophagitis and peptic diseases. Other factors that contribute to GERD and esophagitis are being overweight, eating large meals before laying down and certain foods. Weight loss will help improve many GERD complaints. Remaining upright after eating large meals and having a small supper will also help symptoms. Avoiding food that contribute to reflux - chocolate, caffeine, cheddar cheese may also help. Follow up upper endoscopy may be recommended to assure healing of the esophagus. New or worsening symptoms such are epigastric pain, burning, difficulty swallowing or food sticking should be relayed to your physician. Feeling full early after eating, or black, tarry, foul smelling stools are also worrisome. If you have any difficulties or concerns, you should contact our office immediately. If you note any additional difficulties, questions, or concerns, you should contact our office immediately @ [phone] and ask to be transferred to the General Surgery department. documented in this encounter [facility] [place] 08-25-2021 History of Present illness Narrative FOLLOW UP VISIT - ENDOSCOPY NAME: Gregory Leo [facility] NO.: [id number] DATE OF SERVICE: 08/25/2021 : 1970 REFERRING PHYSICIAN: Scooter Esquivel MD Gregory is a patient I am following with Dr. Dickerson for GERD and screening colonoscopy. Dr. Dickerson performed upper and lower endoscopy on 08/19/21. The patient was found to have non-bleeding internal hemorrhoids on colonoscopy. Dr. Dickerson had also noted the following: The quality of the bowel preparation was adequate to identify polyps 6 mm and larger in size. EGD report showed: Findings: LA Grade A (one or more mucosal breaks less than 5 mm, not extending between tops of 2 mucosal folds) esophagitis with no bleeding was found in the distal esophagus. Biopsies were taken with a cold forceps for histology. Localized minimal inflammation characterized by erythema was found in the prepyloric region of the stomach. Biopsies were taken with a cold forceps for Helicobacter pylori testing. The examined duodenum was normal. No biopsies or other specimens were collected for this exam. The patient did have a round lesion on his epiglotis. will get ENT consult Pathology demonstrated: FINAL DIAGNOSIS A. Antrum, biopsy: Antral mucosa with minimal chronic inflammation. No evidence of H. pylori. B. Distal esophagus, biopsy: Reactive squamous mucosa with mildly increased intraepithelial lymphocytes and intraepithelial eosinophils (up to 25 eosinophils in a single high-power field). No evidence of intestinal metaplasia or dysplasia. The patient notes no complaints since the procedure. VITALS: Blood pressure 122/82, pulse 75, temperature 36.3 C (97.3 F), height 170.2 cm (5' 7 ), weight 107 kg (236 lb), SpO2 96 %. General: patient is alert, cooperative, pleasant and in no acute distress On examination, the abdomen is benign. Assessment IMPRESSION: GERD, gastritis, normal colonoscopy. Incidental finding of epiglottis nodule PLAN: I have reviewed my findings with Dr. Dickerson, who also participated in development of the following plan. The operative findings and pathology report were reviewed with the patient, and the patient has had the opportunity to ask questions and have questions answered. If the patient notes any problems or changes in bowel function, the patient should contact me immediately. Otherwise, Dr. Dickerson has recommended repeat EGD in 3-5 years based on long-term PPI use, and repeat colonoscopy in 5-10 years. HM updated and recall letter generated. -Referral to ENT for epiglottis nodule Patient verbalized understanding of all above and agreed with the plan Diagnoses: (J38.7) Lesion of epiglottis (primary encounter diagnosis) (K21.9) Gastroesophageal reflux disease, unspecified whether esophagitis present (Z79.899) Long-term current use of proton pump inhibitor therapy I spent a total of 25 minutes on the date of the service which included preparing to see the patient, [id number] patient care, completing clinical documentation, obtaining and/or reviewing separately obtained history, counseling and educating the patient/family/caregiver, communicating with other HCPs (not separately reported), independently interpreting results (not separately reported), communicating results to the patient/family/caregiver and care coordination (not separately reported). Smiley Huitron PA-C documented in this encounter [facility] [place] 08-24-2021 Miscellaneous Notes Patient scheduled 08/25 Liya Preciado PSS .1st failed attempt to contact patient. Left message to return call. May do in office or virtual follow up to review EGD biopsy Liya Preciado PSS Gregory had an EGD and colonoscopy completed with Dr. Alen Dickerson on 08/19/2021. Biopsies were taken and the patient was to follow up with MELQUIADES Kern via phone call or virtual visit. Please contact him to schedule that appointment. Vaishali Huntley RN documented in this encounter [facility] [place] 08-19-2021 History and physical note Images from the original note were not included. HISTORY AND PHYSICAL Gregory Leo Bruce 1970 REFERRING PHYSICIAN: Scooter Esquivel MD CHIEF COMPLAINT: Consult (colonoscopy) HPI: The patient is a 50 year old male referred for endoscopy. Gregory notes no colon complaints. Patient denies any change in bowel habits, weight changes, blood in stools, black tarry stools or abdominal pain. Denies family history of colon issues. The patient NOTES history of gastritis and GERD. Patient is a former smoker, quit 10 years ago. Has been on PPI long-term. Gregory has not undergone prior endoscopy. Patient additionally notes separate issue of subcutaneous lumps on abdomen. States has had multiple lipomas removed in the past. Has a few now which are becoming larger and tender and he desires excision of these. Patient's past medical history is significant for coronary artery disease, hypertension, hyperlipidemia, obstructive sleep apnea. Patient follows with Dr. Esquivel in primary care and Dr. Romo in cardiology. PAST MEDICAL HISTORY PAST MEDICAL HISTORY Diagnosis Date Acute gastritis Coronary artery disease Hyperlipidemia Hypertension ANÍBAL (obstructive sleep apnea) [facility] in [place] Rheumatoid arthritis(714.0) PAST SURGICAL HISTORY PAST SURGICAL HISTORY Procedure Laterality Date PAST SURGICAL HISTORY OF Right 04/1994 4th finger repair RPR 1ST INGUN HRNA AGE 6 MO-5 YRS INCARCERATED 09/1975 CURRENT MEDICATIONS Current Outpatient Medications Medication Sig atorvastatin (LIPITOR) 80 mg tablet Take 1 tablet by mouth daily at bedtime. isosorbide mononitrate ER (IMDUR) 30 mg 24 hr tablet Take 1 tablet by mouth once daily. losartan (COZAAR) 50 mg tablet Take 1 tablet by mouth once daily. buPROPion XL (WELLBUTRIN XL) 300 mg 24 hr tablet Take 1 tablet by mouth once daily. omeprazole (PRILOSEC) 20 mg capsule Take 1 capsule by mouth once daily. carvedilol (COREG) 3.125 mg tablet Take 1 tablet by mouth twice daily with meals. meloxicam (MOBIC) 15 mg tablet Take 15 mg by mouth. albuterol HFA (PROVENTIL HFA) 90 mcg/actuation inhaler Inhale 2 Puffs as instructed every 4 hours as needed for wheezing/shortness of breath. CPAP Pressure change: CPAP 8 cmH2O, mask, tubing, filters, heated humidity, lifetime supplies. Please fax 30 day compliance download to [phone] ([place]). Dx: ANÍBAL, [facility] aspirin 81 mg chewable tablet Take 1 tablet by mouth once daily. GLUCOSAM & CHONDROIT-MV & MIN3 (GLUCOSAMINE &[id number] ORAL) Take 2 tablets by mouth once daily. No current facility-administered medications for this visit. ALLERGIES: Ampicillin and Seasonal Allergies PERSONAL HISTORY: SOCIAL HISTORY Social History Tobacco Use Smoking status: Former Smoker Packs/day: 0.50 Types: Cigarettes Smokeless tobacco: Former User Vaping Use Vaping Use: Never used Substance Use Topics Alcohol use: Yes Comment: 1 mixed drink a month Drug use: No FAMILY HISTORY: FAMILY HISTORY FAMILY HISTORY Problem Relation Age of Onset Diabetes Mother other (Heart attack) Father at around 60 years of age Diabetes Maternal Grandmother Hypertension Paternal Grandfather Heart Maternal Grandfather several heart attacks REVIEW OF SYMPTOMS: The review of systems data was entered by the nurse and reviewed by nd Nursing Notes: Naomi Sykes RN 06/22/2021 4:41 PM Signed REVIEW OF SYSTEMS: General: The patient denies fatigue, denies weight loss, denies weight gain, denies feeling hot, and denies feelings of cold. Eyes: The patient denies glaucoma, denies eye injury/surgery, wears glasses or contacts. Ear/Nose/Throat: The patient NOTES allergies, denies hayfever, denies ear infections, and denies bloody noses. Cardiovascular: The patient denies chest pain, NOTES heart disease, NOTES high blood pressure,denies cardiac stent, NOTES prior heart attack, denies irregular heart beat, NOTES high cholesterol, denies poor circulation, denies heart failure, other cardiac issues, denies claudication, denies cold feet, denies peripheral arterial stent. Respiratory: The patient denies tuberculosis, denies pneumonia, denies frequent cough, denies pulmonary embolism, denies shortness of breath, and denies coughing up blood. Gastrointestinal: The patient denies difficulty swallowing, NOTES acid reflux, denies ulcers, denies vomiting, denies jaundice/hepatitis, denies gallbladder problems, denies black or tarry stools, denies hemorrhoids, denies bleeding from rectum, denies diverticulitis, denies constipation, denies diarrhea, denies loss of stool control, and NOTES hernias. Kidney/Bladder: The patient denies kidney stones, denies urine infections, and denies bloody urine. Skin: The patient denies a history of skin cancer, denies bleeding/changing moles, and denies a history of skin rash. Neurologic: The patient denies a history of epilepsy/convulsions, denies headaches, denies head/spinal injuries, and denies stroke/TIA. Psychiatric: The patient denies psychiatric medications, denies depression, and denies voices, denies substance abuse. Endocrine: The patient denies thyroid disorders, denies diabetes, and denies hormonal problems. Hematologic: The patient denies a history of bruising, denies bleeding, and denies anemia, denies blood clots. Infections: The patient denies a history of measles and mumps, denies rheumatic fever, and denies sexually transmitted diseases. Musculoskeletal: The patient denies back pain/injury, denies back problems, denies sciatica, denies knee/foot trouble, NOTES arthritis, or denies gout. When was patient's last Mammogram screening? Last Colonoscopy: Naomi Sykes RN I have confirmed and edited as necessary, the PFSH and ROS obtained by others. Smiley Huitron PA-C PHYSICAL EXAMINATION: General: The patient is 50 year old male, well nourished, well hydrated in no acute distress. The patient is oriented to time, place, and person. VITALS: Blood pressure 124/82, pulse 87, temperature 36.3 C (97.3 F), height 167.6 cm (5' 6 ), weight 110.2 kg (243 lb), SpO2 97 %. Body mass index is 39.22 kg/m . HEENT: Normal cephalic, ataumatic, pupils are equally round, sclera are anicteric, mucous membranes are moist, oropharynx is clear. Neck has no masses, asymmetry or lymphadenopathy. Respiratory: Clear to auscultation and percussion. Normal respiratory excursion and pattern. Cardiac: Examination is regular rate and rhythm. Normal S1/S2 Abdominal exam: Soft, nontender. +small and medium-sized mobile rubbery nodules right and left lower abdomen. No hepatosplenomegaly. No palpable hernias. Extremities: no clubbing, cyanosis or edema. No adenopathy. LABORATORY VALUES: As Noted RADIOLOGIC STUDIES: As Noted Assessment IMPRESSION: encounter for colonoscopy. GERD and long-term PPI use-recommend EGD. Subcutaneous nodules of abdomen PLAN: I have reviewed my findings with the surgeon. Will plan for upper and lower endoscopy. We discussed the risks and benefits of the planned endoscopy. I have informed the patient that complications can occur including failure to complete the endoscopy and perforation. The patient had the opportunity to ask questions concerning the planned endoscopy. My staff has also explained the procedure to the patient in understandable terms and has given the patient printed material concerning the procedure. The patient freely consents to surgery. The patient was offered a surgery/procedure at a [facility] facility. I have counseled the patient regarding the risk of exposure to and/or potential harm posed by the COVID-19 virus with having a surgery/procedure at this time versus the risk of delaying the surgery/procedure. It is not possible to know either the risk of delaying the surgery or procedure or chance of getting an infection with perfect accuracy, but a joint decision was made between the patient and myself to proceed at this time with endoscopy. We will plan for Monitored Anesthetic Care. Request for cardiac clearance/ permission to hold aspirin for procedure sent to Dr. Romo. Once this is received, may also schedule an office procedure for lipoma excision Patient verbalized understanding of all above and agreed with the plan. Consultation requested by Dr. Esquivel for an opinion regarding screening colonoscopy and GERD. My final recommendations will be communicated back to the requesting physician by way of shared Medical record or letter to requesting physician via US mail. Diagnoses: (K21.9) Chronic GERD (primary encounter diagnosis) (Z12.11) Screening for colon cancer (D17.9) Lipoma, unspecified site Smiley Huitron PA-C UPDATED HISTORY AND PHYSICAL EXAMINATION SERVICE DATE: 08/19/2021 SERVICE TIME: 10:21 AM PHYSICAL EXAM MUST BE COMPLETED ON ADMISSION The History and Physical (completed in the past 30 days) has been reviewed and the patient has been examined. The contents accurately reflect the patient's condition with the following additions or revisions since the H&P was completed. Examination indicates no changes. This H&P can be found in the attached. SIGNATURE: Alen Dickerson III, MD PATIENT NAME: Gregory Barrera DATE: August 19, 2021 TIME: 9:45 AM documented in this encounter [facility] [place] 08-14-2021 Nurse Note Patient is a 50 year old male here to see Cardiology for follow up. The patient has no cardiac symptoms at this time.. (Import from EMR History) PAST MEDICAL HISTORY Diagnosis Date Acute gastritis Coronary artery disease Hyperlipidemia Hypertension ANÍBAL (obstructive sleep apnea) [facility] in [place] Rheumatoid arthritis(714.0) (Import from EMR History) PAST SURGICAL HISTORY Procedure Laterality Date PAST SURGICAL HISTORY OF Right 04/1994 4th finger repair RPR 1ST INGUN HRNA AGE 6 MO-5 YRS INCARCERATED 09/1975 (Import from EMR History) Social History Tobacco Use Smoking status: Former Smoker Packs/day: 0.50 Types: Cigarettes Smokeless tobacco: Former User Vaping Use Vaping Use: Never used Substance Use Topics Alcohol use: Yes Comment: 1 mixed drink a month Drug use: No Patient caffeine history: 2 can(s)/day of soft drinks Do you need any refills today?: No documented in this encounter [facility] [place] 08-14-2021 History of Present illness Narrative SUBJECTIVE: Gregory Barrera is a 50 year old male. Patient presents with: [facility] Follow Up: Stress test Gregory Barrera was referred by Caroline Romo HPI: Mr. Barrera is a 50 year old male with PMH of HTN, Dyslipidemia, Prediabetes, ANÍBAL, presented February 2015, [facility] with chest pain, pressure, tightness, radiated to jaw area, left arm, occurred while exercising on the Ellipitcal, duration of less than an hour, improved with nitro paste, ASA, Associated symptoms of diaphoresis, nausea, difficulty taking a deep breath, Denies palpitations, lightheadedness, dizziness, pre/syncopal episode, MASON, SOB, edema, fever, chills, abnormal bleeding. Patient states chest pain started last week but symptoms were not has significant. He has been experiencing chest pain intermittently while admitted at [facility]. DIAGNOSIS: 1. Chest Pain/R/O ACS: 2. Hypertension: 3. Dyslipidemia: -Lipid panel: 02-01-15: Tri, Chol:205, HDL:46, LDL: 134 4. ANÍBAL 5. Prediabetes: 6. H/O Gastritis: 7. H/O Tobacco Use. Patient evaluated/examined personally. Clinical cardiac exam unremarkable. Classical description of progressive exertional/crescendo angina, progressing to NSTEMI, in 47 year old male with moderate cardiac risk factor profile. Will proceed with catheter based evaluation. All risks, benefits, outcomes, approaches and alternatives discussed - agrees to proceed. Planned Procedure: Left Heart Catheterization with Possible PCI Primary Indication for Procedure: Angina, Unstable and Non-STEMI High Risk Features: History of Prior CABG: No History of Prior PCI: No Cardiomyopathy: No Anti-ischemic Meds in Past 2 Weeks: Beta blockers and Nitrates Ejection Fraction: None Risk Appropriateness: Angina Class in Past 2 Weeks: Class IV - Unable to carry on any physical activity without discomfort Stress Test Results: No stress test performed Cardiogenic Shock: No CHF in Past 2 Weeks: No Informed consent obtained. PROCEDURES: Left heart catheterization, selective coronary arteriogram and left ventriculogram. HEMODYNAMICS: LV pressure: 125/EDP 20. Aortic pressure: 119/72 mean 92. COMMENT: There was no gradient demonstrated from LV to aorta pullback. CORONARY ARTERIES: 1. LEFT MAIN: This is a large caliber, medium length, normal vessel. 2. LEFT ANTERIOR DESCENDING: This is a large caliber normal vessel, advancing to the apex with evidence of minimal intramuscular bridging. 3. CIRCUMFLEX: This is a large caliber vessel with evidence of a long segment of 60-80% stenosis from proximal to mid segment of the second small caliber obtuse marginal branch, with minimal change in segment caliber after 100 mcg of intracoronary nitroglycerin. 4. RIGHT CORONARY ARTERY: This is a large caliber, dominant normal vessel. LEFT VENTRICULOGRAM: This was obtained in the [place] projection only. The left ventricle does not appear dilated. There are no discrete regional wall motion abnormalities. Left ventricular ejection fraction is normal, estimated at 60%. The ascending aorta is normal in caliber. The aortic valve appears trileaflet. There is no evidence of mitral regurgitation. IN SUMMARY: 1. Moderate to severe long segment narrowing of proximal to mid second small obtuse marginal branch with minimal change with intra coronary nitroglycerin. 2. Normal left ventricular function with ejection fraction estimated at 60%. The patient underwent provocative nuclear testing, February 2015, to check the functional significance of the obtuse marginal stenosis. CONCLUSIONS: 1. Perfusion study: Abnormal. 2. There is mild (3% of LV mass) ischemia in the territory of the LCX (mid anterolateral and basal anterolateral segments). 3. No findings to suggest myocardial scar or hibernation. 4. Average functional capacity for age and gender. 5. Left ventricle is normal in size. The left ventricle systolic function is normal. 6. Right ventricle is normal in size. The right ventricle systolic function is normal. 7. The Stress LVEF is 61 %. 8. This is a low risk scan. On this basis, a medical/conservative management strategy was adopted. The patient underwent non-imaging maximal stress test, February 2017 and was able to achieve 12.2 METs, stage IV of the standard Lam protocol, with good functional capacity for age and gender. There were no ischemic electrocardiographic changes noted and the patient experienced no symptoms. Nuclear stress testing, March 2019, there was no evidence for provokable ischemia or previous myocardial scarring, with an ejection fraction of 60%. CARDIAC HISTORY: SYMPTOMS: Chest pain/discomfort: No, Palpitations:No, Arrhythmia: No Dyspnea: No, Dyspnea at rest: No, Nocturnal dyspnea: No Orthopnea: No, Diaphoresis: No, Dizziness: No, Syncope: No, Edema: No, Nocturia: No, Impaired exercise tolerance: No, Claudication:No CONDITIONS: Hypertension: Yes, Heart failure:No, [place] Heart Association Functional Classification: Class I, Atrial fibrillation:No, History of myocardial infarction/angina: Yes, History of CABG/PCI:No, Valvular heart disease: No, Cardiomyopathy: No, Aortic diseases: No, Peripheral vascular disease: No, History of cerebrovascular accident: No, History of pulmonary embolism No, History of DVT No. History of rheumatic fever: No, History of transient ischemic attacks: No, Congenital heart disease: No, Pericarditis: No, Pericardial Effusion: No CORONARY RISK FACTORS: Family history of coronary artery disease Yes: Family history CAD in a first degree relative father Premature onset: No, Tobacco use Yes:Tobacco use details: 04/12 ppd, Sedentary lifestyle Yes, Hypertension Yes, Hyperlipidemia Yes, Diabetes mellitus No, Obesity Yes, Peripheral vascular disease No. HISTORIES: FAMILY HISTORY Mother: Diabetes Father: other (Heart attack; at around 60 years of age) Maternal Grandmother: Diabetes Maternal Grandfather: Heart (several heart attacks) Paternal Grandfather: Hypertension PAST MEDICAL HISTORY Rheumatoid Arthritis(714.0) (Hcc) Acute Gastritis Hypertension Hyperlipidemia Aníbal (Obstructive Sleep Apnea) PAST SURGICAL HISTORY Repair Ing Hernia,6mo-5yr,[place] - 09/1975 Past Surgical History of - 04/1994 (4th finger repair) Tobacco Use: .5 packs/day Types: Cigarettes (wearing patch, quit 12/29/08) Alcohol Use: Yes (1 mixed drink a month) Occupation: [employer] ALLERGIES Ampicillin; Seasonal Allergies REVIEW OF SYSTEMS: Constitutional: Fatigue: No, Weight loss: No, Weight gain: No, Fever: No, Chills: No Eyes: Blurred or Reduced Vision:No Ears: Hearing Loss:No Nose,Throat: Epistaxis:No, Bleeding gums:No Respiratory: Dyspnea:No, Cough:No, Hemoptysis:No, Wheezing:No, Pleuritic pain:No, Sleep Apnea:No, COPD:No, Asthma:No Gastrointestinal: Hematemesis:No, Blood in stool:No, Abdominal pain:No, Nausea and/or vomiting:No Genitourinary: Dysuria:No, Hematuria:No, Renal insufficiency:No, Pregnancies:No, BPH:No Hematologic: Anemia:No, Bruises easily:No, Bleeds easily:No History of Cancer: No Musculoskeletal: Muscle pain:No, Arthritis/Arthralgia:No Skin: Rash:No, Pruritus:No Neurologic: Headache:No, Dizziness:No, Seizures:No, Dementia:No Psychiatric: Anxiety:No, Depression:No, Over the past 2 weeks have you felt down, depressed or hopeless?:No, Over the past 2 weeks have you felt little interest or pleasure in doing things?:No Endocrine: Polyphagia:No, Polydipsia:No, Polyuria:No, Goiter:No, Hyper/hypothyroidism:No, Dyslipidemia:No Allergic, Immunology: Urticaria:No, Collagen vascular disease:No Other: The rest of the review of systems is unremarkable and negative or non-contributory. OBJECTIVE: VITALS: BP 130/88 Pulse 76 Resp 14 Ht 5' 7 238 lbs PHYSICAL EXAMINATION: GENERAL APPEARANCE: Appears Healthy:Yes, Obese:Yes, Acute distress:No, Appearance consistent with age:Yes, Responds appropriately: Yes MENTAL STATUS: Alert:Yes, Cooperative:Yes, Pleasant:Yes, Affect: normal EYES: Conjunctiva/corneas normal:Yes, PERRL:Yes, Scleral icterus:No, Xanthelasma:No HEAD, NECK: Good oral hygiene:Yes, Oral mucosa normal:Yes, Jugular venous distention:No, Hepatojugular reflux:No, Thyromegaly:No, Carotid endarterectomy:No,Thyroidectomy :No RESPIRATORY:Chest movement symmetrical:Yes, Respiratory effort normal:Yes, Percussion of chest normal:Yes, Breath sounds normal:Yes, Crackles:No, Rales:No, Rhonchi:No, Wheezing:No, Pleural friction rub:No, Evidence of pacemaker/ICD:No, Median sternotomy scar:No, Sternal instability:No CARDIAC: [place] beat not localized, Cardiac thrill:No, Heart rate normal:Yes, Heart rhythm normal:Yes, S1 normal:Yes, S2 normal:Yes, S3 ausculated:No, S4 ausculated:No, Gallop ausculated:No, Heart murmur:No, Prosthetic valve click:No, Pericardial friction rub:No ABDOMINAL:Abdomen soft, non-tender. BS normal. No masses or organomegaly. and positive findings: Moderate obese VASCULAR/EXTREMITIES:Radial pulse normal:Yes, Carotid pulse normal:Yes, Carotid bruit:No, Abdominal aorta palpable:No, Abdominal aortic bruit:No, Femoral pulse normal:Yes, Femoral bruit:No, Dorsalis pedis pulse present:Yes, Posterior tibial pulse present:Yes, Popliteal pulse:Yes, Varicose veins:No, Leg edema:No, Pedal edema:No NEUROLOGIC: Grossly non-focal:Yes MUSCULOSKELETAL: Muscle strength normal:Yes, Joint range of motion normal:Yes SKIN: Clubbing:No, Cyanosis:No, Pallor:No, Diaphoresis:No, Stasis dermatitis/post phlebitic changes:No, Cutaneous xanthoma:No REVIEWED: ECG: No Echo: No Cath: YES As above Stress: YES as above PREVENTATIVE CARE: GENERAL: Advised to quit smoking. Provided tobacco use smoking cessation counseling. Discussed aspirin treatment. DIET/EXERCISE: Recommended weight loss. Discussed weight management stratagies. Recommended regular physical activity. Discussed low sodium diet. Discussed low cholesterol diet. PATIENT EDUCATION: Continue with medications as directed. Prescription risks and side effects discussed. Instructed on chest pain. ASSESSMENT/PLAN/RECOMMENDATIONS: The patient remains well at this visit, with no evidence of recurrent angina. After reviewing his current medical regimen, I see no reason to make any changes. Risk factor modification, namely aggressive weight loss and maintenance, regimented diet and exercise, was strongly encouraged. The patient will follow in the office in February 2022 and then annually. Encounter Diagnosis ICD-10-CM ICD-9-CM 1. Essential hypertension I10 401.9 2. Hyperlipidemia, unspecified hyperlipidemia E78.5 272.4 3. NSTEMI (non-ST elevated myocardial infarction) (HCC) I21.4 410.70 4. Coronary artery disease involving [place] coronary artery of [place] heart without angina pectoris I25.10 414.01 Caroline Romo MD Portions of the encounter note have been copied from a previous note, dated 05/21/2019, which has been updated where appropriate and reflects my current medical decision making from today. documented in this encounter [facility] [place] 07-23-2021 History of Present illness Narrative Subjective HPI Nontoxic-appearing male presents urgent care chief complaint possible sinus infection. Duration of symptoms 4 days. Associated symptoms nasal congestion ear/jaw pain and dental pain. Patient states has had sinus infections this feels slightly similar. Denies any OTC medications use. Denies any known sick contacts. Does have dental abnormalities following up with dentist in the few weeks. Denies any significant pain currently. States dental pain was worse on Tuesday has improved today. Denies any fevers nausea vomiting abdominal pain cough chest pain shortness of breath or change in bowel or bladder habits. Past medical history prescription medication use allergies reviewed. .Patient presents with: congestion and facial pain: x 4 days-also has an sinus KRUGER PAST MEDICAL HISTORY Diagnosis Date Acute gastritis Coronary artery disease Hyperlipidemia Hypertension ANÍBAL (obstructive sleep apnea) [facility] in [place] Rheumatoid arthritis(714.0) PAST SURGICAL HISTORY Procedure Laterality Date PAST SURGICAL HISTORY OF Right 04/1994 4th finger repair RPR 1ST INGUN HRNA AGE 6 MO-5 YRS INCARCERATED 09/1975 ALLERGIES Ampicillin and Seasonal Allergies MEDICATIONS atorvastatin (LIPITOR) 80 mg tablet Take 1 tablet by mouth daily at bedtime. isosorbide mononitrate ER (IMDUR) 30 mg 24 hr tablet Take 1 tablet by mouth once daily. losartan (COZAAR) 50 mg tablet Take 1 tablet by mouth once daily. buPROPion XL (WELLBUTRIN XL) 300 mg 24 hr tablet Take 1 tablet by mouth once daily. omeprazole (PRILOSEC) 20 mg capsule Take 1 capsule by mouth once daily. carvedilol (COREG) 3.125 mg tablet Take 1 tablet by mouth twice daily with meals. meloxicam (MOBIC) 15 mg tablet Take 15 mg by mouth. albuterol HFA (PROVENTIL HFA) 90 mcg/actuation inhaler Inhale 2 Puffs as instructed every 4 hours as needed for wheezing/shortness of breath. CPAP Pressure change: CPAP 8 cmH2O, mask, tubing, filters, heated humidity, lifetime supplies. Please fax 30 day compliance download to [phone] ([place]). Dx: ANÍBAL, [facility] aspirin 81 mg chewable tablet Take 1 tablet by mouth once daily. GLUCOSAM & CHONDROIT-MV & MIN3 (GLUCOSAMINE &[id number] ORAL) Take 2 tablets by mouth once daily. FAMILY HISTORY Problem Relation Age of Onset Diabetes Mother other (Heart attack) Father at around 60 years of age Diabetes Maternal Grandmother Hypertension Paternal Grandfather Heart Maternal Grandfather several heart attacks Social History Tobacco Use Smoking status: Former Smoker Packs/day: 0.50 Types: Cigarettes Smokeless tobacco: Former User Vaping Use Vaping Use: Never used Substance Use Topics Alcohol use: Yes Comment: 1 mixed drink a month Drug use: No BP 138/84 Pulse 76 Temp 36.6 C (97.9 F) (Tympanic) Resp 16 Wt 110.6 kg (243 lb 12.8 oz) SpO2 97% BMI 39.35 kg/m Review of Systems Constitutional: Negative for chills, fever and malaise/fatigue. HENT: Positive for congestion, ear pain and sinus pain. Negative for ear discharge and sore throat. Eyes: Negative for blurred vision, pain, discharge and redness. Respiratory: Negative for cough, hemoptysis, sputum production, shortness of breath, wheezing and stridor. Cardiovascular: Negative for chest pain. Gastrointestinal: Negative for abdominal pain, diarrhea, nausea and vomiting. Musculoskeletal: Negative for myalgias. Skin: Negative for itching and rash. Neurological: Negative for dizziness and headaches. Objective Physical Exam Vitals and nursing note reviewed. Constitutional: General: He is not in acute distress. Appearance: He is not diaphoretic. HENT: Head: Normocephalic and atraumatic. Jaw: No trismus, tenderness, swelling, pain on movement or malocclusion. Right Ear: Hearing, ear canal and external ear normal. No decreased hearing noted. No drainage, swelling or tenderness. Tympanic membrane is erythematous and bulging. Tympanic membrane is not perforated. Left Ear: Hearing, tympanic membrane, ear canal and external ear normal. No decreased hearing noted. No drainage, swelling or tenderness. Tympanic membrane is not perforated, erythematous or bulging. Nose: Congestion present. Right Sinus: Maxillary sinus tenderness present. Left Sinus: Maxillary sinus tenderness present. Mouth/Throat: Lips: Difficult Run. Mouth: Mucous membranes are moist. Pharynx: Oropharynx is clear. Uvula midline. No pharyngeal swelling, oropharyngeal exudate, posterior oropharyngeal erythema or uvula swelling. Eyes: General: Right eye: No discharge. Left eye: No discharge. Conjunctiva/sclera: Conjunctivae normal. Pupils: Pupils are equal, round, and reactive to light. Cardiovascular: Rate and Rhythm: Normal rate and regular rhythm. Heart sounds: Normal heart sounds. Pulmonary: Effort: Pulmonary effort is normal. No tachypnea, accessory muscle usage or respiratory distress. Breath sounds: Normal breath sounds. No stridor. No wheezing, rhonchi or rales. Chest: Chest wall: No tenderness. Abdominal: Palpations: Abdomen is soft. Tenderness: There is no abdominal tenderness. Musculoskeletal: General: No tenderness. Normal range of motion. Cervical back: Normal range of motion and neck supple. No rigidity or tenderness. Lymphadenopathy: Head: Right side of head: No submental, submandibular, tonsillar, preauricular, posterior auricular or occipital adenopathy. Left side of head: No submental, submandibular, tonsillar, preauricular, posterior auricular or occipital adenopathy. Cervical: No cervical adenopathy. Right cervical: No superficial or posterior cervical adenopathy. Left cervical: No superficial or posterior cervical adenopathy. Skin: General: Skin is warm and dry. Findings: No rash. Neurological: Mental Status: He is alert and oriented to person, place, and time. ASSESSMENT/PLAN: 1. Acute otitis media, right - ICD9: 382.9, ICD10: H66.91 (primary diagnosis) 2. Pain, dental - ICD9: 525.9, ICD10: K08.89 Patient dental pain slightly improving. No trismus decreased range of motion neck. No evidence of salivary gland infection. No evidence of deep neck tissue infection. Patient does have mildly erythematous bulging left TM. Couple with dental pain patient will placed on Omnicef. Has tolerated Keflex in the past. Patient was educated on supportive therapies. Patient will follow up with primary care provider as needed. Patient was instructed to immediately proceed to emergency room for any new, worsening, or symptoms lasting longer than anticipated. The patient's clinical presentation is otherwise unremarkable at this time. Based on exam and clinical finding, the patient is stable for discharge. Plan of care was discussed with patient. Patient verbalizes understanding and agrees to plan of care. This note was generated using [employer] software. It may contain errors in wording, punctuation, or spelling. Malachi Chaudhry APRN.SAI documented in this encounter [facility] [place] 07-20-2021 History of Present illness Narrative Virtualist Progress Note Triage Call Triage source: Nurse Business Intelligence Analyst Mode of contact (phone call, [employer], [employer], Skype, other): phone History/Physical Exam: 50 yo M R sided jaw and face pain for 2 days in R upper and lower teeth tried advil with no relief no clicking of jaw hurts to touch the R side of face (cheek and jaw area) but pain when touches L side of face called dentist and they can't see him until end of month hurts to chew hurts to close mouth advil and cold water helps worse with touching face or chewing. moving the mouth no SOB no chest pain PMH HT, nstemi, Plan symptoms are on R side, worse with chewing, etc. no cardiovascular or respiratory symptoms no red flags so will refer to express care Imp R sided facial pain Nurse Triage Disposition (If call is from [facility], [facility] nurse triage, or an Express Care, the disposition is Go to ED Now ): Go to ED Now (or PCP Triage) Downgrade: Yes Virtualist Recommended Disposition: Go to a [facility] Remove COVID19 association SIGNATURE: Kecia Marinelli MD PATIENT NAME: Gregory Barrera DATE: July 20, 2021 Pager/Phone: documented in this encounter [facility] [place] 07-20-2021 Miscellaneous Notes Reason for call: Right face, jaw, mouth pain x 2 days Outcome: Go to ED now (PCP triage); conferenced Dr. Kecia Marinelli for best recommendations. After assessment of the patient she advises patient be seen today at [facility]. Patient states he is currently driving from [place] and won't be home until 8 pm. Reviewed express care online and patient states he plans to utilize. Reason for Disposition [1] New-onset jaw pain AND [2] unknown cause AND [3] at least one cardiac risk factor (i.e., hypertension, diabetes, obesity, smoker or strong family history of heart disease) Answer Assessment - Initial Assessment Questions 1. ONSET: x 2 days ago 07/18/21 2. ONSET: constant 3. SEVERITY: 7/10; throbbing ache 4. LOCATION: right face, jaw, teeth (right upper and lower), below right eye, top of mouth. States is painful to touch right side of face, denies pain to left side. 5. RASH: denies rash, redness, swelling 6. FEVER: denies 7. OTHER SYMPTOMS: denies chest pain, shortness of breath 8. :na Protocols used: FACE [id number] documented in this encounter [facility] [place] 09-23-2020 History of Present illness Narrative Associated Order(s): CASSANDRA Jt Injection/Arthrocentesis: R glenohumeral; MD Azevedo Injection/Arthrocentesis: L radiocarpal Post-Procedure Diagnose(s): Bursitis and tendinitis of shoulder region; Left wrist tendinitis CASSANDRA Jt Injection/Arthrocentesis: R glenohumeral Performed by: Corinne Fairchild CNP Authorized by: Corinne Fairchild CNP CPT 68981 - Large Joint Arthrocentesis: Consent given by: Patient Time out: Immediately prior to the procedure a time out was called Physician or proceduralist has discussed critical or nonroutine steps, procedure duration and anticipated blood loss: Yes Supporting Documentation: Indications: Pain and diagnostic evaluation Procedure Details: Location: Shoulder Site: R glenohumeral Prep: patient was prepped and draped in usual sterile fashion Needle size: 22 G Approach: Posterior Medications: 40 mg triamcinolone acetonide 40 mg/mL Anesthetic amount (mL): 2 Patient tolerance: Patient tolerated the procedure well with no immediate complications MD Azevedo Injection/Arthrocentesis: L radiocarpal Performed by: Corinne Fairchild CNP Authorized by: Corinne Fairchild CNP CPT 88939 - Medium Joint Arthrocentesis: Consent given by: Patient Time out: Immediately prior to the procedure a time out was called Physician or proceduralist has discussed critical or nonroutine steps, procedure duration and anticipated blood loss: Yes Supporting Documentation: Indications: Pain and diagnostic evaluation Procedure Details: Location: Wrist Site: L radiocarpal Prep: patient was prepped and draped in usual sterile fashion Needle size: 22 G Approach: Dorsal Medications: 40 mg triamcinolone acetonide 40 mg/mL Anesthetic amount (mL): 1 Patient tolerance: Patient tolerated the procedure well with no immediate complications Gregory Barrera 1970 CC: 49 y.o. is a he with right shoulder and left wrist pain. Chief Complaint Patient presents with Right Shoulder - Pain Left Wrist - Pain . HPI: Shoulder Pain: Patient complains of right shoulder and left wrist pain. He had an injury to the shoulder when he was 16 years old and states that he doesn't think the shoulder was ever right after that. 2 months ago, he felt a pop and started to have increased pain. He also complains of decreased range of motion but states that his strength seems to be fine. He is finding it more difficult and painful to throw a baseball with his son which is very upsetting to him. 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 He has been taking otc pain medications which only seem to take the edge off. He has trouble sleeping on the right shoulder actually just can't lay on that right side at all. While he has sharp pain at times, the shoulder is just a constant dull ache. Today he rates the pain a 5/10. The left wrist starting hurting this past January. He states he woke up with pain without any known injury. He complains of pain along the outside portion, ulnar side of the wrist. He notices this pain more so with a twisting motion, one that he does frequently with his job. He has tried to wear a brace to help but ends up getting caught up and limited while working.The otc pain meds dont' help. He denies any swelling in the wrist, just pain. He denies any loss of strength in the wrist. PMH: Allergies Allergen Reactions Ampicillin hives Current Outpatient Medications: aspirin 81 mg chewable tablet, Chew and Swallow 81 mg daily ., Disp: , Rfl: atorvastatin (LIPITOR) 80 MG tablet, TAKE ONE TABLET BY MOUTH DAILY AT BEDTIME., Disp: , Rfl: carvediloL (COREG) 3.125 MG tablet, Take 3.125 mg by mouth 2 (two) times a day with meals ., Disp: , Rfl: isosorbide mononitrate (IMDUR) 30 MG 24 hr tablet, TAKE ONE TABLET BY MOUTH ONCE DAILY., Disp: , Rfl: losartan (COZAAR) 50 MG tablet, Take 50 mg by mouth daily ., Disp: , Rfl: nitroGLYCERIN (NITROSTAT) 0.4 MG SL tablet, Place 0.4 mg under the tongue every 5 (five) minutes as needed ., Disp: , Rfl: omeprazole (PRILOSEC) 20 MG capsule, Take 20 mg by mouth daily ., Disp: , Rfl: meloxicam (Mobic) 7.5 MG tablet, Take 1 (one) tablet (7.5 mg total) by mouth daily ., Disp: 30 tablet, Rfl: 11 Past Medical History: Diagnosis Date GERD (gastroesophageal reflux disease) Heart attack (HCC) High cholesterol Hypertension Past Surgical History: Procedure Laterality Date HERNIA REPAIR Social History Socioeconomic History Marital status: Spouse name: Not on file Number of children: Not on file Years of education: Not on file Highest education level: Not on file Occupational History Not on file Tobacco Use Smoking status: Former Smoker Smokeless tobacco: Never Used Substance and Sexual Activity Alcohol use: Yes Comment: 1-4 drinks per week Drug use: Not Currently Sexual activity: Not on file Other Topics Concern Not on file Social History Narrative Not on file Social Determinants of Health Financial Resource Strain: Difficulty of Paying Living Expenses: Food Insecurity: Worried About Running Out of Food in the Last Year: Ran Out of Food in the Last Year: Transportation Needs: Lack of Transportation (Medical): Lack of Transportation (Non-Medical): Physical Activity: Days of Exercise per Week: Minutes of Exercise per Session: Stress: Feeling of Stress : Social Connections: Frequency of Communication with Friends and Family: Frequency of Social Gatherings with Friends and Family: Attends Jain Services: Active Member of Clubs or Organizations: Attends Club or Organization Meetings: Marital Status: The patient's past medical history, surgical history, social history, family history, medications and allergies were reviewed with the patient today and are available in the chart for further review. ROS: Review of Systems Constitutional: Negative for activity change and fatigue. HENT: Negative for congestion, hearing loss and trouble swallowing. Eyes: Negative for visual disturbance. Respiratory: Negative for chest tightness and shortness of breath. Cardiovascular: Negative for chest pain and palpitations. Gastrointestinal: Negative for abdominal pain, diarrhea, nausea and vomiting. Endocrine: Negative for polydipsia, polyphagia and polyuria. Genitourinary: Negative for decreased urine volume, difficulty urinating and hematuria. Musculoskeletal: Positive for arthralgias. Negative for joint swelling and myalgias. Skin: Negative for color change, rash and wound. Allergic/Immunologic: Negative for immunocompromised state. Neurological: Negative for dizziness, weakness, light-headedness and numbness. Hematological: Does not bruise/bleed easily. Psychiatric/Behavioral: Negative for confusion and sleep disturbance. The patient is not nervous/anxious. PE: Physical Exam Constitutional: Appearance: He is well-developed. HENT: Head: Normocephalic. Eyes: Pupils: Pupils are equal, round, and reactive to light. Cardiovascular: Rate and Rhythm: Normal rate and regular rhythm. Pulmonary: Effort: Pulmonary effort is normal. Breath sounds: Normal breath sounds. Abdominal: General: Bowel sounds are normal. Palpations: Abdomen is soft. Musculoskeletal: General: Tenderness present. Normal range of motion. Cervical back: Normal range of motion and neck supple. Skin: General: Skin is warm and dry. Neurological: Mental Status: He is alert and oriented to person, place, and time. Left Hand Exam Tenderness The patient is experiencing tenderness in the ulnar area. Range of Motion Wrist Extension: normal Flexion: normal Pronation: 70 Supination: 80 Muscle Strength The patient has normal left wrist strength. Tests Phalen s Sign: negative Tinel's sign (median nerve): negative Sophy's test: negative Other Erythema: absent Scars: absent Sensation: normal Pulse: present Right Shoulder Exam Tenderness The patient is experiencing tenderness in the acromion and biceps tendon. Range of Motion Active abduction: 170 External rotation: 90 Forward flexion: 170 Internal rotation 90 degrees: 80 Muscle Strength Abduction: 5/5 Internal rotation: 5/5 External rotation: 5/5 Supraspinatus: 4/5 Subscapularis: 5/5 Biceps: 5/5 Tests Apprehension: negative Cross arm: positive Impingement: positive Drop arm: negative Sulcus: absent Other Erythema: absent Scars: absent Sensation: normal Pulse: present Comments: +obriens +empty can Imaging: R Shoulder: No acute osseous abnormality. Mild acromioclavicular and glenohumeral joint osteoarthritis L Wrist:No acute osseous abnormality. Mild degenerative changes of the radioscaphoid and 1st CMC articulations. Assessment: After examination and reviewing of the patient x-ray images, we discussed treatment options. I offered him a cortisone injection for pain and inflammation to the shoulder and wrist which he gladly accepted. I did this without complications and he tolerated this well. We also discussed physical therapy but we are going to wait to see if he gets relief from the injections. I am going to start him on Meloxicam daily. If there is no improvement after the injections and the oral medications, I will start him in outpatient physical therapy. He verbalizes understanding and is in agreement with the treatment plan. Plan: Injections to shoulder and wrist. Start Meloxicam 7.5mg daily. Follow up in 2 weeks if no improvement. Diagnosis: Problem List Items Addressed This Visit None Follow Up: No follow-ups on file. 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/09/2014 Essential hypertension, benign 08/05/2012 0 12/03/2019 Elevated BP 04/01/2012 08/05/2012 Arthritis 07/28/2011 12/03/2019 Open wound(s) (multiple) of unspecified site(s), without mention of complication 02/03/2010 08/05/2012 Dysplastic nevus of trunk 01/08/20092016 Melanocytic nevus of trunk 01/08/200908/05 Solar lentigo 01/08/2009 10/24/2009 Sun-damaged skin 01/08/2009 10/24/2009 Telangiectasia 01/08/2009 10/24/2009 Neoplasm of uncertain behavior of skin 9 10/24/2009 Knee pain 01/06/2009 10/24/2009 documented as of this encounter (statuses as of 07/20/2021) [facility] [place]01-18[facility]2017 History of Past illness Narrative* Problem Noted Date Resolved Date Gastrocnemius strain 04/28/2016 12/03/2019 Counseling and coordination of care 10/07/2014 12/17/2014 Lipoma 03/19/2014 04/22/2016 Closed fracture of fifth metatarsal bone with no nunion 02/09/2014 04/22/2016 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 02/09/2014 Essential hypertension, benign 08/05/2012 0 12/03/2019 Elevated BP 04/01/2012 08/05/2012 Arthritis 07/28/2011 12/03/2019 Open wound(s) (multiple) of unspecified site(s), without mention of complication 02/03/2010 08/05/2012 Dysplastic nevus of trunk 01/08/20092016 Melanocytic nevus of trunk 01/08/200908/05 Solar lentigo 01/08/2009 10/24/2009 Sun-damaged skin 01/08/2009 10/24/2009 Telangiectasia 01/08/2009 10/24/2009 Neoplasm of uncertain behavior of skin 9 10/24/2009 Knee pain 01/06/2009 10/24/2009 documented as of this encounter (statuses as of 07/23/2021) [facility] [place]-18[facility]2017 History of Past illness Narrative* Problem Noted Date Resolved Date Gastrocnemius strain 04/28/2016 12/03/2019 Counseling and coordination of care 10/07/2014 12/17/2014 Lipoma 03/19/2014 04/22/2016 Closed fracture of fifth metatarsal bone with no nunion 02/09/2014 04/22/2016 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 02/09/2014 Essential hypertension, benign 08/05/2012 0 12/03/2019 Elevated BP 04/01/2012 08/05/2012 Arthritis 07/28/2011 12/03/2019 Open wound(s) (multiple) of unspecified site(s), without mention of complication 02/03/2010 08/05/2012 Dysplastic nevus of trunk 01/08/20092016 Melanocytic nevus of trunk 01/08/200908/05 Solar lentigo 01/08/2009 10/24/2009 Sun-damaged skin 01/08/2009 10/24/2009 Telangiectasia 01/08/2009 10/24/2009 Neoplasm of uncertain behavior of skin 9 10/24/2009 Knee pain 01/06/2009 10/24/2009 documented as of this encounter (statuses as of 08/14/2021) [facility] [place]18[facility]2017 History of Past illness Narrative* Problem Noted Date Resolved Date Gastrocnemius strain 04/28/2016 12/03/2019 Counseling and coordination of care 10/07/2014 12/17/2014 Lipoma 03/19/2014 04/22/2016 Closed fracture of fifth metatarsal bone with no nunion 02/09/2014 04/22/2016 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 02/09/2014 Essential hypertension, benign 08/05/2012 0 12/03/2019 Elevated BP 04/01/2012 08/05/2012 Arthritis 07/28/2011 12/03/2019 Open wound(s) (multiple) of unspecified site(s), without mention of complication 02/03/2010 08/05/2012 Dysplastic nevus of trunk 01/08/20092016 Melanocytic nevus of trunk 01/08/200908/05 Solar lentigo 01/08/2009 10/24/2009 Sun-damaged skin 01/08/2009 10/24/2009 Telangiectasia 01/08/2009 10/24/2009 Neoplasm of uncertain behavior of skin 9 10/24/2009 Knee pain 01/06/2009 10/24/2009 documented as of this encounter (statuses as of 08/20/2021) [facility] [place]-18[facility]2017 History of Past illness Narrative* Problem Noted Date Resolved Date Gastrocnemius strain 04/28/2016 12/03/2019 Counseling and coordination of care 10/07/2014 12/17/2014 Lipoma 03/19/2014 04/22/2016 Closed fracture of fifth metatarsal bone with no nunion 02/09/2014 04/22/2016 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 02/09/2014 Essential hypertension, benign 08/05/2012 0 12/03/2019 Elevated BP 04/01/2012 08/05/2012 Arthritis 07/28/2011 12/03/2019 Open wound(s) (multiple) of unspecified site(s), without mention of complication 02/03/2010 08/05/2012 Dysplastic nevus of trunk 01/08/20092016 Melanocytic nevus of trunk 01/08/200908/05 Solar lentigo 01/08/2009 10/24/2009 Sun-damaged skin 01/08/2009 10/24/2009 Telangiectasia 01/08/2009 10/24/2009 Neoplasm of uncertain behavior of skin 9 10/24/2009 Knee pain 01/06/2009 10/24/2009 documented as of this encounter (statuses as of 08/24/2021) [facility] [place]18[facility]2017 History of Past illness Narrative* Problem Noted Date Resolved Date Gastrocnemius strain 04/28/2016 12/03/2019 Counseling and coordination of care 10/07/2014 12/17/2014 Lipoma 03/19/2014 04/22/2016 Closed fracture of fifth metatarsal bone with no nunion 02/09/2014 04/22/2016 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 02/09/2014 Essential hypertension, benign 08/05/2012 0 12/03/2019 Elevated BP 04/01/2012 08/05/2012 Arthritis 07/28/2011 12/03/2019 Open wound(s) (multiple) of unspecified site(s), without mention of complication 02/03/2010 08/05/2012 Dysplastic nevus of trunk 01/08/20092016 Melanocytic nevus of trunk 01/08/200908/05 Solar lentigo 01/08/2009 10/24/2009 Sun-damaged skin 01/08/2009 10/24/2009 Telangiectasia 01/08/2009 10/24/2009 Neoplasm of uncertain behavior of skin 9 10/24/2009 Knee pain 01/06/2009 10/24/2009 documented as of this encounter (statuses as of 08/27/2021) [facility] [place]01-18[facility]2017 History of Past illness Narrative* Problem Noted Date Resolved Date Gastrocnemius strain 04/28/2016 12/03/2019 Counseling and coordination of care 10/07/2014 12/17/2014 Lipoma 03/19/2014 04/22/2016 Closed fracture of fifth metatarsal bone with no nunion 02/09/2014 04/22/2016 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 02/09/2014 Essential hypertension, benign 08/05/2012 0 12/03/2019 Elevated BP 04/01/2012 08/05/2012 Arthritis 07/28/2011 12/03/2019 Open wound(s) (multiple) of unspecified site(s), without mention of complication 02/03/2010 08/05/2012 Dysplastic nevus of trunk 01/08/20092016 Melanocytic nevus of trunk 01/08/200908/05 Solar lentigo 01/08/2009 10/24/2009 Sun-damaged skin 01/08/2009 10/24/2009 Telangiectasia 01/08/2009 10/24/2009 Neoplasm of uncertain behavior of skin 9 10/24/2009 Knee pain 01/06/2009 10/24/2009 documented as of this encounter (statuses as of 08/27/2021) [facility] [place]2017 History of Past illness Narrative* Problem Noted Date Resolved Date Gastrocnemius strain 04/28/2016 12/03/2019 Counseling and coordination of care 10/07/2014 12/17/2014 Lipoma 03/19/2014 04/22/2016 Closed fracture of fifth metatarsal bone with no nunion 02/09/2014 04/22/2016 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 02/09/2014 Essential hypertension, benign 08/05/2012 0 12/03/2019 Elevated BP 04/01/2012 08/05/2012 Arthritis 07/28/2011 12/03/2019 Open wound(s) (multiple) of unspecified site(s), without mention of complication 02/03/2010 08/05/2012 Dysplastic nevus of trunk 01/08/20092016 Melanocytic nevus of trunk 01/08/200908/05 Solar lentigo 01/08/2009 10/24/2009 Sun-damaged skin 01/08/2009 10/24/2009 Telangiectasia 01/08/2009 10/24/2009 Neoplasm of uncertain behavior of skin 9 10/24/2009 Knee pain 01/06/2009 10/24/2009 documented as of this encounter (statuses as of 09/04/2021) [facility] [place]01[facility]18[facility]2017 History of Past illness Narrative* Problem Noted Date Resolved Date Gastrocnemius strain 04/28/2016 12/03/2019 Counseling and coordination of care 10/07/2014 12/17/2014 Lipoma 03/19/2014 04/22/2016 Closed fracture of fifth metatarsal bone with no nunion 02/09/2014 04/22/2016 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 02/09/2014 Essential hypertension, benign 08/05/2012 0 12/03/2019 Elevated BP 04/01/2012 08/05/2012 Arthritis 07/28/2011 12/03/2019 Open wound(s) (multiple) of unspecified site(s), without mention of complication 02/03/2010 08/05/2012 Dysplastic nevus of trunk 01/08/20092016 Melanocytic nevus of trunk 01/08/200908/05 Solar lentigo 01/08/2009 10/24/2009 Sun-damaged skin 01/08/2009 10/24/2009 Telangiectasia 01/08/2009 10/24/2009 Neoplasm of uncertain behavior of skin 9 10/24/2009 Knee pain 01/06/2009 10/24/2009 documented as of this encounter (statuses as of 09/04/2021) [facility] [place]2017 History of Past illness Narrative* Problem Noted Date Resolved Date Gastrocnemius strain 04/28/2016 12/03/2019 Counseling and coordination of care 10/07/2014 12/17/2014 Lipoma 03/19/2014 04/22/2016 Closed fracture of fifth metatarsal bone with no nunion 02/09/2014 04/22/2016 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 02/09/2014 Essential hypertension, benign 08/05/2012 0 12/03/2019 Elevated BP 04/01/2012 08/05/2012 Arthritis 07/28/2011 12/03/2019 Open wound(s) (multiple) of unspecified site(s), without mention of complication 02/03/2010 08/05/2012 Dysplastic nevus of trunk 01/08/20092016 Melanocytic nevus of trunk 01/08/200908/05 Solar lentigo 01/08/2009 10/24/2009 Sun-damaged skin 01/08/2009 10/24/2009 Telangiectasia 01/08/2009 10/24/2009 Neoplasm of uncertain behavior of skin 9 10/24/2009 Knee pain 01/06/2009 10/24/2009 documented as of this encounter (statuses as of 10/24/2021) [facility] [place]01[facility]18[facility]2017 History of Past illness Narrative* Problem Noted Date Resolved Date Gastrocnemius strain 04/28/2016 12/03/2019 Counseling and coordination of care 10/07/2014 12/17/2014 Lipoma 03/19/2014 04/22/2016 Closed fracture of fifth metatarsal bone with no nunion 02/09/2014 04/22/2016 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 02/09/2014 Essential hypertension, benign 08/05/2012 0 12/03/2019 Elevated BP 04/01/2012 08/05/2012 Arthritis 07/28/2011 12/03/2019 Open wound(s) (multiple) of unspecified site(s), without mention of complication 02/03/2010 08/05/2012 Dysplastic nevus of trunk 01/08/20092016 Melanocytic nevus of trunk 01/08/200908/05 Solar lentigo 01/08/2009 10/24/2009 Sun-damaged skin 01/08/2009 10/24/2009 Telangiectasia 01/08/2009 10/24/2009 Neoplasm of uncertain behavior of skin 9 10/24/2009 Knee pain 01/06/2009 10/24/2009 documented as of this encounter (statuses as of 12/08/2021) [facility] [place]01[facility]18[facility]2017 History of Past illness Narrative* Problem Noted Date Resolved Date Gastrocnemius strain 04/28/2016 12/03/2019 Counseling and coordination of care 10/07/2014 12/17/2014 Lipoma 03/19/2014 04/22/2016 Closed fracture of fifth metatarsal bone with no nunion 02/09/2014 04/22/2016 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 02/09/2014 Essential hypertension, benign 08/05/2012 0 12/03/2019 Elevated BP 04/01/2012 08/05/2012 Arthritis 07/28/2011 12/03/2019 Open wound(s) (multiple) of unspecified site(s), without mention of complication 02/03/2010 08/05/2012 Dysplastic nevus of trunk 01/08/20092016 Melanocytic nevus of trunk 01/08/200908/05 Solar lentigo 01/08/2009 10/24/2009 Sun-damaged skin 01/08/2009 10/24/2009 Telangiectasia 01/08/2009 10/24/2009 Neoplasm of uncertain behavior of skin 9 10/24/2009 Knee pain 01/06/2009 10/24/2009 documented as of this encounter (statuses as of 03/29/2022) [facility] [place]01[facility]18[facility]2017 History of Past illness Narrative* Problem Noted Date Resolved Date Gastrocnemius strain 04/28/2016 12/03/2019 Counseling and coordination of care 10/07/2014 12/17/2014 Lipoma 03/19/2014 04/22/2016 Closed fracture of fifth metatarsal bone with no nunion 02/09/2014 04/22/2016 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 02/09/2014 Essential hypertension, benign 08/05/2012 0 12/03/2019 Elevated BP 04/01/2012 08/05/2012 Arthritis 07/28/2011 12/03/2019 Open wound(s) (multiple) of unspecified site(s), without mention of complication 02/03/2010 08/05/2012 Dysplastic nevus of trunk 01/08/20092016 Melanocytic nevus of trunk 01/08/200908/05 Solar lentigo 01/08/2009 10/24/2009 Sun-damaged skin 01/08/2009 10/24/2009 Telangiectasia 01/08/2009 10/24/2009 Neoplasm of uncertain behavior of skin 9 10/24/2009 Knee pain 01/06/2009 10/24/2009 documented as of this encounter (statuses as of 05/25/2022) [facility] [place]2017 History of Past illness Narrative* Problem Noted Date Resolved Date Gastrocnemius strain 04/28/2016 12/03/2019 Counseling and coordination of care 10/07/2014 12/17/2014 Lipoma 03/19/2014 04/22/2016 Closed fracture of fifth metatarsal bone with no nunion 02/09/2014 04/22/2016 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 02/09/2014 Essential hypertension, benign 08/05/2012 0 12/03/2019 Elevated BP 04/01/2012 08/05/2012 Arthritis 07/28/2011 12/03/2019 Open wound(s) (multiple) of unspecified site(s), without mention of complication 02/03/2010 08/05/2012 Dysplastic nevus of trunk 01/08/20092016 Melanocytic nevus of trunk 01/08/200908/05 Solar lentigo 01/08/2009 10/24/2009 Sun-damaged skin 01/08/2009 10/24/2009 Telangiectasia 01/08/2009 10/24/2009 Neoplasm of uncertain behavior of skin 9 10/24/2009 Knee pain 01/06/2009 10/24/2009 documented as of this encounter (statuses as of 10/01/2022) [facility] [place]2017 History of Past illness Narrative* Problem Noted Date Diagnosed Date Resolved Date Gastrocnemius strain 04/28/2016 020 Counseling and coordination of care 10/07/2014 12/17/2014 Lipoma 03/19/2014 04/22/2016 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 02/09/2014 04/22/2016 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 014 Essential hypertension, benign 08/05/2012 12/03/2019 Elevated BP 04/01/2012 08/05/2012 Arthritis 07/28/2011 12/03/2019 Open wound(s) (multiple) of unspecified site(s), without mention of complication 02/03/2010 08/05/2012 Dysplastic nevus of trunk 01/08/2009 Melanocytic nevus of trunk 01/08/2009 0 08/05/2012 Solar lentigo 01/08/2009 10/24/2009 Sun-damaged skin 01/08/2009 10/24/2009 Telangiectasia 01/08/2009 10/24/2009 Neoplasm of uncertain behavior of skin 01/08/2009 10/24/2009 Knee pain 01/06/2009 10/24/2009 documented as of this encounter (statuses as of 10/20/2022) [facility] [place]2017 History of Past illness Narrative* Problem Noted Date Diagnosed Date Resolved Date Gastrocnemius strain 04/28/2016 020 Counseling and coordination of care 10/07/2014 12/17/2014 Lipoma 03/19/2014 04/22/2016 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 02/09/2014 04/22/2016 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 014 Essential hypertension, benign 08/05/2012 12/03/2019 Elevated BP 04/01/2012 08/05/2012 Arthritis 07/28/2011 12/03/2019 Open wound(s) (multiple) of unspecified site(s), without mention of complication 02/03/2010 08/05/2012 Dysplastic nevus of trunk 01/08/2009 Melanocytic nevus of trunk 01/08/2009 0 08/05/2012 Solar lentigo 01/08/2009 10/24/2009 Sun-damaged skin 01/08/2009 10/24/2009 Telangiectasia 01/08/2009 10/24/2009 Neoplasm of uncertain behavior of skin 01/08/2009 10/24/2009 Knee pain 01/06/2009 10/24/2009 documented as of this encounter (statuses as of 10/27/2022) [facility] [place]2017 History of Past illness Narrative* Problem Noted Date Diagnosed Date Resolved Date Gastrocnemius strain 04/28/2016 020 Hyperlipidemia 02/16/2015 12/27/2022 NSTEMI (non-ST elevated myoc ardial infarction) 02/16/2015 12/27/2022 Counseling and coordination of care 10/07/2014 12/17/2014 Lipoma 03/19/2014 04/22/2016 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 02/09/2014 04/22/2016 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 014 Essential hypertension, benign 08/05/2012 12/03/2019 Elevated BP 04/01/2012 08/05/2012 Arthritis 07/28/2011 12/03/2019 Open wound(s) (multiple) of unspecified site(s), without mention of complication 02/03/2010 08/05/2012 Dysplastic nevus of trunk 01/08/2009 Melanocytic nevus of trunk 01/08/2009 0 08/05/2012 Solar lentigo 01/08/2009 10/24/2009 Sun-damaged skin 01/08/2009 10/24/2009 Telangiectasia 01/08/2009 10/24/2009 Neoplasm of uncertain behavior of skin 01/08/2009 10/24/2009 Knee pain 01/06/2009 10/24/2009 documented as of this encounter (statuses as of 12/28/2022) [facility] [place]2017 History of Past illness Narrative* Problem Noted Date Diagnosed Date Resolved Date Gastrocnemius strain 04/28/2016 020 Hyperlipidemia 02/16/2015 12/27/2022 NSTEMI (non-ST elevated myoc ardial infarction) 02/16/2015 12/27/2022 Counseling and coordination of care 10/07/2014 12/17/2014 Lipoma 03/19/2014 04/22/2016 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 02/09/2014 04/22/2016 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 014 Essential hypertension, benign 08/05/2012 12/03/2019 Elevated BP 04/01/2012 08/05/2012 Arthritis 07/28/2011 12/03/2019 Open wound(s) (multiple) of unspecified site(s), without mention of complication 02/03/2010 08/05/2012 Dysplastic nevus of trunk 01/08/2009 Melanocytic nevus of trunk 01/08/2009 0 08/05/2012 Solar lentigo 01/08/2009 10/24/2009 Sun-damaged skin 01/08/2009 10/24/2009 Telangiectasia 01/08/2009 10/24/2009 Neoplasm of uncertain behavior of skin 01/08/2009 10/24/2009 Knee pain 01/06/2009 10/24/2009 documented as of this encounter (statuses as of 12/30/2022) [facility] [place] History of Past illness Narrative* Problem Noted Date Diagnosed Date Resolved Date Gastrocnemius strain 04/28/2016 020 Hyperlipidemia 02/16/2015 12/27/2022 NSTEMI (non-ST elevated myoc ardial infarction) 02/16/2015 12/27/2022 Counseling and coordination of care 10/07/2014 12/17/2014 Lipoma 03/19/2014 04/22/2016 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 02/09/2014 04/22/2016 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 014 Essential hypertension, benign 08/05/2012 12/03/2019 Elevated BP 04/01/2012 08/05/2012 Arthritis 07/28/2011 12/03/2019 Open wound(s) (multiple) of unspecified site(s), without mention of complication 02/03/2010 08/05/2012 Dysplastic nevus of trunk 01/08/2009 Melanocytic nevus of trunk 01/08/2009 0 08/05/2012 Solar lentigo 01/08/2009 10/24/2009 Sun-damaged skin 01/08/2009 10/24/2009 Telangiectasia 01/08/2009 10/24/2009 Neoplasm of uncertain behavior of skin 01/08/2009 10/24/2009 Knee pain 01/06/2009 10/24/2009 documented as of this encounter (statuses as of 01/27/2023) [facility] [place] History of Past illness Narrative* Problem Noted Date Diagnosed Date Resolved Date Gastrocnemius strain 04/28/2016 020 Hyperlipidemia 02/16/2015 12/27/2022 NSTEMI (non-ST elevated myoc ardial infarction) 02/16/2015 12/27/2022 Counseling and coordination of care 10/07/2014 12/17/2014 Lipoma 03/19/2014 04/22/2016 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 02/09/2014 04/22/2016 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 014 Essential hypertension, benign 08/05/2012 12/03/2019 Elevated BP 04/01/2012 08/05/2012 Arthritis 07/28/2011 12/03/2019 Open wound(s) (multiple) of unspecified site(s), without mention of complication 02/03/2010 08/05/2012 Dysplastic nevus of trunk 01/08/2009 Melanocytic nevus of trunk 01/08/2009 0 08/05/2012 Solar lentigo 01/08/2009 10/24/2009 Sun-damaged skin 01/08/2009 10/24/2009 Telangiectasia 01/08/2009 10/24/2009 Neoplasm of uncertain behavior of skin 01/08/2009 10/24/2009 Knee pain 01/06/2009 10/24/2009 documented as of this encounter (statuses as of 01/28/2023) [facility] [place] History of Past illness Narrative* Problem Noted Date Diagnosed Date Resolved Date Gastrocnemius strain 04/28/2016 020 Hyperlipidemia 02/16/2015 12/27/2022 NSTEMI (non-ST elevated myoc ardial infarction) 02/16/2015 12/27/2022 Counseling and coordination of care 10/07/2014 12/17/2014 Lipoma 03/19/2014 04/22/2016 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 02/09/2014 04/22/2016 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 014 Essential hypertension, benign 08/05/2012 12/03/2019 Elevated BP 04/01/2012 08/05/2012 Arthritis 07/28/2011 12/03/2019 Open wound(s) (multiple) of unspecified site(s), without mention of complication 02/03/2010 08/05/2012 Dysplastic nevus of trunk 01/08/2009 Melanocytic nevus of trunk 01/08/2009 0 08/05/2012 Solar lentigo 01/08/2009 10/24/2009 Sun-damaged skin 01/08/2009 10/24/2009 Telangiectasia 01/08/2009 10/24/2009 Neoplasm of uncertain behavior of skin 01/08/2009 10/24/2009 Knee pain 01/06/2009 10/24/2009 documented as of this encounter (statuses as of 02/07/2023) [facility] [facility] [place] History of Past illness Narrative* Problem Noted Date Diagnosed Date Resolved Date Gastrocnemius strain 04/28/2016 020 Hyperlipidemia 02/16/2015 12/27/2022 NSTEMI (non-ST elevated myoc ardial infarction) 02/16/2015 12/27/2022 Counseling and coordination of care 10/07/2014 12/17/2014 Lipoma 03/19/2014 04/22/2016 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 02/09/2014 04/22/2016 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 014 Essential hypertension, benign 08/05/2012 12/03/2019 Elevated BP 04/01/2012 08/05/2012 Arthritis 07/28/2011 12/03/2019 Open wound(s) (multiple) of unspecified site(s), without mention of complication 02/03/2010 08/05/2012 Dysplastic nevus of trunk 01/08/2009 Melanocytic nevus of trunk 01/08/2009 0 08/05/2012 Solar lentigo 01/08/2009 10/24/2009 Sun-damaged skin 01/08/2009 10/24/2009 Telangiectasia 01/08/2009 10/24/2009 Neoplasm of uncertain behavior of skin 01/08/2009 10/24/2009 Knee pain 01/06/2009 10/24/2009 documented as of this encounter (statuses as of 02/08/2023) [facility] [place] History of Past illness Narrative* Problem Noted Date Diagnosed Date Resolved Date Gastrocnemius strain 04/28/2016 020 Hyperlipidemia 02/16/2015 12/27/2022 NSTEMI (non-ST elevated myoc ardial infarction) 02/16/2015 12/27/2022 Counseling and coordination of care 10/07/2014 12/17/2014 Lipoma 03/19/2014 04/22/2016 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 02/09/2014 04/22/2016 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 014 Essential hypertension, benign 08/05/2012 12/03/2019 Elevated BP 04/01/2012 08/05/2012 Arthritis 07/28/2011 12/03/2019 Open wound(s) (multiple) of unspecified site(s), without mention of complication 02/03/2010 08/05/2012 Dysplastic nevus of trunk 01/08/2009 Melanocytic nevus of trunk 01/08/2009 0 08/05/2012 Solar lentigo 01/08/2009 10/24/2009 Sun-damaged skin 01/08/2009 10/24/2009 Telangiectasia 01/08/2009 10/24/2009 Neoplasm of uncertain behavior of skin 01/08/2009 10/24/2009 Knee pain 01/06/2009 10/24/2009 documented as of this encounter (statuses as of 02/12/2023) [facility] [place] History of Past illness Narrative* Problem Noted Date Diagnosed Date Resolved Date Gastrocnemius strain 04/28/2016 020 Hyperlipidemia 02/16/2015 12/27/2022 NSTEMI (non-ST elevated myoc ardial infarction) 02/16/2015 12/27/2022 Counseling and coordination of care 10/07/2014 12/17/2014 Lipoma 03/19/2014 04/22/2016 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 02/09/2014 04/22/2016 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 014 Essential hypertension, benign 08/05/2012 12/03/2019 Elevated BP 04/01/2012 08/05/2012 Arthritis 07/28/2011 12/03/2019 Open wound(s) (multiple) of unspecified site(s), without mention of complication 02/03/2010 08/05/2012 Dysplastic nevus of trunk 01/08/2009 Melanocytic nevus of trunk 01/08/2009 0 08/05/2012 Solar lentigo 01/08/2009 10/24/2009 Sun-damaged skin 01/08/2009 10/24/2009 Telangiectasia 01/08/2009 10/24/2009 Neoplasm of uncertain behavior of skin 01/08/2009 10/24/2009 Knee pain 01/06/2009 10/24/2009 documented as of this encounter (statuses as of 02/23/2023) [facility] [place] History of Past illness Narrative* Problem Noted Date Diagnosed Date Resolved Date Gastrocnemius strain 04/28/2016 020 Hyperlipidemia 02/16/2015 12/27/2022 NSTEMI (non-ST elevated myoc ardial infarction) 02/16/2015 12/27/2022 Counseling and coordination of care 10/07/2014 12/17/2014 Lipoma 03/19/2014 04/22/2016 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 02/09/2014 04/22/2016 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 014 Essential hypertension, benign 08/05/2012 12/03/2019 Elevated BP 04/01/2012 08/05/2012 Arthritis 07/28/2011 12/03/2019 Open wound(s) (multiple) of unspecified site(s), without mention of complication 02/03/2010 08/05/2012 Dysplastic nevus of trunk 01/08/2009 Melanocytic nevus of trunk 01/08/2009 0 08/05/2012 Solar lentigo 01/08/2009 10/24/2009 Sun-damaged skin 01/08/2009 10/24/2009 Telangiectasia 01/08/2009 10/24/2009 Neoplasm of uncertain behavior of skin 01/08/2009 10/24/2009 Knee pain 01/06/2009 10/24/2009 documented as of this encounter (statuses as of 02/25/2023) [facility] [place] History of Past illness Narrative* Problem Noted Date Diagnosed Date Resolved Date Gastrocnemius strain 04/28/2016 020 Hyperlipidemia 02/16/2015 12/27/2022 NSTEMI (non-ST elevated myoc ardial infarction) 02/16/2015 12/27/2022 Counseling and coordination of care 10/07/2014 12/17/2014 Lipoma 03/19/2014 04/22/2016 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 02/09/2014 04/22/2016 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 014 Essential hypertension, benign 08/05/2012 12/03/2019 Elevated BP 04/01/2012 08/05/2012 Arthritis 07/28/2011 12/03/2019 Open wound(s) (multiple) of unspecified site(s), without mention of complication 02/03/2010 08/05/2012 Dysplastic nevus of trunk 01/08/2009 Melanocytic nevus of trunk 01/08/2009 0 08/05/2012 Solar lentigo 01/08/2009 10/24/2009 Sun-damaged skin 01/08/2009 10/24/2009 Telangiectasia 01/08/2009 10/24/2009 Neoplasm of uncertain behavior of skin 01/08/2009 10/24/2009 Knee pain 01/06/2009 10/24/2009 documented as of this encounter (statuses as of 03/01/2023) [facility] [place] History of Past illness Narrative* Problem Noted Date Diagnosed Date Resolved Date Gastrocnemius strain 04/28/2016 020 Hyperlipidemia 02/16/2015 12/27/2022 NSTEMI (non-ST elevated myoc ardial infarction) 02/16/2015 12/27/2022 Counseling and coordination of care 10/07/2014 12/17/2014 Lipoma 03/19/2014 04/22/2016 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 02/09/2014 04/22/2016 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 014 Essential hypertension, benign 08/05/2012 12/03/2019 Elevated BP 04/01/2012 08/05/2012 Arthritis 07/28/2011 12/03/2019 Open wound(s) (multiple) of unspecified site(s), without mention of complication 02/03/2010 08/05/2012 Dysplastic nevus of trunk 01/08/2009 Melanocytic nevus of trunk 01/08/2009 0 08/05/2012 Solar lentigo 01/08/2009 10/24/2009 Sun-damaged skin 01/08/2009 10/24/2009 Telangiectasia 01/08/2009 10/24/2009 Neoplasm of uncertain behavior of skin 01/08/2009 10/24/2009 Knee pain 01/06/2009 10/24/2009 documented as of this encounter (statuses as of 03/04/2023) [facility] [place] History of Past illness Narrative* Problem Noted Date Diagnosed Date Resolved Date Gastrocnemius strain 04/28/2016 020 Hyperlipidemia 02/16/2015 12/27/2022 NSTEMI (non-ST elevated myoc ardial infarction) 02/16/2015 12/27/2022 Counseling and coordination of care 10/07/2014 12/17/2014 Lipoma 03/19/2014 04/22/2016 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 02/09/2014 04/22/2016 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 014 Essential hypertension, benign 08/05/2012 12/03/2019 Elevated BP 04/01/2012 08/05/2012 Arthritis 07/28/2011 12/03/2019 Open wound(s) (multiple) of unspecified site(s), without mention of complication 02/03/2010 08/05/2012 Dysplastic nevus of trunk 01/08/2009 Melanocytic nevus of trunk 01/08/2009 0 08/05/2012 Solar lentigo 01/08/2009 10/24/2009 Sun-damaged skin 01/08/2009 10/24/2009 Telangiectasia 01/08/2009 10/24/2009 Neoplasm of uncertain behavior of skin 01/08/2009 10/24/2009 Knee pain 01/06/2009 10/24/2009 documented as of this encounter (statuses as of 03/11/2023) [facility] [place] History of Past illness Narrative* Problem Noted Date Diagnosed Date Resolved Date Gastrocnemius strain 04/28/2016 020 Hyperlipidemia 02/16/2015 12/27/2022 NSTEMI (non-ST elevated myoc ardial infarction) 02/16/2015 12/27/2022 Counseling and coordination of care 10/07/2014 12/17/2014 Lipoma 03/19/2014 04/22/2016 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 02/09/2014 04/22/2016 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 014 Essential hypertension, benign 08/05/2012 12/03/2019 Elevated BP 04/01/2012 08/05/2012 Arthritis 07/28/2011 12/03/2019 Open wound(s) (multiple) of unspecified site(s), without mention of complication 02/03/2010 08/05/2012 Dysplastic nevus of trunk 01/08/2009 Melanocytic nevus of trunk 01/08/2009 0 08/05/2012 Solar lentigo 01/08/2009 10/24/2009 Sun-damaged skin 01/08/2009 10/24/2009 Telangiectasia 01/08/2009 10/24/2009 Neoplasm of uncertain behavior of skin 01/08/2009 10/24/2009 Knee pain 01/06/2009 10/24/2009 documented as of this encounter (statuses as of 03/15/2023) [facility] [place] History of Past illness Narrative* Problem Noted Date Diagnosed Date Resolved Date Gastrocnemius strain 04/28/2016 020 Hyperlipidemia 02/16/2015 12/27/2022 NSTEMI (non-ST elevated myoc ardial infarction) 02/16/2015 12/27/2022 Counseling and coordination of care 10/07/2014 12/17/2014 Lipoma 03/19/2014 04/22/2016 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 02/09/2014 04/22/2016 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 014 Essential hypertension, benign 08/05/2012 12/03/2019 Elevated BP 04/01/2012 08/05/2012 Arthritis 07/28/2011 12/03/2019 Open wound(s) (multiple) of unspecified site(s), without mention of complication 02/03/2010 08/05/2012 Dysplastic nevus of trunk 01/08/2009 Melanocytic nevus of trunk 01/08/2009 0 08/05/2012 Solar lentigo 01/08/2009 10/24/2009 Sun-damaged skin 01/08/2009 10/24/2009 Telangiectasia 01/08/2009 10/24/2009 Neoplasm of uncertain behavior of skin 01/08/2009 10/24/2009 Knee pain 01/06/2009 10/24/2009 documented as of this encounter (statuses as of 03/18/2023) [facility] [place] History of Past illness Narrative* Problem Noted Date Diagnosed Date Resolved Date Gastrocnemius strain 04/28/2016 020 Hyperlipidemia 02/16/2015 12/27/2022 NSTEMI (non-ST elevated myoc ardial infarction) 02/16/2015 12/27/2022 Counseling and coordination of care 10/07/2014 12/17/2014 Lipoma 03/19/2014 04/22/2016 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 02/09/2014 04/22/2016 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 014 Essential hypertension, benign 08/05/2012 12/03/2019 Elevated BP 04/01/2012 08/05/2012 Arthritis 07/28/2011 12/03/2019 Open wound(s) (multiple) of unspecified site(s), without mention of complication 02/03/2010 08/05/2012 Dysplastic nevus of trunk 01/08/2009 Melanocytic nevus of trunk 01/08/2009 0 08/05/2012 Solar lentigo 01/08/2009 10/24/2009 Sun-damaged skin 01/08/2009 10/24/2009 Telangiectasia 01/08/2009 10/24/2009 Neoplasm of uncertain behavior of skin 01/08/2009 10/24/2009 Knee pain 01/06/2009 10/24/2009 documented as of this encounter (statuses as of 03/22/2023) [facility] [place]2017 History of Past illness Narrative* Problem Noted Date Diagnosed Date Resolved Date Gastrocnemius strain 04/28/2016 020 Hyperlipidemia 02/16/2015 12/27/2022 NSTEMI (non-ST elevated myoc ardial infarction) 02/16/2015 12/27/2022 Counseling and coordination of care 10/07/2014 12/17/2014 Lipoma 03/19/2014 04/22/2016 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 02/09/2014 04/22/2016 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 014 Essential hypertension, benign 08/05/2012 12/03/2019 Elevated BP 04/01/2012 08/05/2012 Arthritis 07/28/2011 12/03/2019 Open wound(s) (multiple) of unspecified site(s), without mention of complication 02/03/2010 08/05/2012 Dysplastic nevus of trunk 01/08/2009 Melanocytic nevus of trunk 01/08/2009 0 08/05/2012 Solar lentigo 01/08/2009 10/24/2009 Sun-damaged skin 01/08/2009 10/24/2009 Telangiectasia 01/08/2009 10/24/2009 Neoplasm of uncertain behavior of skin 01/08/2009 10/24/2009 Knee pain 01/06/2009 10/24/2009 documented as of this encounter (statuses as of 03/26/2023) [facility] [place] History of Past illness Narrative* Problem Noted Date Diagnosed Date Resolved Date Gastrocnemius strain 04/28/2016 020 Hyperlipidemia 02/16/2015 12/27/2022 NSTEMI (non-ST elevated myoc ardial infarction) 02/16/2015 12/27/2022 Counseling and coordination of care 10/07/2014 12/17/2014 Lipoma 03/19/2014 04/22/2016 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 02/09/2014 04/22/2016 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 014 Essential hypertension, benign 08/05/2012 12/03/2019 Elevated BP 04/01/2012 08/05/2012 Arthritis 07/28/2011 12/03/2019 Open wound(s) (multiple) of unspecified site(s), without mention of complication 02/03/2010 08/05/2012 Dysplastic nevus of trunk 01/08/2009 Melanocytic nevus of trunk 01/08/2009 0 08/05/2012 Solar lentigo 01/08/2009 10/24/2009 Sun-damaged skin 01/08/2009 10/24/2009 Telangiectasia 01/08/2009 10/24/2009 Neoplasm of uncertain behavior of skin 01/08/2009 10/24/2009 Knee pain 01/06/2009 10/24/2009 documented as of this encounter (statuses as of 05/12/2023) [facility] [place] History of Past illness Narrative* Problem Noted Date Diagnosed Date Resolved Date Gastrocnemius strain 04/28/2016 020 Hyperlipidemia 02/16/2015 12/27/2022 NSTEMI (non-ST elevated myoc ardial infarction) 02/16/2015 12/27/2022 Counseling and coordination of care 10/07/2014 12/17/2014 Lipoma 03/19/2014 04/22/2016 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 02/09/2014 04/22/2016 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 014 Essential hypertension, benign 08/05/2012 12/03/2019 Elevated BP 04/01/2012 08/05/2012 Arthritis 07/28/2011 12/03/2019 Open wound(s) (multiple) of unspecified site(s), without mention of complication 02/03/2010 08/05/2012 Dysplastic nevus of trunk 01/08/2009 Melanocytic nevus of trunk 01/08/2009 0 08/05/2012 Solar lentigo 01/08/2009 10/24/2009 Sun-damaged skin 01/08/2009 10/24/2009 Telangiectasia 01/08/2009 10/24/2009 Neoplasm of uncertain behavior of skin 01/08/2009 10/24/2009 Knee pain 01/06/2009 10/24/2009 documented as of this encounter (statuses as of 05/17/2023) [facility] [place] [facility] Left wrist tendinitis- Primary Bursitis and tendinitis of shoulder region [facility] Diagnosis Pain- Primary Generalized pain [facility] [place] [facility] Diagnosis Acute otitis media, right- Primary Unspecified otitis media Pain, dental Unspecified disorder of the teeth and supporting structures documented in this encounter [facility] note* Diagnosis NSTEMI (non-ST elevated myocardial infarction) (HCC)- Primary Acute myocardial infarction, subendocardial infarction, episode of care unspecified Essential hypertension, benign Medication refill Issue of repeat prescriptions ANÍBAL (obstructive sleep apnea) Obstructive sleep apnea (adult) (pediatric) Coronary artery disease involving [place] coronary artery of [place] heart without angina pectoris documented in this encounter [facility] note* Diagnosis Screening for colon cancer Special screening for malignant neoplasms, colon Gastroesophageal reflux disease, unspecified whether esophagitis present documented in this encounter [facility] note* Diagnosis Lesion of epiglottis- Primary documented in this encounter [facility] note* Diagnosis Lesion of epiglottis- Primary Gastroesophageal reflux disease, unspecified whether esophagitis present Long-term current use of proton pump inhibitor therapy documented in this encounter [facility] note* Diagnosis Capsulitis of metatarsophalangeal (MTP) joint of right foot- Primary History of fracture of foot Personal history of traumatic fracture Chronic foot pain, unspecified laterality documented in this encounter [facility] note* Diagnosis Poor concentration Attention or concentration deficit documented in this encounter [facility] note* Diagnosis Jaw pain, non-TMJ- Primary Jaw pain documented in this encounter [facility] note* Diagnosis Presbyopia- Primary Regular astigmatism, bilateral [facility] Diagnosis Primary osteoarthritis of right knee- Primary Left wrist tendinitis documented in this encounter [facility]* Diagnosis Elevated glucose- Primary Other abnormal glucose documented in this encounter [facility] note* Diagnosis Primary osteoarthritis of right knee- Primary Trigger middle finger of right hand Arthralgia, unspecified joint Polyarthralgia Pain in joint, multiple sites documented in this encounter [facility] note* Diagnosis Essential hypertension, benign Medication refill Issue of repeat prescriptions documented in this encounter [facility] note* Diagnosis NSTEMI (non-ST elevated myocardial infarction) (HCC)- Primary Acute myocardial infarction, subendocardial infarction, episode of care unspecified ANÍBAL (obstructive sleep apnea) Obstructive sleep apnea (adult) (pediatric) Essential hypertension, benign Coronary artery disease involving [place] coronary artery of [place] heart without angina pectoris Pre-op evaluation Preoperative examination, unspecified documented in this encounter [facility] note* Diagnosis Primary osteoarthritis of right knee- Primary Primary localized osteoarthrosis, lower leg Encounter for immunization Need for other specified prophylactic vaccination against single bacterial disease Hyperlipidemia, unspecified hyperlipidemia type Primary hypertension Unspecified essential hypertension ANÍBAL (obstructive sleep apnea) Obstructive sleep apnea (adult) (pediatric) Hyperglycemia Other abnormal glucose [facility] Diagnosis Presbyopia- Primary Regular astigmatism, left eye [facility] Diagnosis Status post total knee replacement, right- Primary Primary osteoarthritis of right knee Primary localized osteoarthrosis, lower leg [facility] Diagnosis Status post total knee replacement, right- Primary Primary osteoarthritis of right knee Primary localized osteoarthrosis, lower leg documented in this encounter [facility] note* Diagnosis Status post total knee replacement, right- Primary Primary osteoarthritis of right knee Primary localized osteoarthrosis, lower leg [facility] Diagnosis Status post total knee replacement, right- Primary Primary osteoarthritis of right knee Primary localized osteoarthrosis, lower leg [facility] Diagnosis Status post total knee replacement, right- Primary Primary osteoarthritis of right knee Primary localized osteoarthrosis, lower leg [facility] Diagnosis Status post total knee replacement, right- Primary Primary osteoarthritis of right knee Primary localized osteoarthrosis, lower leg [facility] Diagnosis Status post total knee replacement, right- Primary Primary osteoarthritis of right knee Primary localized osteoarthrosis, lower leg [facility] Diagnosis Status post total knee replacement, right- Primary Primary osteoarthritis of right knee Primary localized osteoarthrosis, lower leg documented [facility] [place] [facility] Diagnosis Status post total knee replacement, right- Primary Primary osteoarthritis of right knee Primary localized osteoarthrosis, lower leg [facility] Diagnosis Status post total knee replacement, right- Primary [facility] Diagnosis Status post total knee replacement, right- Primary History of CT (myocardial infarction) Old myocardial infarction ANÍBAL (obstructive sleep apnea) Obstructive sleep apnea (adult) (pediatric) Bilateral lower extremity edema Edema Prediabetes Other abnormal glucose Acute frontal sinusitis, recurrence not specified documented in this encounter [facility] for referral (narrative)* Diagnostic Procedure Only (Routine) - Authorized Specialty Diagnoses / Procedures [facility] XR IMAGING Diagnoses Pain Procedures XR FOOT GENERAL 3V AP/LAT/OBL BILATERAL RADEX FOOT COMPLETE MINIMUM 3 VIEWS Virginia Stevens DPM [address] [place] [address] Xr Imaging Referral ID Status Reason Start Date Expiration Date Visits Requested Visits Authorized [id number] Authorized Auto-Generat ed Referral 07/14/2021 08/13/2022 1 1 [facility] for referral (narrative)* Outpatient Procedure (Routine) - Closed Specialty Diagnoses / Procedures [facility] Diagnoses Essential hypertension, benign Medication refill NSTEMI (non-ST elevated myocardial infarction) (HCC) ANÍBAL (obstructive sleep apnea) Coronary artery disease involving [place] coronary artery of [place] heart without angina pectoris Procedures ECG COMPLETE ECG ROUTINE ECG W/LEAST 12 LDS W/I&[place] [address] [place] [address] [facility] [place] [address] [place] [id number] Referral ID Status Reason Start Date Expiration Date V isits Requested Visits Authorized [id number] Closed Auto-Generate d Referral 08/14/2021 08/14/2022 1 1 [facility] for referral (narrative)* Outpatient Procedure (Routine) - Closed Specialty Diagnoses / Procedures [facility] Diagnoses Gastroesophageal reflux disease, unspecified whether esophagitis present Procedures EGD DIAGNOSTIC ESOPHAGOGASTRODUODENOSC OPY TRANSORAL DIAGNOSTIC Smiley Huitron PA-C [address] [place] [address] [facility] [place] [address] [place] [address] Referral ID Status Reason Start Date Expiration Date V isits Requested Visits Authorized [id number] Closed Auto-Generate d Referral 06/24/2021 06/24/2022 1 1 * Outpatient Procedure (Routine) - Closed Specialty Diagnoses / Procedures Referred By Fiona sánchez Referred To Contact [facility] Diagnoses Screening for colon cancer Procedures COLONOSCOPY SCREENING COLONOSCOPY FLX DX W/COLLJ SPEC WHEN PFRMD Smiley Huitron PA-C [address] [place] [address] [facility] [place] [address] [place] [id number] Referral ID Status Reason Start Date Expiration Date V isits Requested Visits Authorized [id number] Closed Auto-Generate d Referral 06/24/2021 06/24/2022 1 1 [facility] for referral (narrative)* Outpatient Procedure (Routine) - Pending Review Specialty Diagnoses / Procedures Referred By Fiona sánchez Referred To Contact [facility] Diagnoses NSTEMI (non-ST elevated myocardial infarction) (HCC) ANÍBAL (obstructive sleep apnea) Essential hypertension, benign Coronary artery disease involving [place] coronary artery of [place] heart without angina pectoris Procedures ECG COMPLETE ECG ROUTINE ECG W/LEAST 12 LDS W/I&[place] [address] [place] [address] [facility] [address] [address] Referral ID Status Reason Start Date Expiration Date Visits Requested Visits Authorized [id number] Pending Review Auto-Generat ed Referral 10/19/2022 10/19/2023 1 1 [facility] for visit Narrative* Outpatient Procedure (Routine) - Closed Specialty Diagnoses / Procedures Referred By Fiona sánchez Referred To Contact [facility] Diagnoses Gastroesophageal reflux disease, unspecified whether esophagitis present Procedures EGD DIAGNOSTIC ESOPHAGOGASTRODUODENOSC OPY TRANSORAL DIAGNOSTIC Smiley Huitron PA-C [address] [place] [address] [facility] [place] [address] [place] [address] Referral ID Status Reason Start Date Expiration Date V isits Requested Visits Authorized [id number] Closed Auto-Generate d Referral 06/24/2021 06/24/2022 1 1 [facility] [place] Advance Directives Documents on File Type Date Recorded Patient Wirer Passenger Car Expl anation Advance Directives and Livin g Will 09/22/2020 9:55 PM Documents on File Type Date Recorded Patient Wirer Passenger Car Expl anation Advance Directive(s) 08/03/2021 2:10 PM Documents on File Type Date Recorded Patient Wirer Passenger Car Expl anation Advance Directive(s) 08/19/2021 9:31 AM Advance Directive(s) 08/03/2021 2:10 PM Documents on File Type Date Recorded Patient Wirer Passenger Car Expl anation Advance Directive(s) 08/19/2021 9:31 AM Advance Directive(s) 08/03/2021 2:10 PM Summary Purpose Family History No Family History Records FoundNo Family History Records FoundNo Family History Records FoundNo Family History Records FoundNo Family History Records Found Medications Administered Section Inactive Administered Medications - up to 3 most recent administrations Medication Order MAR Action Action Date Dose Rate Site benzocaine 20% 1 [place] (TOPEX) 1 [place], TOPICAL, DIRECTED, Starting on Tue08/19/21 at 1100, Until Tue08/19/21 at 1459, DOSING DIRECTED BY PHYSICIAN FOR PROCEDURAL SEDATION ONLY - Pharmaceutical Waste: Aerosol -, Intraprocedure Given 08/19/2021 10:30 AM EDT 1 [place] lactated ringers iv infusion 30 mL/hr, INTRAVENOUS, CONTINUOUS, Starting on Tue08/19/21 at 1030, Until Tue08/19/21 at 1104, Preprocedure Restarted 08/19/2021 10:57 AM EDT Inactive Administered Medications - up to 3 most recent administrations Medication Order MAR Action Action Date Dose Rate Site tropicamide 0.5 % 1 Drop (MYDRIACYL) 1 Drop, BOTH EYES, DIRECTED, Starting on Na 12/30/22 at 1000, Until Na 12/30/22 at 2159, Administer for dilation Given 12/30/2022 10:00 AM EDT 1 Drop Reason for Referral Specialty Diagnoses / Procedures Referred By Fiona sánchez Referred To Contact Rheumatology Diagnoses Polyarthralgia Corinne Fairchild, SOLE [employer] WELT [address] [phone] Referral ID Status Reason Start Date Expiration Date Visits Requested Visits Authorized [id number] Authorized Patient Preference 06/01/2022 06/01/2023 1 1 Additional Source Comments Reason for Visit (unrecogniz ed section and content) Specialty Diagnoses / Procedures Referred By Contac t Referred To Contact Physical Therapy / PHYSICAL THERAPY Diagnoses S/P RT KNEE TKR DOS 01-24-23 DONE AT OUTSIDE FACILITY OUTSIDE REF.WILL BRING IN Procedures NEW RS PT TOTAL JOINT Juan Craig MD [address] [place] [address] Tomasz Wisdom, PT [address] [place] [address] Referral ID Status Reason Start Date Expiration Date V isits Requested Visits Authorized [id number] Authorized 01/26/2023 04/10/2023 8 8 Reason Comments Pain Reason Onset Date Comments Virtualist 07/20/2021 Reason Comments Face Pain Reason Comments congestion and facial pain x 4 days-also has an sinus KRUGER Reason Comments Cardiology Follow Up Reason Comments Procedure Follow Up EGD and colonoscopy completed 08/19/2021 Reason Comments Referral Information [facility] finding of lesion on epiglottis Reason Comments Follow Up colonoscopy and EGD Reason Comments Pain (foot) Follow Up Reason Onset Date Comments Refill Request 09/04/2021 Reason Comments Ear Pain right side ear and j aw pain, right side gland and teeth pain x 2 days Reason Comments Yearly Exam Reason Onset Date Comments Medication Refill 12/22/2021 Reason Comments Results Reason Comments Pain Reason Comments Refill Request Reason Comments Other Cardiac Clearance Reason Comments Pre-Op Exam Reason Comments PT Eval Referral ID Status Reason Start Date Expiration Date Visits Re quested Visits Authorized [id number] Open 01/26/2023 04/26/2023 1 1 Specialty Diagnoses / Procedures Referred By Contac t Referred To Contact Physical Therapy / PHYSICAL THERAPY Diagnoses H/O total knee replacement Knee pain S/P RT KNEE TKR Procedures THERAPEUTIC EXERCISES RE, EA 15 MIN. EST RS PT ORTH MSK Juan Craig MD [address] [place] [address] Tomasz Wisdom, PT [address] [place] [address] Referral ID Status Reason Start Date Expiration Date V isits Requested Visits Authorized [id number] Authorized 02/22/2023 04/10/2023 16 16 Specialty Diagnoses / Procedures Referred By Contsimon t Referred To Contact PHYSICAL THERAPY Diagnoses Z96.659 (ICD-10-CM) - H/O total knee replacement M25.569 (ICD-10-CM) - Knee pain Procedures Z96.659 (ICD-10-CM) - H/O total knee replacement M25.569 (ICD-10-CM) - Knee pain Juan Craig MD [address] [place] [address] [facility] [address] [place] [address] Referral ID Status Reason Start Date Expiration Date V isits Requested Visits Authorized [id number] Authorized 04/11/2023 04/10/2024 8 8 Reason Comments Edema Bilateral lower legs Dizziness Shortness of Breath (unrecognized sect ion and content) No Status Records FoundNo Status Records FoundNo Status Records FoundNo Status Records FoundNo Status Records Found INFORMATION SOURCE (unrecogn ized section and content) DATE CREATED AUTHOR AUTHOR'S ORGANIZ ATION 08/21/2021 [facility] DATE CREATED AUTHOR AUTHOR'S ORGANIZ ATION 06/05/2022 [facility] DATE CREATED AUTHOR AUTHOR'S ORGANIZ ATION 08/16/2022 [facility] DATE CREATED AUTHOR AUTHOR'S ORGANIZ ATION 05/13/2023 [facility] Source Comments (unrecognize d section and content) In the event this informatio n is protected by the Federal Confidentiality of Alcohol and Drug Abuse Patient Records regulations: The Federal rules restrict any use of the information to criminally investigate or prosecute any alcohol or drug abuse patient.[facility] the event this information is protected by the Federal Confidentiality of Alcohol and Drug Abuse Patient Records regulations: The Federal rules restrict any use of the information to criminally investigate or prosecute any alcohol or drug abuse patient.[facility] the event this information is protected by the Federal Confidentiality of Alcohol and Drug Abuse Patient Records regulations: The Federal rules restrict any use of the information to criminally investigate or prosecute any alcohol or drug abuse patient.[facility] the event this information is protected by the Federal Confidentiality of Alcohol and Drug Abuse Patient Records regulations: The Federal rules restrict any use of the information to criminally investigate or prosecute any alcohol or drug abuse patient.[facility] the event this information is protected by the Federal Confidentiality of Alcohol and Drug Abuse Patient Records regulations: The Federal rules restrict any use of the information to criminally investigate or prosecute any alcohol or drug abuse patient.[facility] the event this information is protected by the Federal Confidentiality of Alcohol and Drug Abuse Patient Records regulations: The Federal rules restrict any use of the information to criminally investigate or prosecute any alcohol or drug abuse patient.[facility] the event this information is protected by the Federal Confidentiality of Alcohol and Drug Abuse Patient Records regulations: The Federal rules restrict any use of the information to criminally investigate or prosecute any alcohol or drug abuse patient.[facility] the event this information is protected by the Federal Confidentiality of Alcohol and Drug Abuse Patient Records regulations: The Federal rules restrict any use of the information to criminally investigate or prosecute any alcohol or drug abuse patient.[facility] the event this information is protected by the Federal Confidentiality of Alcohol and Drug Abuse Patient Records regulations: The Federal rules restrict any use of the information to criminally investigate or prosecute any alcohol or drug abuse patient.[facility] the event this information is protected by the Federal Confidentiality of Alcohol and Drug Abuse Patient Records regulations: The Federal rules restrict any use of the information to criminally investigate or prosecute any alcohol or drug abuse patient.[facility] the event this information is protected by the Federal Confidentiality of Alcohol and Drug Abuse Patient Records regulations: The Federal rules restrict any use of the information to criminally investigate or prosecute any alcohol or drug abuse patient.[facility] the event this information is protected by the Federal Confidentiality of Alcohol and Drug Abuse Patient Records regulations: The Federal rules restrict any use of the information to criminally investigate or prosecute any alcohol or drug abuse patient.[facility] the event this information is protected by the Federal Confidentiality of Alcohol and Drug Abuse Patient Records regulations: The Federal rules restrict any use of the information to criminally investigate or prosecute any alcohol or drug abuse patient.[facility]In the event this information is protected by the Federal Confidentiality of Alcohol and Drug Abuse Patient Records regulations: The Federal rules restrict any use of the information to criminally investigate or prosecute any alcohol or drug abuse patient.[facility]In the event this information is protected by the Federal Confidentiality of Alcohol and Drug Abuse Patient Records regulations: The Federal rules restrict any use of the information to criminally investigate or prosecute any alcohol or drug abuse patient.[facility] the event this information is protected by the Federal Confidentiality of Alcohol and Drug Abuse Patient Records regulations: The Federal rules restrict any use of the information to criminally investigate or prosecute any alcohol or drug abuse patient.[facility] the event this information is protected by the Federal Confidentiality of Alcohol and Drug Abuse Patient Records regulations: The Federal rules restrict any use of the information to criminally investigate or prosecute any alcohol or drug abuse patient.[facility]In the event this information is protected by the Federal Confidentiality of Alcohol and Drug Abuse Patient Records regulations: The Federal rules restrict any use of the information to criminally investigate or prosecute any alcohol or drug abuse patient.[facility] [place]woodIn the event this information is protected by the Federal Confidentiality of Alcohol and Drug Abuse Patient Records regulations: The Federal rules restrict any use of the information to criminally investigate or prosecute any alcohol or drug abuse patient.[facility]In the event this information is protected by the Federal Confidentiality of Alcohol and Drug Abuse Patient Records regulations: The Federal rules restrict any use of the information to criminally investigate or prosecute any alcohol or drug abuse patient.[facility]woodIn the event this information is protected by the Federal Confidentiality of Alcohol and Drug Abuse Patient Records regulations: The Federal rules restrict any use of the information to criminally investigate or prosecute any alcohol or drug abuse patient.[facility]woodIn the event this information is protected by the Federal Confidentiality of Alcohol and Drug Abuse Patient Records regulations: The Federal rules restrict any use of the information to criminally investigate or prosecute any alcohol or drug abuse patient.[facility]In the event this information is protected by the Federal Confidentiality of Alcohol and Drug Abuse Patient Records regulations: The Federal rules restrict any use of the information to criminally investigate or prosecute any alcohol or drug abuse patient.[facility] [place]woodIn the event this information is protected by the Federal Confidentiality of Alcohol and Drug Abuse Patient Records regulations: The Federal rules restrict any use of the information to criminally investigate or prosecute any alcohol or drug abuse patient.[facility] [place]woodIn the event this information is protected by the Federal Confidentiality of Alcohol and Drug Abuse Patient Records regulations: The Federal rules restrict any use of the information to criminally investigate or prosecute any alcohol or drug abuse patient.[facility] [place]woodIn the event this information is protected by the Federal Confidentiality of Alcohol and Drug Abuse Patient Records regulations: The Federal rules restrict any use of the information to criminally investigate or prosecute any alcohol or drug abuse patient.[facility] [place]woodIn the event this information is protected by the Federal Confidentiality of Alcohol and Drug Abuse Patient Records regulations: The Federal rules restrict any use of the information to criminally investigate or prosecute any alcohol or drug abuse patient.[facility] [place]woodIn the event this information is protected by the Federal Confidentiality of Alcohol and Drug Abuse Patient Records regulations: The Federal rules restrict any use of the information to criminally investigate or prosecute any alcohol or drug abuse patient.[facility] [place]woodIn the event this information is protected by the Federal Confidentiality of Alcohol and Drug Abuse Patient Records regulations: The Federal rules restrict any use of the information to criminally investigate or prosecute any alcohol or drug abuse patient.[facility] [place]woodIn the event this information is protected by the Federal Confidentiality of Alcohol and Drug Abuse Patient Records regulations: The Federal rules restrict any use of the information to criminally investigate or prosecute any alcohol or drug abuse patient.[facility] [place]woodIn the event this information is protected by the Federal Confidentiality of Alcohol and Drug Abuse Patient Records regulations: The Federal rules restrict any use of the information to criminally investigate or prosecute any alcohol or drug abuse patient.[facility] [place]woodIn the event this information is protected by the Federal Confidentiality of Alcohol and Drug Abuse Patient Records regulations: The Federal rules restrict any use of the information to criminally investigate or prosecute any alcohol or drug abuse patient.[facility] [place]woodIn the event this information is protected by the Federal Confidentiality of Alcohol and Drug Abuse Patient Records regulations: The Federal rules restrict any use of the information to criminally investigate or prosecute any alcohol or drug abuse patient.[facility] [place]woodIn the event this information is protected by the Federal Confidentiality of Alcohol and Drug Abuse Patient Records regulations: The Federal rules restrict any use of the information to criminally investigate or prosecute any alcohol or drug abuse patient.[facility] [place]woodIn the event this information is protected by the Federal Confidentiality of Alcohol and Drug Abuse Patient Records regulations: The Federal rules restrict any use of the information to criminally investigate or prosecute any alcohol or drug abuse patient.[facility]In the event this information is protected by the Federal Confidentiality of Alcohol and Drug Abuse Patient Records regulations: The Federal rules restrict any use of the information to criminally investigate or prosecute any alcohol or drug abuse patient.[facility] [place] Care Teams (unrecognized sec tion and content) Surgical Scrub Technologist Relationship Specialty Start Date End Date Scooter Esquivel MD [address] [place] [address] PCP - General Family Practice 01/09/19 Caroline Romo MD Primary Staff Physician Cardiology 06/27/18 Surgical Scrub Technologist Relationship Specialty Start Date End Date Scooter Esquivel MD [address] [place] [address] PCP - General Family Practice 01/09/19 Caroline Romo MD Primary Staff Physician Cardiology 06/27/18 Surgical Scrub Technologist Relationship Specialty Start Date End Date Scooter Esquivel MD [address] [place] [address] PCP - General Family Practice 01/09/19 Caroline Romo MD Primary Staff Physician Cardiology 06/27/18 Surgical Scrub Technologist Relationship Specialty Start Date End Date Scooter Esquivel MD [address] [place] [address] PCP - General Family Practice 01/09/19 Caroline Romo MD Primary Staff Physician Cardiology 06/27/18 Surgical Scrub Technologist Relationship Specialty Start Date End Date Scooter Esquivel MD [facility] [place] [address] PCP - General Family Practice 01/09/19 Caroline Romo MD Primary Staff Physician Cardiology 06/27/18 Surgical Scrub Technologist Relationship Specialty Start Date End Date Scooter Esquivel MD [address] [place] [address], [place] [address] PCP - General Family Practice 01/09/19 Caroline Romo MD Primary Staff Physician Cardiology 06/27/18 Surgical Scrub Technologist Relationship Specialty Start Date End Date Scooter Esquivel MD [address] [place] [address], [place] [address] PCP - General Family Practice 01/09/19 Caroline Romo MD Primary Staff Physician Cardiology 06/27/18 Surgical Scrub Technologist Relationship Specialty Start Date End Date Scooter Esquivel MD [address] [place] [address], [place] [address] PCP - General Family Practice 01/09/19 Caroline Romo MD Primary Staff Physician Cardiology 06/27/18 Surgical Scrub Technologist Relationship Specialty Start Date End Date Scooter Esquivel MD [address] [place] [address], [place] [address] PCP - General Family Medicine 09/22/20 Surgical Scrub Technologist Relationship Specialty Start Date End Date Scooter Esquivel MD [address] [place] [address], [place] [address] PCP - General Family Medicine 01/09/19 Caroline Romo MD [address] [place] [address], [place] [address] Primary Staff Physician Cardiology 06/27/18 Surgical Scrub Technologist Relationship Specialty Start Date End Date Scooter Esquivel MD [facility] [place] [address] PCP - General Family Medicine 01/09/19 Caroline Romo MD [address] [place] [address] Primary Staff Physician Cardiology 06/27/18 Surgical Scrub Technologist Relationship Specialty Start Date End Date Scooter Esquivel MD [address] [place] [address] PCP - General Family Medicine 09/22/20 Surgical Scrub Technologist Relationship Specialty Start Date End Date Scooter Esquivel MD [address] [place] [address] PCP - General Family Medicine 09/22/20 Surgical Scrub Technologist Relationship Specialty Start Date End Date Scooter Esquivel MD [address] [place] [address] PCP - General Family Medicine 09/22/20 Surgical Scrub Technologist Relationship Specialty Start Date End Date Scooter Esquivel MD [address] [place] [address] PCP - General Family Medicine 01/09/19 Caroline Romo MD [address] [place] [address] Primary Staff Physician Cardiology 06/27/18 Surgical Scrub Technologist Relationship Specialty Start Date End Date Scooter Esquivel MD [address] [place] [address] PCP - General Family Medicine 01/09/19 Caroline Romo MD [address] [place] [address] Primary Staff Physician Cardiology 06/27/18 Surgical Scrub Technologist Relationship Specialty Start Date End Date Scooter Esquivel MD [address] [place] [address] PCP - General Family Medicine 01/09/19 Caroline Romo MD [address] [place] [address] Primary Staff Physician Cardiology 06/27/18 Surgical Scrub Technologist Relationship Specialty Start Date End Date Scooter Esquivel MD [address] [place] [address] PCP - General Family Medicine 01/09/19 Caroline Romo MD [address] [place] [address] Primary Staff Physician Cardiology 06/27/18 Surgical Scrub Technologist Relationship Specialty Start Date End Date Scooter Esquivel MD [address] [place] [address] PCP - General Family Medicine 01/09/19 Caroline Romo MD [address] [place] [address] Primary Staff Physician Cardiology 06/27/18 Surgical Scrub Technologist Relationship Specialty Start Date End Date Scooter Esquivel MD [address] [place] [address] PCP - General Family Medicine 01/09/19 Caroline Romo MD [address] [place] [address] Primary Staff Physician Cardiology 06/27/18 Surgical Scrub Technologist Relationship Specialty Start Date End Date Scooter Esquivel MD [address] [facility] [place] [address] PCP - General Family Medicine 01/09/19 Caroline Romo MD [address] [facility] [place] [address] Primary Staff Physician Cardiology 06/27/18 Surgical Scrub Technologist Relationship Specialty Start Date End Date Scooter Esquivel MD [address] [facility] [place] [address] PCP - General Family Medicine 01/09/19 Caroline Romo MD [address] [facility] [place] [address] Primary Staff Physician Cardiology 06/27/18 Surgical Scrub Technologist Relationship Specialty Start Date End Date Scooter Esquivel MD [address] [facility] [place] [place] [address] PCP - General Family Medicine 01/09/19 Caroline Romo MD [address] [facility] [place] [address] Primary Staff Physician Cardiology 06/27/18 Surgical Scrub Technologist Relationship Specialty Start Date End Date Scooter Esquivel MD [address] [facility] [place] [place] [address] PCP - General Family Medicine 01/09/19 Caroline Romo MD [address] [facility] [place] [place] [address] Primary Staff Physician Cardiology 06/27/18 Surgical Scrub Technologist Relationship Specialty Start Date End Date Scooter Esquivel MD [address] [facility] [place] [address] PCP - General Family Medicine 01/09/19 Caroline Romo MD [address] [facility] [place] [address] Primary Staff Physician Cardiology 06/27/18 Surgical Scrub Technologist Relationship Specialty Start Date End Date Scooter Esquivel MD [address] [place] [address] PCP - General Family Medicine 01/09/19 Caroline Rmoo MD [address] [facility] [place] [address] Primary Staff Physician Cardiology 06/27/18 Surgical Scrub Technologist Relationship Specialty Start Date End Date Scooter Esquivel MD [address] [place] [address] PCP - General Family Medicine 01/09/19 Caroline Romo MD [address] [facility] [place] [address] Primary Staff Physician Cardiology 06/27/18 Surgical Scrub Technologist Relationship Specialty Start Date End Date Scooter Esquivel MD [address] [place] [address] PCP - General Family Medicine 01/09/19 Caroline Romo MD [address] [place] [address] Primary Staff Physician Cardiology 06/27/18 Surgical Scrub Technologist Relationship Specialty Start Date End Date Scooter Esquivel MD [address] [place] [address] PCP - General Family Medicine 01/09/19 Caroline Romo MD [address] [place] [address] Primary Staff Physician Cardiology 06/27/18 FOR RECORDS PERTAINING TO PATIENTS WHO ARE OR HAVE BEEN ENROLLED IN A CHEMICAL DEPENDENCY/SUBSTANCEABUSE PROGRAM, SOME INFORMATION MAY BE OMITTED. This clinical summary was aggregated from multiple sources. Caution should be exercised in using it in the provision of clinical care. This summary normalizes information from multiple sources, and as a consequence, information in this document may materially change the coding, format and clinical context of patient data. In addition, data may be omitted in some cases. CLINICAL DECISIONS SHOULD BE BASED ON THE PRIMARY CLINICAL RECORDS. [employer] provides no warranty or guarantee of the accuracy or completeness of information in this document.
--- NOTE | 2023-05-17 20:41 | EDS_ITS ---
HPI History of Present Illness Chief Complaint: Abn Labs Narrative Narrative: 52-year-old male presenting with leg swelling. He states he had knee surgery on his right knee in January and since then has had intermittent swelling. He notes that he has not been as active over the last several months. He is able to ambulate. He has not been working as much. 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 He called his orthopedic surgeon who put him on dexamethasone and he also has him on meloxicam. Patient notes that when he got back to work this week that he was short of breath with exertion as well. He denies having any chest pain. Patient has no history of DVT/PE, his last surgery was in January which is 5 months ago no history of malignancy, he is not immobilized, he is not bedridden. Patient states he saw his primary care physician's nurse practitioner and told her about the swelling in the legs and the shortness of breath and she ordered a D-dimer as an outpatient. No other lab work or imaging was ordered. Patient states he was at a [employer] and his nurse practitioner called stating that his D-dimer was 0.75 and then he needed to go to the emergency room. Patient states he was initially panicked but is calm now. No history of CHF. Does not describe any orthopnea. [facility] Medical History HTN (hypertension) Home Medications albuterol sulfate 90 mcg/actuation aerosol inhaler 2 inh inhalation Q4H PRN sob 12/26/20 [History Last Taken Unknown] meloxicam 15 mg tablet 15 mg PO DAILY 12/26/20 [History Last Taken Unknown] Allergy/AdvReac Type Severity Reaction Status Date / Time ampicillin Allergy Rash Verified 05/17/23 18:51 lisinopril AdvReac cough Verified 05/17/23 18:51 Social History Smoking Status: Unknown if ever smoked ROS ROS ED Constitutional Constitutional ED: Denies chills, fever(s) or sweats Eyes Eyes: Denies blurry vision or change in vision ENT ENT ED: Denies ear pain or sore throat Cardiovascular Cardiovascular: Denies chest pain, palpitations or racing heartbeat Respiratory/Chest Respiratory/Chest: Reports dyspnea; Denies cough or sputum Gastrointestinal Gastrointestinal: Denies abdominal pain, constipation, diarrhea, nausea or vomiting Genitourinary Genitourinary ED: Denies dysuria, hematuria or urinary frequency Musculoskeletal Musculoskeletal: Reports other Details: Right lower extremity swelling ; Denies arthralgias, myalgias or neck pain Integumentary Reports other; Denies abscess, Abrasions or rash Neurologic Neurologic: Denies headache(s), paresthesias or weakness Psychiatric Psychiatric: Denies anxiety, depression, suicidal ideation or suicidal thoughts Endocrine Endocrinology: Denies polydipsia or polyuria EXAM Physical Exam Const Vital Signs: 05/17/23 18:49 05/17/23 18:49 05/17/23 20:42 Temperature 97.6 F L Temperature Source Temporal Pulse Rate 92 Respiratory Rate 20 H Respiratory Effort Short of Breath Respiratory Pattern Normal Blood Pressure 188/96 H Blood Pressure Mean 126 Pulse Ox 96 95 Oxygen Delivery Method Room Air Room Air 05/17/23 20:42 Temperature Temperature Source Pulse Rate 77 Respiratory Rate 13 Respiratory Effort Respiratory Pattern Blood Pressure Blood Pressure Mean Pulse Ox 96 Oxygen Delivery Method Room Air Positive well nourished General Appearance ED: NAD; Negative for pallor HEENT Reports moist mucous membranes Eyes PERRL and EOMs intact bilaterally Neck no lymphadenopathy Chest Wall inspection of chest normal Resp normal respiratory effort and clear to auscultation bilaterally Auscultation: Negative for rales, rhonchi or wheezes Cardio regular rate and regular rhythm GI normal to inspection, nondistended, normoactive bowel sounds Neuro oriented x3 and CN's II-XII intact bilaterally Sensorium / Orientation: alert Motor Exam: strength 5/5 throughout Psych mental status grossly normal Skin no rashes or lesions noted and no wounds General Skin Exam: Negative for jaundice or pallor MDM MDM MDM Narrative Medical decision making narrative: Patient presented with shortness of breath. 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 He has right lower extremity edema which has been present on and off since he had his knee surgery in January. No history of DVT. Patient states his left lower extremity was swollen yesterday but at night it gets better. He elevates both of his legs and they are both improved. Patient had an elevated D-dimer and his DVT study is negative here. I have a low suspicion for PE as he is not have any chest pain. Is not hypoxic. He is not tachycardic or tachypneic. Differential also includes pneumonia, CHF, dehydration, anemia, electrolyte normalities, debility. CBC will be obtained to assess white blood cell count, hemoglobin, platelets. BMP to assess renal function, electrolytes, glucose. High-sensitivity troponin and EKG to assess for ischemia/dysrhythmia. Chest x-ray to rule out pneumonia. Patient declines analgesia at this time. EKG on my interpretation shows a normal sinus rhythm with a ventricular rate of 78 bpm without sign ischemic change or ectopy. CBC shows normal white blood cell count of 5. Platelets 267. Renal function electrolytes within normal limits. High-sensitivity troponin 6. BNP 8.2. Chest x-ray on my interpretation is negative process. Given the patient is a negative DVT study and no chest pain with normal vital signs I have low suspicion for PE. Patient counseled this. He is amenable to discharge home. Return precautions are discussed. Impression: 1. Dyspnea 2. Lower extremity edema Lab Data Attestation: I reviewed the patient's lab results. Labs: Laboratory Results - last 24 hr 05/17/23 19:08 WBC 9.5 RBC 4.88 Hgb 14.6 Hct 42.4 MCV 86.9 MCH 29.9 MCHC 34.4 RDW Std Deviation 41.7 RDW Coeff of Gem 13.4 Plt Count 267 MPV 9.5 Immature Gran % (Auto) 0.600 Neut % (Auto) 73.0 H Lymph % (Auto) 18.3 L Wilcox % (Auto) 7.5 Eos % (Auto) 0.2 Baso % (Auto) 0.4 Absolute Neuts (auto) 7.0 Absolute Lymphs (auto) 1.75 Nucleated RBC % 0 Sodium 135 L Potassium 3.6 Chloride 103 Carbon Dioxide 27.0 Anion Gap 5 BUN 23 H Creatinine 1.13 Estim Creat Clear Calc 89.54 Est GFR (MDRD) Af Amer 88 Est GFR (MDRD) Non-Af 72 BUN/Creatinine Ratio 20.4 H Glucose 214 H Calcium 8.6 Troponin I High Sens 6 B-Natriuretic Peptide 8.2 Radiography Diagnostic Testing: Clinical Impression(s) from Imaging Studies Venous Duplex 05/17/23 19:35 IMPRESSION: No evidence for DVT. Electronically Signed: Asher Reilly MD at 21:17 EST , Chest X-Ray 05/17/23 20:50 IMPRESSION: Normal x-ray examination of the chest. Electronically Signed: Asher Reilly MD at 21:30 EST , Discharge Plan Triage Chief Complaint: Abn Labs ED Provider: Adolph Saunders Dx/Rx/DC Orders Prescriptions: No Action meloxicam 15 mg tablet 15 mg PO DAILY Patient Comments: TAKE 1 (ONE) TABLET (15 MG TOTAL) BY MOUTH DAILY . albuterol sulfate 90 mcg/actuation HFA aerosol inhaler 2 inh INHALATION Q4H PRN (Reason: sob) Patient Comments: INHALE 2 PUFFS INSTRUCTED EVERY 4 HOURS NEEDED FOR WHEEZING/SHORTNESS OF BREATH. Primary Care Provider: Scooter Esquivel Referrals: Scooter Esquivel MD [Primary Care Provider] -
[2023-05-17 20:42] VITALS: PULSE 77; RESP 13; O2SAT 95; O2SAT 96
--- NOTE | 2023-05-17 20:50 | RAD_ITS ---
STUDY: X-RAY CHEST REASON FOR EXAM: Male, 52 years old. chest pain TECHNIQUE: Single AP portable view of the chest. COMPARISON: None. FINDINGS: The lungs are clear and expanded. There is no demonstrated pleural abnormality. Normal size heart. Normal mediastinum and adair. Normal visualized pulmonary arteries. Normal visualized aortic arch and descending thoracic aorta. Normal visualized thoracic spine. Normal visualized ribs, clavicles, and shoulders. There is no demonstrated abnormality of the visualized soft tissue structures of the upper abdomen. RAD/Chest 1 View (Portable) IMPRESSION: Normal x-ray examination of the chest. Electronically Signed: Asher Reilly MD at 21:30 EST ,
[2023-05-17 20:53] LABS: Absolute Lymphocyte Count 1.75 X10^3/uL (0.83-4.51); Basophil# 0.04 X10^3/uL; Basophil% 0.4 % (0-1); Eosinophil# 0.02 X10^3/uL; Eosinophils% 0.2 % (0-5); Hematocrit 42.4 % (40-54); Hemoglobin 14.6 g/dL (13.0-16.5); Lymphocyte # 1.75 X10^3/ul (0.83-4.51); Lymphocyte % 18.3 % (19-41); Mean Corp Hgb Conc 34.4 g/dL (32-36); Mean Corpuscular Hgb 29.9 pg (27.0-32.0); Mean Corpuscular Volume 86.9 fL (80-94); Mean Platelet Vol. 9.5 fl (6.2-12.0); Monocyte# 0.72 X10^3/uL; Monocyte% 7.5 % (0-10); NRBC Flagged by Analyzer 0 % (0-5); Neutrophil # 6.95 X10^3/uL (2.7-7.7); Platelet Count 267 K/mm3 (150-450); RBC Distribution Width CV 13.4 % (11.6-14.6); RBC Distribution Width SD 41.7 fl (35.1-43.9); Red Blood Count 4.88 M/mm3 (4.6-6.2); White Blood Count 9.5 K/mm3 (4.4-11.0)
[2023-05-17 21:10] LABS: Anion Gap 5 (5-15); BUN 23 mg/dL (7-18); BUN/Creat Ratio 20.4 RATIO (10-20); Calcium,Total 8.6 mg/dL (8.5-10.1); Chloride 103 mmol/L (98-107); Creatinine, Serum 1.13 mg/dL (0.70-1.30); EST Glomerular Filtration Rate 72 mL/min (>60); Est Glom Filt Rate - Afr Amer 88 mL/min (>60); Estimated Creatinine Clearance 89.54 ml/min; Glucose 214 mg/dL (74-106); Potassium 3.6 mmol/L (3.5-5.1); Sodium Level 135 mmol/L (136-145); Troponin-I HS 6 pg/mL (3.0-78.0)
[2023-05-17 21:17] LABS: BNP,B-Type NATRIURETIC PEPTIDE 8.2 pg/mL (0-100)
[2023-05-17 21:58] VITALS: BP 156/80; PULSE 73; RESP 19; O2SAT 97
== END 2023-05-17 22:09 | disposition home or self-care (01) ==
PROVIDERS: Emergency Provider Student in an Organized Health Care Education/Training Program; PCP Family Medicine; Visit Provider Student in an Organized Health Care Education/Training Program
DX: R06.00 Dyspnea, unspecified (principal); R60.0 Localized edema; I10 Essential (primary) hypertension
CPT/HCPCS: 71045; 80048; 83880; 84484; 85025; 93005; 93971; 99284; A4216